=== PATIENT | male | born 1940 | race Caucasian/White ===

== ENCOUNTER 2016-09-21 07:25 | Day surgery (SDC) | payer MEDICARE, BC ==
[2016-09-20 10:16] VITALS: BMI 36.1
[~2016-09-21 07:25] MED LIST: LACTATED RINGERS 1,000 ML IV SCH; LIDOCAINE 1% 20 ML VIAL (10MG/ML) FOR IV START INTRADERMA PRN
[2016-09-21 07:43] VITALS: RESP 16; TEMP 97.3
[2016-09-21 07:57] LABS: Glucose,Whole Blood 152 mg/dL (75-99)
--- NOTE | 2016-09-21 08:10 | P.GSHP ---
History of Present Illness H&P Date: 09/21/16 CHIEF COMPLAINT: GERD HISTORY OF PRESENT ILLNESS: The patient is a 75-year-old male who presents reports gastroesophageal reflux disease. Upper endoscopy was offered for further evaluation and management. PAST MEDICAL HISTORY: Please see list. PAST SURGICAL HISTORY: Please see list. MEDICATIONS: Please see list. ALLERGIES: Please see list. SOCIAL HISTORY: No illicit drug use FAMILY HISTORY: No reports of Crohn disease or ulcerative colitis. REVIEW OF ORGAN SYSTEMS: CONSTITUTIONAL: No reports of fevers or chills. GI: Denies any blood in stools or constipation. PHYSICAL EXAM: VITAL SIGNS: Stable GENERAL: Well-developed and pleasant in no acute distress. HEENT: No scleral icterus. Extraocular movements grossly intact. Moist buccal mucosa. NECK: Supple without lymphadenopathy. CHEST: Unlabored respirations. Equal bilateral excursions. CARDIOVASCULAR: Regular rate and rhythm. Distal 2+ pulses. ABDOMEN: Soft, nondistended. MUSCULOSKELETAL: No clubbing, cyanosis, or edema. ASSESSMENT: 1. Gastroesophageal reflux disease PLAN: 1. Recommend proceeding with an upper endoscopy Past Medical History Past Medical History: Coronary Artery Disease (CAD), Chest Pain / Angina, CVA/ TIA, Diabetes Mellitus, GERD/Reflux, Hyperlipidemia, Hypertension, Myocardial Infarction (MD), Prostate Disorder, Sleep Apnea/CPAP/BIPAP Additional Past Medical History / Comment(s): NEUROPATHY RADHA FEET, , CELLULITIS LT ANKLE, NEUROPATHY, POOR CIRULATION OF LOWER LEGS. 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, LT FOOT SKIN GRAFT, RADHA CATARACTS, Past Anesthesia/Blood Transfusion Reactions: No Reported Reaction Date of Last Stent Placement:: UNSURE-2009 Type of Cardiac Device: AICD Device Placement Date:: 2011 Past Psychological History: Anxiety, Depression Smoking Status: Former smoker Past Alcohol Use History: None Reported Additional Past Alcohol Use History / Comment(s): STARTED SMOKING AT AGE 16 QUIT 1975 SMOKED 1 PPD Past Drug Use History: None Reported - Past Family History Mother Family Medical History: CVA/TIA Medications and Allergies Home Medications Medication Instructions Recorded Confirmed Type Aspirin 81 mg PO DAILY 10/17/13 09/21/16 History Atorvastatin [Lipitor] 40 mg PO DAILY 10/17/13 09/20/16 History Cinnamon(Unknown) 1,000 mg PO DAILY 10/17/13 09/21/16 History Furosemide [Lasix] 40 mg PO DAILY 10/17/13 09/21/16 History Glimepiride [Amaryl] 2 mg PO DAILY 10/17/13 09/21/16 History Isosorbide Mononitrate [Imdur] 60 mg PO DAILY 10/17/13 09/21/16 History Lisinopril [Zestril] 10 mg PO DAILY 10/17/13 09/21/16 History Spironolactone [Aldactone] 25 mg PO DAILY 10/17/13 09/21/16 History metFORMIN HCL [Glucophage] 1,000 mg PO BID 10/17/13 09/21/16 History Metoprolol Tartrate [Lopressor] 50 mg PO BID 07/31/15 09/21/16 History Donepezil [Aricept] 10 mg PO HS 08/04/15 09/21/16 History Escitalopram [Lexapro] 10 mg PO DAILY 08/04/15 09/21/16 History sitaGLIPtin [Januvia] 50 mg PO DAILY 08/04/15 09/21/16 History Meclizine [Antivert] 25 mg PO QID PRN 09/20/16 09/21/16 History Memantine HCl [Namenda] 10 mg PO DAILY 09/20/16 09/20/16 History Allergies Allergy/AdvReac Type Severity Reaction Status Date / Time No Known Allergies Allergy Verified 09/20/16 10:09 Surgical - Exam Vital Signs Temp Pulse Resp BP Pulse Ox 97.3 F L 58 L 16 107/61 93 L 09/21/16 07:42 09/21/16 07:42 09/21/16 07:42 09/21/16 07:42 09/21/16 07:42 Results - Labs Abnormal Lab Results - Last 24 Hours (Table) 09/21/16 Range/Units 07:53 POC Glucose (mg/dL) 152 H (75-99) mg/dL
[2016-09-21] MEDS ORDERED: PROPOFOL 10 MG/ML 20 ML VIAL IV ONE (08:12)
--- NOTE | 2016-09-21 08:34 | P.PCN ---
Date of Procedure: 09/21/16 Preoperative Diagnosis: Postoperative Diagnosis: Procedure(s) Performed: Implants: Indications for Procedure: Operative Findings: Description of Procedure: PREOPERATIVE DIAGNOSIS: Dysphagia. Regurgitation. Gastroesophageal reflux disease. POSTOPERATIVE DIAGNOSIS: Dysphagia. Regurgitation. Gastroesophageal reflux disease. Esophageal stricture. Duodenitis. Gastritis. OPERATION: Esophagogastroduodenoscopy with biopsies along antrum. SURGEON: Aysha White MD ANESTHESIA: MAC. INDICATIONS: The patient is a 75-year-old male who presents with a history of reflux disease including dysphagia. Benefits and risks of the procedure were described. Informed consent was obtained. DESCRIPTION: The patient was brought into the endoscopy suite and laid in the left lateral decubitus position. An Olympus gastroscope was passed along the posterior oropharynx down to the distal esophagus where the squamocolumnar junction was encountered at 40 cm from the incisors. The stomach was entered and no bile reflux was found. Additional findings are listed below. Biopsies with cold forceps were obtained of the antrum. The first through third portion of the duodenum was examined and biopsied. Retroflexion of the scope confirmed Hill grade II lower esophageal valve. The squamocolumnar junction demostrated no acute LA grade A erosive esophagitis. Moderate tissue constructions along the distal esophagus was observed including stricture along the GE junction. [employer] 20 mm balloon was used to dilate the distal esophagus for 2 minutes. The stomach was desufflated. The patient tolerated the procedure well. FINDINGS: Squamocolumnar junction 40 cm from the incisors. Diaphragmatic hiatus 40 cm. Hill grade II lower esophageal valve. No LA grade A erosive esophagitis. Mild duodenitis. Minimal superficial gastritis. Tertiary contractions distal esophagus with mild stricture. RECOMMENDATIONS: Recommend manometry history of dysphasia. Upper endoscopy as needed. Plan - Discharge Summary New Discharge Prescriptions: No Action metFORMIN HCL [Glucophage] 1,000 mg PO BID Spironolactone [Aldactone] 25 mg PO DAILY Lisinopril [Zestril] 10 mg PO DAILY Isosorbide Mononitrate [Imdur] 60 mg PO DAILY Glimepiride [Amaryl] 2 mg PO DAILY Furosemide [Lasix] 40 mg PO DAILY Cinnamon(Unknown) 1,000 mg PO DAILY Atorvastatin [Lipitor] 40 mg PO DAILY Aspirin 81 mg PO DAILY Metoprolol Tartrate [Lopressor] 50 mg PO BID sitaGLIPtin [Januvia] 50 mg PO DAILY Escitalopram [Lexapro] 10 mg PO DAILY Donepezil [Aricept] 10 mg PO HS Memantine HCl [Namenda] 10 mg PO DAILY Meclizine [Antivert] 25 mg PO QID PRN PRN Reason: Vertigo Discharge Medication List Aspirin 81 mg PO DAILY 10/17/13 [History] Atorvastatin [Lipitor] 40 mg PO DAILY 10/17/13 [History] Cinnamon(Unknown) 1,000 mg PO DAILY 10/17/13 [History] Furosemide [Lasix] 40 mg PO DAILY 10/17/13 [History] Glimepiride [Amaryl] 2 mg PO DAILY 10/17/13 [History] Isosorbide Mononitrate [Imdur] 60 mg PO DAILY 10/17/13 [History] Lisinopril [Zestril] 10 mg PO DAILY 10/17/13 [History] Spironolactone [Aldactone] 25 mg PO DAILY 10/17/13 [History] metFORMIN HCL [Glucophage] 1,000 mg PO BID 10/17/13 [History] Metoprolol Tartrate [Lopressor] 50 mg PO BID 07/31/15 [History] Donepezil [Aricept] 10 mg PO HS 08/04/15 [History] Escitalopram [Lexapro] 10 mg PO DAILY 08/04/15 [History] sitaGLIPtin [Januvia] 50 mg PO DAILY 08/04/15 [History] Meclizine [Antivert] 25 mg PO QID PRN 09/20/16 [History] Memantine HCl [Namenda] 10 mg PO DAILY 09/20/16 [History] Follow up Appointment(s)/Referral(s): Aysha White MD [STAFF PHYSICIAN] - 10/04/16 () Patient Instructions/Handouts: Esophageal Dilation (DC) Activity/Diet/Wound Care/Special Instructions: Liquid diet today. Regular diet tomorrow. Discharge Disposition: HOME SELF-CARE
[2016-09-21 08:44] LABS: Glucose,Whole Blood 146 mg/dL (75-99)
[2016-09-21 08:45] VITALS: PULSE 50
[2016-09-21 09:18] VITALS: BP 139/69
== END 2016-09-21 09:30 | disposition home or self-care (01) ==
LOC: ORWHC2ENDO 07:25
PROVIDERS: ATTEND Surgery Plastic and Reconstructive Surgery
DX: K21.0 Gastro-esophageal reflux disease with esophagitis (principal); K22.2 Esophageal obstruction; K29.70 Gastritis, unspecified, without bleeding; K29.80 Duodenitis without bleeding; R13.10 Dysphagia, unspecified; I25.119 Atherosclerotic heart disease of native coronary artery with unspecified angina pectoris; E11.9 Type 2 diabetes mellitus without complications; I25.2 Old myocardial infarction; I10 Essential (primary) hypertension; F03.90 Unspecified dementia, unspecified severity, without behavioral disturbance, psychotic disturbance, mood disturbance, and anxiety; G62.9 Polyneuropathy, unspecified; F32.9 Major depressive disorder, single episode, unspecified; F41.9 Anxiety disorder, unspecified; Z86.14 Personal history of Methicillin resistant Staphylococcus aureus infection; Z87.891 Personal history of nicotine dependence; Z95.5 Presence of coronary angioplasty implant and graft; Z86.73 Personal history of transient ischemic attack (TIA), and cerebral infarction without residual deficits; Z79.899 Other long term (current) drug therapy; Z79.84 Long term (current) use of oral hypoglycemic drugs; Z79.82 Long term (current) use of aspirin; Z95.810 Presence of automatic (implantable) cardiac defibrillator
CPT/HCPCS: 88305; 88342; 43239; 43249; J2704; C1726

== ENCOUNTER → 2016-11-16 | Outpatient (CLI) | payer MEDICARE, BC ==
--- NOTE | 2016-11-16 11:36 | FL ---
MODIFIED SWALLOW / DEGLUTITION STUDY DATE OF EXAM: 11/16/2016 CLINICAL HISTORY: 76-year-old male with dysphagia and sensation of food sticking in the throat and es ophagus. Total fluoroscopy time: 1 minute 5 seconds. Total images: None. TECHNIQUE: Deglutition study is performed utilizing thin liquid barium, honey and nectar thick liqui d barium, barium thick applesauce, and barium coated cracker. COMPARISON: None. FINDINGS: The patient is edentulous. The oral and pharyngeal phases show satisfactory initiation and propagatio n with all modalities tested. Normal mastication is seen with solid modalities tested. There is no evidence of penetration or aspiration with any modality tested. No significant pharyngeal residue wa s appreciated. IMPRESSION: Normal deglutition study. Please refer to speech therapist notes for further details if necessary.
== END | disposition home or self-care (01) ==
LOC: RADFLMAIN 10:23
PROVIDERS: ATTEND Surgery Plastic and Reconstructive Surgery
DX: R13.10 Dysphagia, unspecified (principal)
CPT/HCPCS: 74230

== ENCOUNTER → 2017-04-11 | Outpatient (CLI) | payer MEDICARE, BC ==
[2017-04-11 13:47] LABS: Blood Urea Nitrogen 25 mg/dL (9-20); Non-African American GFR(MDRD) >60 (>60 ml/min/1.73 sqM)
--- NOTE | 2017-04-11 14:37 | CT ---
EXAMINATION TYPE: CT brain wo/w con DATE OF EXAM: 04/11/2017 COMPARISON: 12/01/2013 HISTORY: Visual distortions CT DLP: 2253.0 mGycm, Automated exposure control for dose reduction was used. CONTRAST: Patient injected with 100 ml mL of Omnipaque 300. CT of the brain is performed utilizing 3 mm thick sections through the posterior fossa and 3 mm thick sections through the remaining calvarium. Study is performed within 24 hours of arrival to the hospital. No abnormal hyperdensity is present to suggest an acute intracranial hemorrhage. No mass lesion is evident. No acute infarcts are evident. Periventricular white matter hypodensity is present, likely on the ba sis of chronic white matter ischemic type changes. Findings are stable from 2013. Ventricles and sulci are appropriate for the patient age. There is a retention cyst or polyp within the medial left maxillary sinus. Left septal spurring is no lyudmila. Optic chiasm appears unremarkable. Internal carotid arteries bifurcate into A1 and M1 segments. IMPRESSIONS: 1. Normal pre and postcontrast MRI brain
== END | disposition home or self-care (01) ==
LOC: RADCTMAIN 13:04
PROVIDERS: ATTEND Ophthalmology
DX: H53.8 Other visual disturbances (principal)
CPT/HCPCS: 82565; 84520; 70470; 36415; Q9967

== ENCOUNTER 2017-11-13 10:56 | Inpatient (IN) | payer MEDICARE, BC ==
[2017-11-13] MEDS ORDERED: SODIUM CHLORIDE 0.9% 500 ML IV STA (11:49)
[2017-11-13] MEDS ORDERED: ONDANSETRON 4 MG/2 ML VIAL IVP STA (11:49)
--- NOTE | 2017-11-13 11:53 | ED ---
Nausea/Vomiting/Diarrhea HPI - General Chief complaint: Nausea/Vomiting/Diarrhea Stated complaint: vomiting Time Seen by Provider: 11/13/17 11:25 Source: patient Mode of arrival: wheelchair Limitations: no limitations - History of Present Illness Initial comments: 77-year-old male patient presents to the emergency department today for evaluation of inability to keep down food or fluids. Patient's family states that whenever he eats or drinks anything and immediately comes back up. Patient states that he has been regurgitating foamy substance for the last 3-4 days. States that symptoms have been going on for about 1 month. States that food does not appear to be digested at all when it comes back up. Patient denies any discomfort in his throat, chest, or abdomen. reports that he has been intermittently complaining of some left-sided abdominal pain. Patient does have chronic diarrhea. He denies any fevers or chills with this. Denies any history of stroke. Did have an EGD with Dr. White approximately one year ago for similar but much more mild symptoms and she found no abnormalities. Patient denies any recent rash, fever, chills, shortness breath , chest pain, back pain, numbness, tingling, dizziness, weakness, hematuria, dysuria, urinary urgency, urinary frequency, headache, visual changes, or any other complaints. - Related Data Home Medications Medication Instructions Recorded Confirmed Atorvastatin [Lipitor] 40 mg PO DAILY 10/17/13 11/13/17 Cinnamon(Unknown) 1,000 mg PO DAILY 10/17/13 11/13/17 Furosemide [Lasix] 40 mg PO DAILY 10/17/13 11/13/17 Glimepiride [Amaryl] 2 mg PO DAILY 10/17/13 11/13/17 Isosorbide Mononitrate [Imdur] 60 mg PO DAILY 10/17/13 11/13/17 Lisinopril [Zestril] 10 mg PO DAILY 10/17/13 11/13/17 Spironolactone [Aldactone] 25 mg PO DAILY 10/17/13 11/13/17 metFORMIN HCL [Glucophage] 1,000 mg PO BID 10/17/13 11/13/17 Donepezil [Aricept] 10 mg PO HS 08/04/15 11/13/17 sitaGLIPtin [Januvia] 50 mg PO DAILY 08/04/15 11/13/17 Memantine HCl [Namenda] 10 mg PO DAILY 09/20/16 11/13/17 Aspirin EC [Ecotrin Low Dose] 81 mg PO DAILY 11/13/17 11/13/17 Citalopram Hydrobromide [CeleXA] 20 mg PO DAILY 11/13/17 11/13/17 Metoprolol Succinate (ER) [Toprol 50 mg PO DAILY 11/13/17 11/13/17 Xl] Montelukast [Singulair] 10 mg PO HS 11/13/17 11/13/17 Allergies Allergy/AdvReac Type Severity Reaction Status Date / Time No Known Allergies Allergy Verified 11/13/17 11:38 Review of Systems ROS Statement: Those systems with pertinent positive or pertinent negative responses have been documented in the HPI. ROS Other: All systems not noted in ROS Statement are negative. Past Medical History Past Medical History: Coronary Artery Disease (CAD), Chest Pain / Angina, CVA/ TIA, Diabetes Mellitus, GERD/Reflux, Hyperlipidemia, Hypertension, Myocardial Infarction (CT), Prostate Disorder, Sleep Apnea/CPAP/BIPAP Additional Past Medical History / Comment(s): NEUROPATHY RADHA FEET, , CELLULITIS LT ANKLE, NEUROPATHY, POOR CIRULATION OF LOWER LEGS. 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, LT FOOT SKIN GRAFT, RADHA CATARACTS, Past Anesthesia/Blood Transfusion Reactions: No Reported Reaction Date of Last Stent Placement:: RE-2009 Type of Cardiac Device: AICD Device Placement Date:: 2011 Past Psychological History: Anxiety, Depression Smoking Status: Former smoker Past Alcohol Use History: None Reported Past Drug Use History: None Reported - Past Family History Mother Family Medical History: CVA/TIA General Exam Limitations: no limitations General appearance: alert, in no apparent distress, other (Some well-developed, well-nourished adult male patient in no acute distress. Vital signs upon presentation are temperature 98.1F, pulse 81, respirations 18, blood pressure 145/65, pulse ox 96% on room air.) Eye exam: Present: normal appearance, PERRL, EOMI. Absent: scleral icterus, conjunctival injection, periorbital swelling ENT exam: Present: normal exam, normal oropharynx, mucous membranes moist Respiratory exam: Present: normal lung sounds bilaterally. Absent: respiratory distress, wheezes, rales, rhonchi, stridor Cardiovascular Exam: Present: regular rate, normal rhythm, normal heart sounds. Absent: systolic murmur, diastolic murmur, rubs, gallop, clicks GI/Abdominal exam: Present: soft, tenderness (Right upper quadrant tenderness), normal bowel sounds. Absent: distended, guarding, rebound, rigid Neurological exam: Present: alert, oriented X3, CN II-XII intact Psychiatric exam: Present: normal affect, normal mood Skin exam: Present: warm, dry, intact, normal color. Absent: rash Course Vital Signs 11/13/17 11:02 Temperature 98.1 F Pulse Rate 81 Respiratory 18 Rate Blood Pressure 145/65 O2 Sat by Pulse 96 Oximetry Medical Decision Making - Medical Decision Making 77-year-old male patient presented to the emergency department today for evaluation of regurgitating his food soon after he eats or drinks anything. Physical examination was unremarkable. Patient was given Zofran and IV fluids here in the department. Labs and KUB x-ray were unremarkable. Patient did attempt to drink water again here in the department and immediately brought the water back up. Patient will be admitted to the hospital for evaluation by gastroenterology. I did discuss results and plan with the patient and his family, they are agreeable. - Lab Data Result diagrams: 11/13/17 12:09 11/13/17 12:09 Lab Results 11/13/17 11/13/17 Range/Units 12:09 12:09 WBC 8.5 (3.8-10.6) k/uL RBC 3.44 L (4.30-5.90) m/uL Hgb 10.9 L (13.0-17.5) gm/dL Hct 31.1 L (39.0-53.0) % MCV 90.5 (80.0-100.0) fL MCH 31.7 (25.0-35.0) pg MCHC 35.0 (31.0-37.0) g/dL RDW 15.6 H (11.5-15.5) % Plt Count 158 (150-450) k/uL Neutrophils % 79 % Lymphocytes % 11 % Monocytes % 5 % Eosinophils % 2 % Basophils % 0 % Neutrophils # 6.7 (1.3-7.7) k/uL Lymphocytes # 1.0 (1.0-4.8) k/uL Monocytes # 0.4 (0-1.0) k/uL Eosinophils # 0.2 (0-0.7) k/uL Basophils # 0.0 (0-0.2) k/uL Hyperchromasia Slight Poikilocytosis Slight Sodium 137 (137-145) mmol/L Potassium 4.7 (3.5-5.1) mmol/L Chloride 105 (98-107) mmol/L Carbon Dioxide 20 L (22-30) mmol/L Anion Gap 12 mmol/L BUN 29 H (9-20) mg/dL Creatinine 1.40 H (0.66-1.25) mg/dL Est GFR (CKD-EPI)AfAm 56 (>60 ml/min/1.73 sqM) Est GFR (CKD-EPI)NonAf 48 (>60 ml/min/1.73 sqM) Glucose 188 H (74-99) mg/dL Calcium 9.5 (8.4-10.2) mg/dL Total Bilirubin 0.8 (0.2-1.3) mg/dL AST 29 (17-59) U/L ALT 40 (21-72) U/L Alkaline Phosphatase 93 (38-126) U/L Total Protein 7.0 (6.3-8.2) g/dL Albumin 4.1 (3.5-5.0) g/dL Amylase 64 (30-110) U/L Lipase 179 (23-300) U/L - Radiology Data Radiology results: report reviewed, image reviewed KUB x-ray of the abdomen was obtained, scattered gas seen in nondistended small bowel loops. Gas is seen in nondistended colon. Right-sided pelvic blister present. Metallic hardware from the left hip arthroplasties partially imaged. There is cardiomegaly with multilead pacemaker/AICD. No pneumoperitoneum is noted. Lung bases are clear. Impression by Dr. German shows overall nonobstructive bowel gas pattern. Disposition Clinical Impression: Esophageal obstruction Disposition: ADMITTED IP TO THIS [facility] Condition: Serious Referrals: Rachid Jalloh MD [Primary Care Provider] - 1-2 days Decision to Admit Reason: Admit from EC Decision Date: 11/13/17 Decision Time: 14:27
[2017-11-13 12:28] LABS: Basophils % (A) 0 %; Eosinophils # (A) 0.2 k/uL (0-0.7); Eosinophils % (A) 2 %; HCT 31.1 % (39.0-53.0); HGB 10.9 gm/dL (13.0-17.5); Hyperchromasia Slight; Lymphocytes % (A) 11 %; MCH 31.7 pg (25.0-35.0); MCV 90.5 fL (80.0-100.0); Mean Platelet Volume 7.9; Monocytes # (A) 0.4 k/uL (0-1.0); Monocytes % (A) 5 %; Neutrophils # (A) 6.7 k/uL (1.3-7.7); Neutrophils % (A) 79 %; Platelet Count 158 k/uL (150-450); Poikilocytosis Slight; RBC 3.44 m/uL (4.30-5.90); RDW 15.6 % (11.5-15.5); WBC 8.5 k/uL (3.8-10.6)
[2017-11-13 12:38] LABS: Albumin 4.1 g/dL (3.5-5.0); Calcium 9.5 mg/dL (8.4-10.2); Potassium 4.7 mmol/L (3.5-5.1); Total Bilirubin 0.8 mg/dL (0.2-1.3)
--- NOTE | 2017-11-13 13:57 | XR ---
EXAMINATION TYPE: XR KUB DATE OF EXAM: 11/13/2017 1:51 PM CLINICAL HISTORY: Diarrhea with nausea and vomiting TECHNIQUE: Supine and upright images of the abdomen are obtained. COMPARISON: CT chest abdomen and pelvis April 02, 2013. FINDINGS: Scattered gas is seen in non-distended small bowel loops. Gas is seen in non-distended col on. Right-sided pelvic phleboliths are present. Metallic hardware from left hip arthroplasty is parti ally imaged. There is cardiomegaly with multi lead pacemaker/AICD. No pneumoperitoneum is noted. Lung bases are clear. IMPRESSION: Overall nonobstructive bowel gas pattern.
[2017-11-13] MEDS ORDERED: NALOXONE 0.4 MG/ML 1 ML VIAL IV PRN (14:22)
[2017-11-13] MEDS ORDERED: ONDANSETRON 4 MG/2 ML VIAL IVP PRN (14:22)
[2017-11-13] MEDS ORDERED: SODIUM CHLORIDE 0.9% 1,000 ML IV SCH (14:30)
[2017-11-13 15:49] VITALS: BMI 32.3
[2017-11-13 16:35] LABS: Glucose,Whole Blood 146 mg/dL (75-99)
[2017-11-13] MEDS ORDERED: SPIRONOLACTONE 25 MG TAB PO SCH (16:45)
[2017-11-13] MEDS ORDERED: LISINOPRIL 10 MG TAB PO SCH (16:45)
[2017-11-13] MEDS: ISOSORBIDE MONONITRATE ER 30 MG TAB.ER.24H PO SCH (17:20)
[2017-11-13] MEDS: METOPROLOL SUCCINATE (ER) 50 MG TAB.ER.24H PO SCH (17:20)
[2017-11-13] MEDS: MEMANTINE 10 MG TAB PO SCH (17:20)
[2017-11-13] MEDS: LINAGLIPTIN 5 MG TABLET PO SCH (17:21)
[2017-11-13] MEDS: CITALOPRAM HYDROBROMIDE 20 MG TAB PO SCH (17:21)
[2017-11-13] MEDS: INSULIN ASPART 100 UNIT/ML 1 ML 10 ML VIAL SQ SCH (17:41)
--- NOTE | 2017-11-13 19:43 | HP ---
HISTORY AND PHYSICAL PRESENTING COMPLAINT: Difficulty swallowing. HISTORY OF PRESENTING COMPLAINT: This is a 77-year-old patient of Dr. Jalloh with a rather extensive medical history. Chronic stable medical conditions include coronary artery disease, diabetes, GERD, hypertension, hyperlipidemia, sleep apnea, peripheral neuropathy. The patient in November of last year did undergo EGD by Dr. White and an esophageal stricture was found that was dilated. The patient does not have too much recollection of the same except for what is in the notes. The patient now for over 4 to 5 weeks has been having trouble more and more with swallowing and things are coming up both the solids and the liquids. The patient denies any obvious weight loss. He is not the best of historians. No other family is present right now. There is no pain with swallowing and patient is not sure exactly where the food gets stuck. Hence patient presented. REVIEW OF SYSTEMS: CONSTITUTIONAL: Tired. HEENT: Decreased hearing. RESPIRATORY none. CARDIOVASCULAR: None. GASTROINTESTINAL as above. GENITOURINARY: None. MUSCULOSKELETAL: Arthritic pain in joints. DERMATOLOGICAL and HEMATOLOGIC, LYMPHATICS: None. PSYCHIATRY none. NEUROLOGICAL: Numbness and tingling in the feet. PAST MEDICAL HISTORY: Coronary artery disease with stent, angina, stroke, diabetes mellitus type 2, GERD, hypertension, hyperlipidemia, prostate disorder, sleep apnea, peripheral neuropathy, poor circulation lower extremities, VRE and MRSA infection, left ankle. PAST SURGICAL HISTORY: Cardiac cath with stent, total left hip, right foot great and 2nd toe amputation, left foot skin graft, bilateral cataracts, AICD. PSYCH HISTORY: History of anxiety and depression. SOCIAL HISTORY: Patient smoked for about 18 years, stopped in 1974. Was a cervantes. Lives with his . FAMILY HISTORY: Stroke. HOME MEDICATIONS: 1. Januvia 50 mg a day. 2. Glucophage 1000 mg p.o. b.i.d. 3. Aldactone 25 mg a day. 4. Singulair 10 mg q.h.s. 5. Toprol-XL 50 mg a day. 6. Namenda 10 mg a day. 7. Zestril 10 mg a day. 8. Imdur 60 mg a day. 9. Amaryl 2 mg a day. 10.Lasix 40 mg a day. 11.Aricept 10 mg p.o. at bedtime. 12.Celexa 20 mg a day. 13.Cinnamon 1000 mg p.o. daily. 14.Lipitor 40 mg a day. 15.Aspirin 81 mg a day. ALLERGIES: None. PHYSICAL EXAMINATION: VITAL SIGNS: Temperature 98.1, pulse 81, respiratory 18, blood pressure 145/65, pulse ox 96% on room air. GENERAL APPEARANCE: Well built, BMI 32.3, lying in bed, tired appearing. EYES: Conjunctivae pale. HEENT: External appearance of nose and ears normal. Oral cavity normal. Decreased hearing. NECK: JVD not raised. Mass not palpable. RESPIRATORY: Effort normal. LUNGS: Slightly decreased breath sounds. CARDIOVASCULAR: 1st and second sounds normal. No edema. ABDOMEN: Soft, nontender. Liver and spleen not palpable. LYMPHATICS: No lymph nodes palpable in the neck or axilla. PSYCHIATRY is able to answer simple questions. The patient is forgetful about more details. MUSCULOSKELETAL: Evidence of osteoarthritis especially in the hands. INVESTIGATIONS: White count 8.5, hemoglobin 10.9, potassium 4.7, BUN 29, creatinine 1.40. The patient's BUN and creatinine on April 11, 2017 was 25/1.03. ASSESSMENT: 1. Progressive dysphagia, not painful, in a patient who has had prior EGD with esophageal dilatation, not able to keep any food down now. Admitted for the same symptoms. Now possibly resulting in acute renal failure from poor oral intake. This is present to both solids and liquids. 2. Coronary artery disease with prior history of stent. 3. Diabetes mellitus type 2 on oral hypoglycemics. 4. Hyperlipidemia. 5. Essential hypertension. 6. Prostate disorder. 7. Obstructive sleep apnea does not use a CPAP. 8. Peripheral neuropathy probably from diabetes. 9. Renal failure cannot say if this is acute on chronic component at this point. PLAN: The patient will be put on clear liquids. Consultation made to Dr. White, who did EGD about a year ago. Possible view to repeat EGD with dilatation. At this point, we will hold off patient's Aldactone, NAZ inhibitor. We will hydrate the patient gently. We will check the patient's UA and an ultrasound. Other home medications are resumed. Care was discussed with the patient. Accu-Cheks will be followed. Care was discussed with the patient in detail. Copy to Dr. Jalloh. MMADRIANNAL / IJN: [id number] /
[2017-11-13 20:09] LABS: Glucose,Whole Blood 190 mg/dL (75-99)
[2017-11-13] MEDS: SODIUM CHLORIDE 0.9% 1,000 ML IV SCH (20:33)
[2017-11-13] MEDS: DONEPEZIL 10 MG TAB PO SCH (20:47)
[2017-11-13] MEDS: MONTELUKAST 10 MG TAB PO SCH (20:47)
--- NOTE | 2017-11-13 22:25 | US ---
EXAMINATION TYPE: US kidneys/renal and bladder DATE OF EXAM: 11/13/2017 COMPARISON: NONE CLINICAL HISTORY: renal failure. EXAM MEASUREMENTS: Right Kidney: 10.1x 5.6 x 5.2 cm Left Kidney: 11.1 x 5.5 x 5.1 cm Right Kidney: No hydronephrosis or masses or calcifications. Left Kidney: No hydronephrosis or masses or calcifications. Bladder: Anechoic Bilateral Jets seen: No IMPRESSION: NEGATIVE FOR OBSTRUCTIVE UROPATHY.
[2017-11-14 01:15] LABS: Amorphous Sediment,Urine Rare /hpf; Appearance,Urine Clear (Clear); Bacteria,Urine Rare /hpf; Bilirubin,Urine Negative (Negative); Blood,Urine Negative (Negative); Color,Urine Yellow; Glucose,Urine (UA) Negative (Negative); Hyaline Casts,Urine 3 /lpf (0-2); Ketones,Urine Negative (Negative); Leukocyte Esterase,Urine Trace (Negative); Mucus,Urine Rare /hpf; Nitrite,Urine Negative (Negative); Protein,Urine Trace (Negative); RBC,Urine <1 /hpf (0-5); Specific Gravity,Urine 1.018 (1.001-1.035); Urobilinogen,Urine <2.0 mg/dL (<2.0); WBC,Urine 2 /hpf (0-5)
[2017-11-14 06:59] LABS: Glucose,Whole Blood 164 mg/dL (75-99)
[2017-11-14 07:52] LABS: Calcium 8.9 mg/dL (8.4-10.2); Potassium 4.6 mmol/L (3.5-5.1)
[2017-11-14 08:01] LABS: Basophils % (A) 0 %; Eosinophils # (A) 0.2 k/uL (0-0.7); Eosinophils % (A) 3 %; HCT 27.5 % (39.0-53.0); HGB 9.7 gm/dL (13.0-17.5); Lymphocytes % (A) 14 %; MCH 33.1 pg (25.0-35.0); MCHC 35.4 g/dL (31.0-37.0); MCV 93.5 fL (80.0-100.0); Mean Platelet Volume 7.3; Monocytes # (A) 0.4 k/uL (0-1.0); Monocytes % (A) 5 %; Neutrophils # (A) 5.2 k/uL (1.3-7.7); Neutrophils % (A) 76 %; Platelet Count 149 k/uL (150-450); Poikilocytosis Slight; RBC 2.94 m/uL (4.30-5.90); RDW 15.7 % (11.5-15.5); WBC 6.9 k/uL (3.8-10.6)
[2017-11-14] MEDS: ISOSORBIDE MONONITRATE ER 30 MG TAB.ER.24H PO SCH (08:02)
[2017-11-14] MEDS: METOPROLOL SUCCINATE (ER) 50 MG TAB.ER.24H PO SCH (08:02)
[2017-11-14] MEDS: MEMANTINE 10 MG TAB PO SCH (08:02)
[2017-11-14] MEDS: LINAGLIPTIN 5 MG TABLET PO SCH (08:02)
[2017-11-14] MEDS: CITALOPRAM HYDROBROMIDE 20 MG TAB PO SCH (08:02)
[2017-11-14] MEDS: ATORVASTATIN 40 MG TAB PO SCH (08:02)
[2017-11-14] MEDS: INSULIN ASPART 100 UNIT/ML 1 ML 10 ML VIAL SQ SCH ×3 (08:05→17:35)
[2017-11-14] MEDS: SODIUM CHLORIDE 0.9% 1,000 ML IV SCH ×3 (08:13→22:28)
[2017-11-14 11:32] LABS: Glucose,Whole Blood 179 mg/dL (75-99)
--- NOTE | 2017-11-14 14:39 | P.GSCN ---
History of Present Illness Consult date: 11/14/17 Reason for Consult: Pain nausea vomiting History of present illness: 77-year-old male known to Dr. White service recent emergency room with a chief complaint of intractable nausea vomiting and inability to keep fluids down. Family members at the bedside reported that whenever the patient tried eat or drink anything and vomited came back up. Vomiting foamy substance for the past several days. According to the patient symptoms have been ongoing for at least a month. Patient states it feels like food is not being digested all discomforts back up reportedly been experiencing left-sided abdominal discomfort. Reportedly experienced chronic diarrhea. Patient did have an EGD done September 2016 the report reviewed indicated that patient had a balloon dilatation of the esophagus with biopsies. The EGD done in September 2016 showed esophageal stricture which was dilated at that time patient denies any weight loss states there is no pain when swallowing patient did undergo an ultrasound kidney kidney renal and bladder report indicated was negative for obstructive uropathy KUB report reviewed nonobstructive bowel gas pattern Currently patient is resting in bed states has a nausea sensation but has not vomited Review of Systems Essentially unremarkable except as mentioned in the present illness Past Medical History Past Medical History: Coronary Artery Disease (CAD), Chest Pain / Angina, CVA/ TIA, Diabetes Mellitus, GERD/Reflux, Hyperlipidemia, Hypertension, Myocardial Infarction ([place]), Prostate Disorder, Sleep Apnea/CPAP/BIPAP Additional Past Medical History / Comment(s): NEUROPATHY RADHA FEET, , CELLULITIS LT ANKLE, NEUROPATHY, POOR CIRULATION OF LOWER LEGS. 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; 08/04/15-MRSA MDRO Source:: VRE and MRSA-Left Ankle Past Surgical History: Heart Catheterization With Stent, Joint Replacement Additional Past Surgical History / Comment(s): TOTAL LT HIP, 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, LT FOOT SKIN GRAFT, RADHA CATARACTS, Past Anesthesia/Blood Transfusion Reactions: No Reported Reaction Date of Last Stent Placement:: UNSURE-2009 Type of Cardiac Device: AICD Device Placement Date:: 2011 Past Psychological History: Anxiety, Depression Smoking Status: Former smoker Past Alcohol Use History: None Reported Additional Past Alcohol Use History / Comment(s): STARTED SMOKING AT AGE 16 QUIT 1975 SMOKED 1 PPD Past Drug Use History: None Reported - Past Family History Mother Family Medical History: CVA/TIA Medications and Allergies Home Medications Medication Instructions Recorded Confirmed Type Atorvastatin [Lipitor] 40 mg PO DAILY 10/17/13 11/13/17 History Cinnamon(Unknown) 1,000 mg PO DAILY 10/17/13 11/13/17 History Furosemide [Lasix] 40 mg PO DAILY 10/17/13 11/13/17 History Glimepiride [Amaryl] 2 mg PO DAILY 10/17/13 11/13/17 History Isosorbide Mononitrate [Imdur] 60 mg PO DAILY 10/17/13 11/13/17 History Lisinopril [Zestril] 10 mg PO DAILY 10/17/13 11/13/17 History Spironolactone [Aldactone] 25 mg PO DAILY 10/17/13 11/13/17 History metFORMIN HCL [Glucophage] 1,000 mg PO BID 10/17/13 11/13/17 History Donepezil [Aricept] 10 mg PO HS 08/04/15 11/13/17 History sitaGLIPtin [Januvia] 50 mg PO DAILY 08/04/15 11/13/17 History Memantine HCl [Namenda] 10 mg PO DAILY 09/20/16 11/13/17 History Aspirin EC [Ecotrin Low Dose] 81 mg PO DAILY 11/13/17 11/13/17 History Citalopram Hydrobromide [CeleXA] 20 mg PO DAILY 11/13/17 11/13/17 History Metoprolol Succinate (ER) [Toprol 50 mg PO DAILY 11/13/17 11/13/17 History Xl] Montelukast [Singulair] 10 mg PO HS 11/13/17 11/13/17 History Allergies Allergy/AdvReac Type Severity Reaction Status Date / Time No Known Allergies Allergy Verified 11/13/17 11:38 Surgical - Exam Vital Signs Temp Pulse Resp BP Pulse Ox 98.1 F 81 18 145/65 96 11/13/17 11:02 11/13/17 11:02 11/13/17 11:02 11/13/17 11:02 11/13/17 11:02 GENERAL APPEARANCE: 77-year-old patient is alert, oriented, in no acute distress. Sitting up in bed at bedside VITAL SIGNS: Reviewed HEENT: Head is normocephalic and atraumatic. Pupils are equal and reactive. The nares are patent. Oropharynx is clear without lesions. NECK: Supple without lymphadenopathy. Traches midline. HEART: S1, S2. Regular rate and rhythm. No murmur noted LUNGS: No crackles or wheezes are heard. Adequate air movement bilaterally ABDOMEN: Soft, nontender, nondistended with good bowel sounds. No peritoneal signs. No palpable organomegaly or masses. Reports a nausea sensation no emesis EXTREMITIES: Normal skin color and turgor. No cyanosis, rash, ulceration, clubbing or edema. Radial pedal pulses are 2/4 bilaterally. NEUROLOGICAL: No focal deficits. Strength and sensation are grossly intact. Results - Labs 11/14/17 06:57 11/14/17 06:57 Abnormal Lab Results - Last 24 Hours (Table) 11/13/17 11/13/17 11/14/17 Range/Units 16:28 20:06 00:53 RBC (4.30-5.90) m/uL Hgb (13.0-17.5) gm/dL Hct (39.0-53.0) % RDW (11.5-15.5) % Plt Count (150-450) k/uL Chloride (98-107) mmol/L BUN (9-20) mg/dL Creatinine (0.66-1.25) mg/dL Glucose (74-99) mg/dL POC Glucose (mg/dL) 146 H 190 H (75-99) mg/dL Urine Protein Trace H (Negative) Ur Leukocyte Esterase Trace H (Negative) Amorphous Sediment Rare H (None) /hpf Urine Bacteria Rare H (None) /hpf Hyaline Casts 3 H (0-2) /lpf Urine Mucus Rare H (None) /hpf 11/14/17 11/14/17 11/14/17 Range/Units 06:57 06:57 06:57 RBC 2.94 L (4.30-5.90) m/uL Hgb 9.7 L (13.0-17.5) gm/dL Hct 27.5 L (39.0-53.0) % RDW 15.7 H (11.5-15.5) % Plt Count 149 L (150-450) k/uL Chloride 108 H (98-107) mmol/L BUN 25 H (9-20) mg/dL Creatinine 1.36 H (0.66-1.25) mg/dL Glucose 158 H (74-99) mg/dL POC Glucose (mg/dL) 164 H (75-99) mg/dL Urine Protein (Negative) Ur Leukocyte Esterase (Negative) Amorphous Sediment (None) /hpf Urine Bacteria (None) /hpf Hyaline Casts (0-2) /lpf Urine Mucus (None) /hpf 11/14/17 Range/Units 11:29 RBC (4.30-5.90) m/uL Hgb (13.0-17.5) gm/dL Hct (39.0-53.0) % RDW (11.5-15.5) % Plt Count (150-450) k/uL Chloride (98-107) mmol/L BUN (9-20) mg/dL Creatinine (0.66-1.25) mg/dL Glucose (74-99) mg/dL POC Glucose (mg/dL) 179 H (75-99) mg/dL Urine Protein (Negative) Ur Leukocyte Esterase (Negative) Amorphous Sediment (None) /hpf Urine Bacteria (None) /hpf Hyaline Casts (0-2) /lpf Urine Mucus (None) /hpf Diabetes panel 11/14/17 Range/Units 06:57 Sodium 138 (137-145) mmol/L Potassium 4.6 (3.5-5.1) mmol/L Chloride 108 H (98-107) mmol/L Carbon Dioxide 22 (22-30) mmol/L BUN 25 H (9-20) mg/dL Creatinine 1.36 H (0.66-1.25) mg/dL Glucose 158 H (74-99) mg/dL Calcium 8.9 (8.4-10.2) mg/dL Calcium panel 11/14/17 Range/Units 06:57 Calcium 8.9 (8.4-10.2) mg/dL Pituitary panel 11/14/17 Range/Units 06:57 Sodium 138 (137-145) mmol/L Potassium 4.6 (3.5-5.1) mmol/L Chloride 108 H (98-107) mmol/L Carbon Dioxide 22 (22-30) mmol/L BUN 25 H (9-20) mg/dL Creatinine 1.36 H (0.66-1.25) mg/dL Glucose 158 H (74-99) mg/dL Calcium 8.9 (8.4-10.2) mg/dL Adrenal panel 11/14/17 Range/Units 06:57 Sodium 138 (137-145) mmol/L Potassium 4.6 (3.5-5.1) mmol/L Chloride 108 H (98-107) mmol/L Carbon Dioxide 22 (22-30) mmol/L BUN 25 H (9-20) mg/dL Creatinine 1.36 H (0.66-1.25) mg/dL Glucose 158 H (74-99) mg/dL Calcium 8.9 (8.4-10.2) mg/dL Assessment and Plan Assessment: Impression Progressive dysphagia nonpainful prior EGD September 2016 esophageal dilatation for esophageal stricture Esophageal reflux disease Bilateral neuropathy feet Plan IV fluid as ordered Schedule EGD tomorrow November 15 Will follow with you with further surgical recommendations pending DVT and GI prophylaxis Surgical consultation note dictated for Dr. White The above impression and plan of care have been discussed and directed by signing physician. Dinorah Eason nurse practitioner acting as scribe for signing physician.
[2017-11-14 17:19] LABS: Glucose,Whole Blood 167 mg/dL (75-99)
[2017-11-14 20:11] LABS: Glucose,Whole Blood 197 mg/dL (75-99)
[2017-11-14] MEDS: DONEPEZIL 10 MG TAB PO SCH (20:57)
[2017-11-14] MEDS: MONTELUKAST 10 MG TAB PO SCH (20:57)
--- NOTE | 2017-11-14 23:35 | PN ---
PROGRESS NOTE DATE OF SERVICE: 11/14/2017 PRESENTING COMPLAINT: Difficulty swallowing. INTERVAL HISTORY: This is a patient who presented with difficulty swallowing and also renal failure, unknown at this point it is acute or chronic. Seen by Dr. White's team. They are contemplating EGD tomorrow. is present at the bedside. No other new symptoms. REVIEW OF SYSTEMS: Done for constitutional, cardiovascular, GI, pulmonary; relevant findings as above. CURRENT MEDICATIONS: Reviewed that include normal saline 75 mL an hour. EXAMINATION: Temperature 97.4, pulse 53, respirations 18, blood pressure 133/83, pulse ox 96% on room air. GENERAL APPEARANCE: Lying in bed, awake. EYES: Pupil equal. Conjunctivae pale. HEENT: External nose and ears normal. Oral cavity normal. Decreased hearing. NECK: JVD not raised. Mass not palpable. RESPIRATORY: Effort normal. LUNGS: Decreased breath sounds. CARDIOVASCULAR: First and second sounds normal. No edema. ABDOMEN: Soft, nontender. Liver and spleen not palpable. PSYCHIATRY: Able to answer simple questions. INVESTIGATIONS: White count 6.9, hemoglobin 9.7. BUN 25, creatinine 1.36. Accu-Cheks are noted. ASSESSMENT: 1. Progressive dysphagia, possible esophageal stricture. Awaiting esophagogastroduodenoscopy. 2. Coronary artery disease, prior history of stent. 3. Diabetes mellitus type 2 on oral hypoglycemic. 4. Hyperlipidemia. 5. Essential hypertension. 6. Prostate disorder. 7. Obstructive sleep apnea. Does not use CPAP. 8. Peripheral neuropathy secondary to diabetes. 9. Renal failure, acute versus chronic. PLAN: Will increase patient's IV fluids to 125 mL an hour, repeat electrolytes in the morning. The patient is awaiting EGD tomorrow. Care was discussed with the patient and at the bedside. MMODL / IJN: [id number] /
[2017-11-15] MEDS: SODIUM CHLORIDE 0.9% 1,000 ML IV SCH ×3 (05:36→23:41)
[2017-11-15 06:58] LABS: Glucose,Whole Blood 181 mg/dL (75-99)
[2017-11-15 07:55] LABS: Calcium 8.6 mg/dL (8.4-10.2)
[2017-11-15] MEDS: ATORVASTATIN 40 MG TAB PO SCH (10:43)
[2017-11-15] MEDS: INSULIN ASPART 100 UNIT/ML 1 ML 10 ML VIAL SQ SCH ×3 (10:43→18:39)
[2017-11-15] MEDS: METOPROLOL SUCCINATE (ER) 50 MG TAB.ER.24H PO SCH (10:49)
[2017-11-15] MEDS: ISOSORBIDE MONONITRATE ER 30 MG TAB.ER.24H PO SCH (10:49)
--- NOTE | 2017-11-15 11:46 | P.HPADDEND ---
H&P Addendum H&P Addendum Date: 11/15/17 Patient presents with history of nausea and vomiting including history of esophageal stricture. We'll proceed with upper endoscopy and balloon dilation.
[2017-11-15 11:48] LABS: Glucose,Whole Blood 151 mg/dL (75-99)
[2017-11-15] MEDS ORDERED: IV FLUID CONTINUATION 1,000 ML IV ONE (12:51)
[2017-11-15] MEDS ORDERED: LIDOCAINE 1% INJ 10MG/ML (20 ML MDV) ONE (12:54)
[2017-11-15] MEDS ORDERED: PROPOFOL 10 MG/ML 20 ML VIAL IV ONE (12:54)
--- NOTE | 2017-11-15 13:48 | P.PCN ---
Date of Procedure: 11/15/17 Description of Procedure: PREOPERATIVE DIAGNOSIS: Dysphagia. Regurgitation. POSTOPERATIVE DIAGNOSIS: Dysphagia. Regurgitation. Gastroesophageal reflux disease. Esophageal stricture. Duodenitis with acute superficial duodenal ulcer second portion Gastritis superficial gastric ulcer antrum without bleeding OPERATION: Esophagogastroduodenoscopy with biopsies along antrum and duodenum Esophagogastroduodenoscopy with balloon dilatation of the esophagus, 20 mm balloon. SURGEON: Aysha White MD ANESTHESIA: MAC. INDICATIONS: The patient is a 77-year-old male who presents with a history of dysphagia. Benefits and risks of the procedure were described. Informed consent was obtained. DESCRIPTION: The patient was brought into the endoscopy suite and laid in the left lateral decubitus position. An Olympus gastroscope was passed along the posterior oropharynx down to the distal esophagus where the squamocolumnar junction was encountered at 40 cm from the incisors. The stomach was entered and no bile reflux was found. Additional findings are listed below. Biopsies with cold forceps were obtained of the antrum. The first through third portion of the duodenum was examined and biopsied. Retroflexion of the scope confirmed Hill grade II lower esophageal valve. The squamocolumnar junction demostrated no acute LA grade A erosive esophagitis. Foodstuff was found along the mid to distal esophagus. Tertiary contractions were identified along the mid to distal esophagus. [employer] 20 mm balloon was used to dilate the distal esophagus for 2 minutes. The stomach was desufflated. The patient tolerated the procedure well. FINDINGS: Squamocolumnar junction 40 cm from the incisors. Diaphragmatic hiatus 40 cm. Hill grade II lower esophageal valve. No LA grade A erosive esophagitis. Superficial duodenal ulcer second portion without bleeding with duodenitis Superficial gastric ulcer antrum without bleeding with gastritis Tertiary contractions distal esophagus with mild stricture. RECOMMENDATIONS: Recommend swallow evaluation Patient has history of underlying dementia/Parkinson's which may present with esophageal dysmotility Plan - Discharge Summary Discharge Rx Participant: Yes New Discharge Prescriptions: No Action metFORMIN HCL [Glucophage] 1,000 mg PO BID Spironolactone [Aldactone] 25 mg PO DAILY Lisinopril [Zestril] 10 mg PO DAILY Isosorbide Mononitrate [Imdur] 60 mg PO DAILY Glimepiride [Amaryl] 2 mg PO DAILY Furosemide [Lasix] 40 mg PO DAILY Cinnamon(Unknown) 1,000 mg PO DAILY Atorvastatin [Lipitor] 40 mg PO DAILY sitaGLIPtin [Januvia] 50 mg PO DAILY Donepezil [Aricept] 10 mg PO HS Memantine HCl [Namenda] 10 mg PO DAILY Montelukast [Singulair] 10 mg PO HS Metoprolol Succinate (ER) [Toprol Xl] 50 mg PO DAILY Citalopram Hydrobromide [CeleXA] 20 mg PO DAILY Aspirin EC [Ecotrin Low Dose] 81 mg PO DAILY Discharge Medication List Atorvastatin [Lipitor] 40 mg PO DAILY 10/17/13 [History] Cinnamon(Unknown) 1,000 mg PO DAILY 10/17/13 [History] Furosemide [Lasix] 40 mg PO DAILY 10/17/13 [History] Glimepiride [Amaryl] 2 mg PO DAILY 10/17/13 [History] Isosorbide Mononitrate [Imdur] 60 mg PO DAILY 10/17/13 [History] Lisinopril [Zestril] 10 mg PO DAILY 10/17/13 [History] Spironolactone [Aldactone] 25 mg PO DAILY 10/17/13 [History] metFORMIN HCL [Glucophage] 1,000 mg PO BID 10/17/13 [History] Donepezil [Aricept] 10 mg PO HS 08/04/15 [History] sitaGLIPtin [Januvia] 50 mg PO DAILY 08/04/15 [History] Memantine HCl [Namenda] 10 mg PO DAILY 09/20/16 [History] Aspirin EC [Ecotrin Low Dose] 81 mg PO DAILY 11/13/17 [History] Citalopram Hydrobromide [CeleXA] 20 mg PO DAILY 11/13/17 [History] Metoprolol Succinate (ER) [Toprol Xl] 50 mg PO DAILY 11/13/17 [History] Montelukast [Singulair] 10 mg PO HS 11/13/17 [History] Follow up Appointment(s)/Referral(s): Rachid Jalloh MD [Primary Care Provider] - 1-2 days
[2017-11-15] MEDS: LINAGLIPTIN 5 MG TABLET PO SCH (15:21)
[2017-11-15] MEDS: CITALOPRAM HYDROBROMIDE 20 MG TAB PO SCH (15:21)
[2017-11-15] MEDS: MEMANTINE 10 MG TAB PO SCH (15:21)
[2017-11-15 17:20] LABS: Glucose,Whole Blood 135 mg/dL (75-99)
--- NOTE | 2017-11-15 18:36 | PN ---
PROGRESS NOTE DATE OF SERVICE: 11/15/2017 PRESENTING COMPLAINT: Difficulty swallowing. INTERVAL HISTORY: Patient presented with difficulty swallowing, acute renal failure; not clear if this is acute on chronic. Seen by me this morning. This afternoon patient was supposed to go down for an endoscopy. Patient did undergo endoscopy, the results of which came back showing that patient did not have any obvious stricture. REVIEW OF SYSTEMS: Done for constitutional, cardiovascular, GI, pulmonary; relevant findings as above. CURRENT MEDICATIONS: Reviewed. They include IV fluids. PHYSICAL EXAMINATION: Temperature 97.6, pulse 61, respiration 16, blood pressure 115/69, pulse ox 96% on room air. GENERAL APPEARANCE: Lying in bed, awake. EYES: Pupils equal. Conjunctivae pale. HEENT: External appearance of nose and ears normal. Oral cavity normal. Decreased hearing. NECK: JVD not raised. Mass not palpable. RESPIRATORY: Effort normal. LUNGS: Decreased breath sounds. CARDIOVASCULAR: First and second sounds normal. No edema. ABDOMEN: Soft, non-tender. Liver and spleen not palpable. PSYCHIATRY: Awake. Answering simple questions. INVESTIGATIONS: Creatinine 1.16. Potassium 4. ASSESSMENT: 1. Progressive dysphagia with stricture not found on the esophagogastroduodenoscopy. 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 Will need further studies. 2. Coronary artery disease with prior history of stent. 3. Diabetes mellitus, type 2, on oral hypoglycemic. 4. Hyperlipidemia. 5. Essential hypertension. 6. Prostate disorder. 7. Obstructive sleep apnea. Does not use CPAP. 8. Peripheral neuropathy secondary to diabetes. 9. Chronic kidney disease, probably stage II, probably nephrosclerosis. 10.Acute renal failure component, improved with hydration. PLAN: Continue to hydrate the patient. Check electrolytes in the morning. Will order fluoroscopy, barium swallow. MMODL / IJN: [id number] /
--- NOTE | 2017-11-15 20:09 | P.PN ---
Subjective Progress Note Date: 11/15/17 He reports that since his esophageal dilation is able to swallow well. Had a long discussion with his who reports that he often eats quickly with solid foods and has troubles with swallowing at home. Objective - Vital Signs Vital signs: Vital Signs Temp 97.6 F 11/15/17 08:01 Pulse 50 L 11/15/17 13:45 Resp 16 11/15/17 08:01 BP 117/53 11/15/17 13:45 Pulse Ox 94 L 11/15/17 13:45 Intake & Output 11/15/17 11/15/17 11/16/17 06:59 18:59 06:59 Intake Total 1511 1013 Balance 1511 1013 Intake: IV 200 Intake, IV Titration 1151 813 Amount Sodium Chloride 0.9% 1, 1001 813 000 ml @ 125 mls/hr IV . Q8H MORALES Rx#:[id number] Sodium Chloride 0.9% 1, 150 000 ml @ 75 mls/hr IV . [id number] MORALES Rx#:[id number] Oral 360 Other: Voiding Method Toilet Urinal Diaper # Voids 1 # Bowel Movements 0 # Emeses 0 - Exam GENERAL: Well developed and in no acute distress. Pleasant. HEENT: No sclera icterus. Extraocular movements grossly intact. Moist buccal mucosa. Head is atraumatic, normocephalic. Hears conversational speech. No nasal drainage. NECK: Supple without lymphadenopathy. CHEST: Non-labored respirations and equal bilateral excursions. CARDIOVASCULAR: Regular rate and rhythm. Palpable 2+ radial pulses. ABDOMEN: Soft, nontender. Nondistended. MUSCULOSKELETAL: No clubbing, cyanosis or edema. NEUROLOGIC: No focal or lateralizing signs. PSYCH: Appropriate affect. Alert and oriented to person, place and time. SKIN: Good skin turgor. Well perfused. - Labs CBC & Chem 7: 11/14/17 06:57 11/15/17 06:57 Labs: Abnormal Lab Results - Last 24 Hours (Table) 11/14/17 11/15/17 11/15/17 Range/Units 20:09 06:54 06:57 Chloride 108 H (98-107) mmol/L Carbon Dioxide 21 L (22-30) mmol/L Glucose 164 H (74-99) mg/dL POC Glucose (mg/dL) 197 H 181 H (75-99) mg/dL 11/15/17 11/15/17 Range/Units 11:46 17:19 Chloride (98-107) mmol/L Carbon Dioxide (22-30) mmol/L Glucose (74-99) mg/dL POC Glucose (mg/dL) 151 H 135 H (75-99) mg/dL Assessment and Plan (1) Esophageal stricture Current Visit: Yes Status: Acute Code(s): K22.2 - ESOPHAGEAL OBSTRUCTION SNOMED Code(s): 94626389 (2) Dysphagia Current Visit: Yes Status: Acute Code(s): R13.10 - DYSPHAGIA, UNSPECIFIED SNOMED Code(s): 48544288 Plan: 1. Pureed diet advised to minimize risk for future troubles with swallowing. 2. Upper endoscopy is needed in the future with balloon dilation 3. Esophagram prior to discharge. 4. Patient cleared from a surgical standpoint for discharge when tolerating pured diet
[2017-11-15 20:22] LABS: Glucose,Whole Blood 147 mg/dL (75-99)
[2017-11-15] MEDS: DONEPEZIL 10 MG TAB PO SCH (23:06)
[2017-11-15] MEDS: MONTELUKAST 10 MG TAB PO SCH (23:06)
[2017-11-16] MEDS: SODIUM CHLORIDE 0.9% 1,000 ML IV SCH ×2 (04:28→15:07)
[2017-11-16 06:55] LABS: Glucose,Whole Blood 133 mg/dL (75-99)
[2017-11-16 07:09] LABS: Calcium 8.3 mg/dL (8.4-10.2); Potassium 3.9 mmol/L (3.5-5.1)
--- NOTE | 2017-11-16 10:28 | FL ---
EXAMINATION: Single contrast Cervical and Thoracic Esophagram DATE OF EXAM: 11/16/2017 CLINICAL INDICATION: 77-year-old male dysphagia with regurgitation, patient with EGD yesterday and re ported biopsies. Assess for obstruction. COMPARISON: None Total Fluoroscopy Time: 1 minute 6 seconds. Total images: 28 TECHNIQUE: Patient ingested 50 mL of Omniview 370. FINDINGS: The patient had trouble standing and could not maintain a lateral position. The single swallow in the lateral position showed superficial penetration. There is extensive tertiary peristaltic contractions and mildly dilated esophagus. There is cut off o f the contrast column at the distal esophageal level with recurrent episodes of intraesophageal reflu x. The 5 minute post procedure upright exam showed persistent contrast in the esophagus and some minimal layering contrast in the stomach. One hour post procedure exam shows persistent contrast in the esophagus, narrowing at the distal esop hagus, and similar mild contrast dependent within the stomach. IMPRESSION: 1. Relative severe obstruction at the level of the distal esophagus. 2. Extensive tertiary peristaltic contractions are either reactive to the obstruction or could repres ent presbyesophagus or spasm. 3. One hour post procedure radiograph shows persistent contrast in the esophagus. A small amount has passed into the stomach.
[2017-11-16] MEDS: INSULIN ASPART 100 UNIT/ML 1 ML 10 ML VIAL SQ SCH ×3 (10:50→21:18)
[2017-11-16] MEDS: ISOSORBIDE MONONITRATE ER 30 MG TAB.ER.24H PO SCH (11:11)
[2017-11-16] MEDS: ATORVASTATIN 40 MG TAB PO SCH (11:11)
[2017-11-16] MEDS: LINAGLIPTIN 5 MG TABLET PO SCH (11:11)
[2017-11-16] MEDS: CITALOPRAM HYDROBROMIDE 20 MG TAB PO SCH (11:11)
[2017-11-16] MEDS: MEMANTINE 10 MG TAB PO SCH (11:11)
[2017-11-16] MEDS: METOPROLOL SUCCINATE (ER) 50 MG TAB.ER.24H PO SCH (11:11)
[2017-11-16 11:26] LABS: Glucose,Whole Blood 148 mg/dL (75-99)
[2017-11-16 17:55] LABS: Glucose,Whole Blood 143 mg/dL (75-99)
--- NOTE | 2017-11-16 20:40 | PN ---
PROGRESS NOTE DATE OF SERVICE: 11/16/2017 PRESENTING COMPLAINT: Difficulty swallowing. INTERVAL HISTORY: This is a patient with difficulty swallowing. He underwent an EGD yesterday. Dilatation of the distal esophagus was carried out. Tertiary contractions were found. I did order a barium swallow and it did show maybe a combination of presbyesophagus; it again showed constriction of the distal end of esophagus with recurrent regurgitation. REVIEW OF SYSTEMS: Done for constitutional, cardiovascular, GI, pulmonary; relevant findings as above. It may be noted that the patient is still having severe regurgitation. CURRENT MEDICATIONS: Reviewed. PHYSICAL EXAMINATION: Temperature 98.2, pulse 62, respiration 16, blood pressure 129/69, pulse ox 96% on room air. GENERAL APPEARANCE: Lying in bed, tired-appearing. EYES: Pupils equal. Conjunctivae pale. HEENT: External appearance of nose and ears normal. Oral cavity normal. Decreased hearing. NECK: JVD not raised. Mass not palpable. RESPIRATORY: Effort normal. LUNGS: Decreased breath sounds. CARDIOVASCULAR: First and second sounds normal. No edema. ABDOMEN: Soft, non-tender. Liver and spleen not palpable. PSYCHIATRY: Awake. Answering questions. INVESTIGATIONS: Potassium 3.9, BUN 12, creatinine 0.6. Accu-Cheks noted. Barium study results noted. ASSESSMENT: 1. Progressive dysphagia with some stricture found on the EGD. Patient did have dilatation yesterday, but this morning again on the barium swallow showing significant stenosis of distal esophagus and may be an element of presbyesophagus. Patient is not able to keep anything down. Will get a GI opinion. Patient may need further dilatation, and if presbyesophagus is a significant component, in that case patient will need a feeding tube. 2. Coronary artery disease with prior history of stent. 3. Diabetes mellitus, type 2, on oral hypoglycemic. 4. Hyperlipidemia. 5. Essential hypertension. 6. Duodenal ulcer with duodenitis. 7. Prostate disorder. 8. Obstructive sleep apnea; does not use CPAP. 9. Peripheral neuropathy secondary to diabetes. 10.Chronic kidney disease, probably stage II, from nephrosclerosis. 11.Acute renal failure component, improved with hydration. PLAN: Care was discussed at length with the patient and . Awaiting GI input. May need a PEG tube. Will add Protonix 40 mg twice a day. MMODL / IJN: [id number] /
[2017-11-16 21:18] LABS: Glucose,Whole Blood 156 mg/dL (75-99)
[2017-11-16] MEDS: LACTATED RINGERS 1,000 ML IV SCH (21:18)
[2017-11-16] MEDS: DONEPEZIL 10 MG TAB PO SCH (21:21)
[2017-11-16] MEDS: PANTOPRAZOLE 40 MG TABLET PO SCH (21:21)
[2017-11-16] MEDS: MONTELUKAST 10 MG TAB PO SCH (21:21)
[2017-11-17] MEDS: SODIUM CHLORIDE 0.9% 1,000 ML IV SCH ×3 (02:04→18:12)
[2017-11-17 07:04] LABS: Glucose,Whole Blood 147 mg/dL (75-99)
[2017-11-17 07:18] LABS: Calcium 8.5 mg/dL (8.4-10.2); Potassium 3.9 mmol/L (3.5-5.1)
[2017-11-17] MEDS: INSULIN ASPART 100 UNIT/ML 1 ML 10 ML VIAL SQ SCH ×3 (07:26→18:44)
[2017-11-17 07:28] VITALS: RESP 16
--- NOTE | 2017-11-17 08:51 | P.PN ---
Progress Note - Text Progress Note Date: 11/16/17 I was notified by the patient's nurse regarding results of his esophagram. Discussion with GI team performed. Patient had passed manometry within one year. Patient may have a hypertensive LES of possible neurological cause. Potential benefits include Botox treatment versus rigid dilators. Will attempt rigid dilation tomorrow.
[2017-11-17] MEDS: METOPROLOL SUCCINATE (ER) 50 MG TAB.ER.24H PO SCH (09:42)
[2017-11-17] MEDS: PANTOPRAZOLE 40 MG TABLET PO SCH ×2 (09:43→18:11)
[2017-11-17] MEDS: ATORVASTATIN 40 MG TAB PO SCH (09:43)
[2017-11-17] MEDS: LINAGLIPTIN 5 MG TABLET PO SCH (09:43)
[2017-11-17] MEDS: MEMANTINE 10 MG TAB PO SCH (09:43)
[2017-11-17] MEDS: CITALOPRAM HYDROBROMIDE 20 MG TAB PO SCH (09:43)
[2017-11-17] MEDS: ISOSORBIDE MONONITRATE ER 30 MG TAB.ER.24H PO SCH (09:43)
--- NOTE | 2017-11-17 10:37 | P.CONS ---
History of Present Illness - Reason for Consult Consult date: 11/17/17 Dysphagia Requesting physician: Jr Fernández - History of Present Illness 77-year-old gentleman history of GERD esophageal stricture admitted with intractable nausea vomiting admitted 4 days ago. Patient states he has had some intermittent dysphagia in the upper esophageal reason "quite sometime" but exacerbated over the last week. Sometimes he coughs chokes with solids and liquids. Reports no history of peptic ulcer disease however EGD report September 2016 indicated patient had tertiary contractions distal esophagus with mild stricture status post 20 mm balloon dilation of distal esophagus. Biopsies negative for H. pylori. He underwent EGD evaluation 11/15/2017 with findings of duodenitis with acute superficial duodenal ulcers second portion and superficial gastric ulcer of the antrum without bleeding and distal esophageal stricture status post balloon dilation 20 mm. Biopsies pending. Post EGD he was still experiencing dysphagia in the upper esophageal region. Barium swallow yesterday reported severe obstruction the level of the distal esophagus with extensive tertiary peristaltic contractions possible presbyesophagus possible spasm. He is currently scheduled for reevaluation/EGD today with general surgery. Denies hematemesis hematochezia melena. No weight loss. No fever or chills. Review of Systems Constitutional: Denies fever, chills, sweats, weight gain, or loss. HEENT: Negative for migraines, blurred vision or loss, earaches, drainage, tinnitus, oral mucosal lesions, dysphagia, or odynophagia. Cardiac: Negative for chest pain, arrhythmias, or palpitation. Respiratory: Negative for shortness of breath, hemoptysis, cough, or sputum production. Gastrointestinal: See HPI for pertinent findings. Genitourinary: Negative for hematuria, urgency, frequency, polyuria, dysuria, or penile discharge. Musculoskeletal: Negative for muscle aches, swelling, arthritis, and arthralgias. Neurologic: Negative for stroke or TIA. Endocrine: Negative for thyroid problems. Skin: Negative for rash or itching. Psychiatric: Negative history for depression and anxietye Past Medical History Past Medical History: Coronary Artery Disease (CAD), Chest Pain / Angina, CVA/ TIA, Diabetes Mellitus, GERD/Reflux, Hyperlipidemia, Hypertension, Myocardial Infarction ([place]), Prostate Disorder, Sleep Apnea/CPAP/BIPAP Additional Past Medical History / Comment(s): NEUROPATHY RADHA FEET, , CELLULITIS LT ANKLE, NEUROPATHY, POOR CIRULATION OF LOWER LEGS. 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; 08/04/15-MRSA MDRO Source:: VRE and MRSA-Left Ankle Past Surgical History: Heart Catheterization With Stent, Joint Replacement Additional Past Surgical History / Comment(s): TOTAL LT HIP, 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, LT FOOT SKIN GRAFT, RADHA CATARACTS, Past Anesthesia/Blood Transfusion Reactions: No Reported Reaction Date of Last Stent Placement:: RE-2009 Type of Cardiac Device: AICD Device Placement Date:: 2011 Past Psychological History: Anxiety, Depression Smoking Status: Former smoker Past Alcohol Use History: None Reported Additional Past Alcohol Use History / Comment(s): STARTED SMOKING AT AGE 16 QUIT 1975 SMOKED 1 PPD Past Drug Use History: None Reported - Past Family History Mother Family Medical History: CVA/TIA Medications and Allergies Home Medications Medication Instructions Recorded Confirmed Type Atorvastatin [Lipitor] 40 mg PO DAILY 10/17/13 11/13/17 History Cinnamon(Unknown) 1,000 mg PO DAILY 10/17/13 11/13/17 History Furosemide [Lasix] 40 mg PO DAILY 10/17/13 11/13/17 History Glimepiride [Amaryl] 2 mg PO DAILY 10/17/13 11/13/17 History Isosorbide Mononitrate [Imdur] 60 mg PO DAILY 10/17/13 11/13/17 History Lisinopril [Zestril] 10 mg PO DAILY 10/17/13 11/13/17 History Spironolactone [Aldactone] 25 mg PO DAILY 10/17/13 11/13/17 History metFORMIN HCL [Glucophage] 1,000 mg PO BID 10/17/13 11/13/17 History Donepezil [Aricept] 10 mg PO HS 08/04/15 11/13/17 History sitaGLIPtin [Januvia] 50 mg PO DAILY 08/04/15 11/13/17 History Memantine HCl [Namenda] 10 mg PO DAILY 09/20/16 11/13/17 History Aspirin EC [Ecotrin Low Dose] 81 mg PO DAILY 11/13/17 11/13/17 History Citalopram Hydrobromide [CeleXA] 20 mg PO DAILY 11/13/17 11/13/17 History Metoprolol Succinate (ER) [Toprol 50 mg PO DAILY 11/13/17 11/13/17 History Xl] Montelukast [Singulair] 10 mg PO HS 11/13/17 11/13/17 History Allergies Allergy/AdvReac Type Severity Reaction Status Date / Time No Known Allergies Allergy Verified 11/13/17 11:38 Physical Exam Vitals: Vital Signs Temp Pulse Resp BP Pulse Ox 11/17/17 07:28 98.1 F 54 L 16 128/66 93 L 11/17/17 02:08 98.2 F 52 L 18 133/68 97 11/16/17 19:31 98.4 F 57 L 16 131/67 95 11/16/17 14:38 98.2 F 62 16 129/69 96 Intake and Output 11/16/17 11/17/17 11/17/17 22:59 06:59 14:59 Intake Total 437.5 1250 Balance 437.5 1250 Intake: Intake, IV Titration 437.5 1250 Amount Sodium Chloride 0.9% 1, 437.5 1250 000 ml @ 125 mls/hr IV . Q8H [facility] Rx#:[id number] Other: Voiding Method Toilet Urinal Diaper # Voids 2 3 # Bowel Movements 1 General appearance: The patient is alert, oriented, in no acute distress. HET: Head is normocephalic and atraumatic. Pupils are equal and reactive. Oropharynx is clear without lesions. Neck: Supple without lymphadenopathy. Trachea midline. Heart: S1 S2. Regular rate and rhythm. Lungs: No crackles or wheezes are heard. Abdomen: Soft, nontender, nondistended with bowel sounds. No peritoneal signs. No palpable organomegaly or masses. Extremities: Normal skin color and turgor. No cyanosis, rash, ulceration, clubbing, or edema. Radial and pedal pulses are 2/4 bilaterally. Neurological: No focal deficits. Strength and sensation are grossly intact. Results CBC & Chem 7: 11/14/17 06:57 11/17/17 06:46 Labs: Abnormal Lab Results - Last 24 Hours (Table) 11/16/17 11/16/17 11/16/17 Range/Units 11:24 17:51 21:16 Chloride (98-107) mmol/L Carbon Dioxide (22-30) mmol/L Glucose (74-99) mg/dL POC Glucose (mg/dL) 148 H 143 H 156 H (75-99) mg/dL 11/17/17 11/17/17 Range/Units 06:46 06:59 Chloride 113 H (98-107) mmol/L Carbon Dioxide 19 L (22-30) mmol/L Glucose 133 H (74-99) mg/dL POC Glucose (mg/dL) 147 H (75-99) mg/dL Assessment and Plan (1) Dysphagia Narrative/Plan: Possible underlying motility disorder Current Visit: Yes Status: Acute Code(s): R13.10 - DYSPHAGIA, UNSPECIFIED SNOMED Code(s): 39439227 (2) Esophageal stricture Current Visit: Yes Status: Acute Code(s): K22.2 - ESOPHAGEAL OBSTRUCTION SNOMED Code(s): 61018537 Plan: 1. Will await results of EGD today with general surgery. Patient may benefit from outpatient manometry study. We'll continue to follow with you. Continue with GI prophylaxis. Thank you for this kind referral and the opportunity to participate in the care of your patient. This consultation was discussed with Dr. Rose. The impression and plan of care have been directed as dictated.
[2017-11-17 11:43] LABS: Glucose,Whole Blood 138 mg/dL (75-99)
[2017-11-17] MEDS ORDERED: IV FLUID CONTINUATION 700 ML IV ONE (13:30)
[2017-11-17] MEDS ORDERED: PROPOFOL 10 MG/ML 20 ML VIAL IV ONE (13:34)
[2017-11-17] MEDS ORDERED: LIDOCAINE 1% INJ 10MG/ML (20 ML MDV) ONE (13:34)
--- NOTE | 2017-11-17 13:58 | P.PCN ---
Date of Procedure: 11/17/17 Description of Procedure: PREOPERATIVE DIAGNOSIS: Esophageal stricture unresponsive to balloon dilation Dysphagia Presbyesophagus POSTOPERATIVE DIAGNOSIS: Esophageal stricture unresponsive to balloon dilation Dysphagia Presbyesophagus Superficial gastritis with bleeding. Duodenitis without bleeding. OPERATION: Esophagogastroduodenoscopy rigid Pakistani dilator 60 Fr SURGEON: Aysha White MD ANESTHESIA: MAC. INDICATIONS: The patient is a 77-year-old male who presents with history of dysphagia despite balloon dilation. She reports epigastric abdominal pain. Upper endoscopy was offered for further diagnostic evaluation and treatment. DESCRIPTION: The patient was brought into the endoscopy suite and laid in the left lateral decubitus position. An Olympus gastroscope was carefully passed along the posterior oropharynx. Ulcerations were found along the posterior oral pharynx. Severe tension was found along the lower esophageal sphincter. No erosions were identified. The stomach was entered with improving gastritis of the stomach. A guidewire was placed through the scope into the stomach. The scope was removed. A 60-Tajik rigid dilator was placed to 60 cm from the incisors. The dilator was left in place between 2-3 minutes. The dilator and guidewire were removed. The scope was reentered along the proximal esophagus whereby the stricture had improved including the hyper tension of the lower esophageal sphincter. The diaphragmatic hiatus was found at 40 cm. The squamocolumnar junction was found at 40 cm from the incisors. No full-thickness injury was found along the mucosa. The stomach was desufflated. The patient tolerated the procedure well. FINDINGS: Acute superficial gastritis with bleeding along the antrum. Active gastritis. Hypertensive lower esophageal sphincter. RECOMMENDATIONS: 1. Outpatient manometry advised. 2. Dysphagia diet recommended 3. Alternatively, medical treatment with nitrates may be of benefit to relax lower esophageal sphincter tone
[2017-11-17 16:53] LABS: Glucose,Whole Blood 122 mg/dL (75-99)
[2017-11-17] MEDS: LACTATED RINGERS 1,000 ML IV SCH (18:13)
--- NOTE | 2017-11-17 18:59 | PN ---
PROGRESS NOTE DATE OF SERVICE: 11/17/2017 PRESENTING COMPLAINT: Difficulty swallowing. INTERVAL HISTORY: This patient has difficulty swallowing, had an EGD initially with dilatation of the esophagus, continued to have symptoms. A barium study showed the patient to have presbyesophagus and again distal constriction. The patient did undergo further dilatation this afternoon after I saw the patient earlier this morning. REVIEW OF SYSTEMS: Done for constitutional, cardiovascular, GI, pulmonary; relevant findings as above. CURRENT MEDICATIONS: Reviewed and include PPIs. EXAMINATION: Temperature 98.1, pulse 54, respirations 16, blood pressure 128/66, pulse ox 93% on room air. GENERAL APPEARANCE: Lying in bed, awake. EYES: Pupils equal. Conjunctivae normal. HEENT: External nose and ears normal. Oral cavity normal. NECK: JVD not raised. Mass not palpable. RESPIRATORY: Effort normal. LUNGS: Decreased breath sounds. CARDIOVASCULAR: First and second sounds normal. No edema. ABDOMEN: Soft, nontender. Liver and spleen not palpable. PSYCHIATRY: Awake, answering questions. INVESTIGATIONS: Potassium 3.9, BUN 10, creatinine 1.04. ASSESSMENT: 1. Progressive dysphagia, status post esophagogastroduodenoscopy. Repeat esophagogastroduodenoscopy scheduled for this afternoon. The patient was found to have possible presbyesophagus and constriction of distal lower esophagus is fixed. 2. Coronary artery disease, prior history of stent. 3. Diabetes mellitus type 2 on oral hypoglycemic. 4. Hyperlipidemia. 5. Essential hypertension. 6. Abdominal ulcer with duodenitis. 7. Prostate disorder. 8. Obstructive sleep apnea, does not use CPAP. 9. Peripheral neuropathy secondary to diabetes. 10.Acute renal failure; prerenal, improved with hydration. 11.Chronic kidney disease, probably stage 2, from nephrosclerosis. PLAN: Care was discussed with the patient. Continue on PPI. The patient this afternoon due for repeat endoscopy with dilatation. Will see how patient does with swallowing element and strict oral intake diet to see how much calorie input he has. If symptoms do not improve, he may need to get a PEG tube in that case. Will see how the patient does today. MMODL / IJN: [id number] /
[2017-11-17] MEDS: MONTELUKAST 10 MG TAB PO SCH (20:52)
[2017-11-17] MEDS: DONEPEZIL 10 MG TAB PO SCH (21:01)
[2017-11-18] MEDS: SODIUM CHLORIDE 0.9% 1,000 ML IV SCH ×3 (03:42→17:40)
[2017-11-18 07:12] LABS: Calcium 8.3 mg/dL (8.4-10.2); Potassium 3.9 mmol/L (3.5-5.1)
[2017-11-18 07:15] LABS: Glucose,Whole Blood 124 mg/dL (75-99)
[2017-11-18] MEDS: INSULIN ASPART 100 UNIT/ML 1 ML 10 ML VIAL SQ SCH ×3 (09:28→17:40)
[2017-11-18] MEDS: ATORVASTATIN 40 MG TAB PO SCH (09:28)
[2017-11-18] MEDS: MEMANTINE 10 MG TAB PO SCH (09:28)
[2017-11-18] MEDS: METOPROLOL SUCCINATE (ER) 50 MG TAB.ER.24H PO SCH (09:28)
[2017-11-18] MEDS: CITALOPRAM HYDROBROMIDE 20 MG TAB PO SCH (09:29)
[2017-11-18] MEDS: ISOSORBIDE MONONITRATE ER 30 MG TAB.ER.24H PO SCH (09:29)
[2017-11-18] MEDS: PANTOPRAZOLE 40 MG TABLET PO SCH ×2 (09:30→17:40)
--- NOTE | 2017-11-18 10:29 | P.PN ---
Subjective Progress Note Date: 11/18/17 Principal diagnosis: Patient still having some episodes of nausea and vomiting with his diet. Denies pain. Ambulating. Objective - Vital Signs Vital signs: Vital Signs Temp 97.0 F L 11/18/17 07:40 Pulse 60 11/18/17 07:40 Resp 16 11/18/17 07:40 BP 151/69 11/18/17 07:40 Pulse Ox 94 L 11/18/17 07:40 Intake & Output 11/17/17 11/18/17 11/18/17 18:59 06:59 18:59 Intake Total 100 1000 Balance 100 1000 Intake: IV 100 Intake, IV Titration 1000 Amount Sodium Chloride 0.9% 1, 1000 000 ml @ 125 mls/hr IV . Q8H [facility] Rx#:[id number] Other: Voiding Method Toilet Urinal Diaper # Voids 2 1 - Exam Abdomen: Soft, nontender, nondistended - Labs CBC & Chem 7: 11/14/17 06:57 11/18/17 06:22 Labs: Abnormal Lab Results - Last 24 Hours (Table) 11/17/17 11/17/17 11/18/17 Range/Units 11:38 16:45 06:22 Chloride 115 H (98-107) mmol/L Carbon Dioxide 18 L (22-30) mmol/L Glucose 112 H (74-99) mg/dL POC Glucose (mg/dL) 138 H 122 H (75-99) mg/dL Calcium 8.3 L (8.4-10.2) mg/dL 11/18/17 Range/Units 07:11 Chloride (98-107) mmol/L Carbon Dioxide (22-30) mmol/L Glucose (74-99) mg/dL POC Glucose (mg/dL) 124 H (75-99) mg/dL Calcium (8.4-10.2) mg/dL Assessment and Plan (1) Dysphagia Narrative/Plan: continue liquid diet. Continue antiacid therapy. Monitor his symptoms overnight. Current Visit: Yes Status: Acute Code(s): R13.10 - DYSPHAGIA, UNSPECIFIED SNOMED Code(s): 19274292
[2017-11-18] MEDS: LINAGLIPTIN 5 MG TABLET PO SCH (10:34)
[2017-11-18 11:40] LABS: Glucose,Whole Blood 211 mg/dL (75-99)
--- NOTE | 2017-11-18 12:27 | PN ---
PROGRESS NOTE DATE OF SERVICE: November 18, 2017 Patient is a 77-year-old pleasant white male admitted to the hospital with progressive dysphagia to liquids and solids for the last 3 months duration. The patient underwent an upper endoscopy by Dr. White 3 days ago and was noted to have a distal esophageal stricture that was dilated with a 20 mm TTS balloon. Subsequently, he continued to have persistent dysphagia and hence a barium esophagram was done that showed complete obstruction of the distal esophagus. He had another upper endoscopy done by Dr. White yesterday with dilation over the guidewire and as per the operative report, he had a very tight lower esophageal sphincter, possibly motility disorder. The patient however this morning feels better. He is able to swallow soft diet reasonably well. He continues to have problems with solids. He reports no chest pain. No heartburn. PHYSICAL EXAMINATION: Appears comfortable in no apparent distress. VITAL SIGNS: Stable. Blood pressure is 129/49, pulse rate 58, temperature 96.9. HEENT examination unremarkable. Conjunctivae pink. Sclerae anicteric. Oral cavity no lesions. Neck no JVD or lymph node enlargement. Chest was clear to auscultation. HEART: Regular rate and rhythm. ABDOMEN: Soft. Bowel sounds are positive. Extremities no pedal edema. Skin no rashes. NEUROLOGIC: Alert and oriented x3. No focal deficits. LABS: The labs from today are within normal limits. IMPRESSION: Progressive dysphagia to solids/intermittent liquids for the last 3 months duration. He had two upper endoscopies in the last 3 days both of which showed questionable distal esophageal stricture, but evidence of a tight lower esophageal sphincter. Most likely, his endoscopic findings are most consistent with esophageal motility disorder at this time. The patient did undergo empiric dilation yesterday with over the wire guided dilators by Dr. White with some improvement in his symptoms today. RECOMMENDATIONS: 1. Advance diet as tolerated. 2. He will need to have esophageal manometry either on Monday if he is in the hospital on outpatient basis to investigate this further and based on that, further recommendations will be made. Thank you for this consultation. MMODL / IJN: [id number] /
[2017-11-18 17:23] LABS: Glucose,Whole Blood 133 mg/dL (75-99)
[2017-11-18] MEDS: LACTATED RINGERS 1,000 ML IV SCH (19:00)
[2017-11-18] MEDS: DONEPEZIL 10 MG TAB PO SCH (19:27)
[2017-11-18] MEDS: MONTELUKAST 10 MG TAB PO SCH (19:27)
--- NOTE | 2017-11-18 22:18 | PN ---
PROGRESS NOTE DATE OF SERVICE: 11/18/2017 PRESENT COMPLAINT: Dysphagia. INTERVAL HISTORY: This patient presented with severe dysphagia, had 2 rounds of lower esophageal dilatation, one with a rigid scope, still bringing up some fluids, but far less than before, able to keep most of it down. is present at the bedside. Had a bowel movement. REVIEW OF SYSTEMS: Done for constitutional, cardiovascular, GI, pulmonary; relevant findings as above. CURRENT MEDICATIONS: Reviewed. EXAMINATION: Temperature 97, pulse 52, respirations 16, blood pressure 150/69, pulse ox 94% on room air. GENERAL: Sitting up, comfortable. EYES: Pupils equal. Conjunctivae normal. HEENT: External nose and ears normal. Oral cavity normal. NECK: JVD not raised. Mass not palpable. RESPIRATORY: Effort normal. LUNGS: Decreased breath sounds. CARDIOVASCULAR: First and second sounds normal. No edema. ABDOMEN: Soft, nontender. Liver and spleen not palpable. PSYCHIATRY: Awake, answering questions appropriately. INVESTIGATIONS: Bicarb 18, BUN 9, creatinine 1.0. ASSESSMENT: 1. Progressive dysphagia, status post dilatation x2. Significant component of presbyesophagus. 2. Lower esophageal obstruction, status post dilatation x2. 3. Coronary artery disease with prior history of stent. 4. Diabetes mellitus type 2 on oral hypoglycemic. 5. Hyperlipidemia. 6. Essential hypertension. 7. Duodenal the duodenal ulcer with duodenitis. 8. Prostate disorder. 9. Obstructive sleep apnea. Does not use CPAP. 10.Peripheral neuropathy secondary to diabetes. 11.Acute renal failure; prerenal, improved with hydration. 12.Chronic kidney stage 2 from nephrosclerosis. PLAN: I talked to the patient and , felt patient could probably go home. Later, Dr. Walters wanted to keep the patient and watch him overnight. MMODL / IJN: [id number] /
[2017-11-19] MEDS: SODIUM CHLORIDE 0.9% 1,000 ML IV SCH ×2 (02:26→13:12)
[2017-11-19 07:01] LABS: Glucose,Whole Blood 158 mg/dL (75-99)
[2017-11-19 08:15] VITALS: BP 159/62; PULSE 50; TEMP 97
[2017-11-19] MEDS: PANTOPRAZOLE 40 MG TABLET PO SCH (08:49)
[2017-11-19] MEDS: METOPROLOL SUCCINATE (ER) 50 MG TAB.ER.24H PO SCH (08:50)
[2017-11-19] MEDS: CITALOPRAM HYDROBROMIDE 20 MG TAB PO SCH (08:50)
[2017-11-19] MEDS: INSULIN ASPART 100 UNIT/ML 1 ML 10 ML VIAL SQ SCH ×2 (08:50→13:05)
[2017-11-19] MEDS: MEMANTINE 10 MG TAB PO SCH (08:51)
[2017-11-19] MEDS: ATORVASTATIN 40 MG TAB PO SCH (08:51)
[2017-11-19] MEDS: ISOSORBIDE MONONITRATE ER 30 MG TAB.ER.24H PO SCH (08:51)
--- NOTE | 2017-11-19 10:05 | P.PN ---
Subjective Progress Note Date: 11/19/17 Principal diagnosis: Patient still having some episodes of nausea and vomiting with his diet. Denies pain. Ambulating. Patient doing better today. Only one small episode of emesis this morning. He is anxious to go home. He believes his swallowing is improved. Objective - Vital Signs Vital signs: Vital Signs Temp 97.0 F L 11/19/17 07:00 Pulse 50 L 11/19/17 07:00 Resp 16 11/19/17 07:00 BP 159/62 11/19/17 07:00 Pulse Ox 95 11/19/17 07:00 Intake & Output 11/18/17 11/19/17 11/19/17 18:59 06:59 18:59 Intake Total 1688 1700 1079 Output Total 100 25 Balance 1588 1700 1054 Intake: Intake, IV Titration 1600 Amount IV Fluid Continuation 700 600 ml @ 0 mls/hr IV .[facility] Rx#:[id number] Sodium Chloride 0.9% 1, 1000 000 ml @ 125 mls/hr IV . Q8H [facility] Rx#:[id number] Oral 1688 1079 Other 100 Output: Emesis 100 25 Other: Voiding Method Toilet Urinal Diaper # Voids 2 3 - Exam Abdomen: Soft, nontender, nondistended - Labs CBC & Chem 7: 11/14/17 06:57 11/18/17 06:22 Labs: Abnormal Lab Results - Last 24 Hours (Table) 11/18/17 11/18/17 11/19/17 Range/Units 11:35 16:51 06:58 POC Glucose (mg/dL) 211 H 133 H 158 H (75-99) mg/dL Assessment and Plan (1) Dysphagia Narrative/Plan: Continue slowly advancing diet from liquids. Follow-up with Dr. Neto pierce. Current Visit: Yes Status: Acute Code(s): R13.10 - DYSPHAGIA, UNSPECIFIED SNOMED Code(s): 14857916
[2017-11-19 11:35] LABS: Glucose,Whole Blood 145 mg/dL (75-99)
[2017-11-19] MEDS: LINAGLIPTIN 5 MG TABLET PO SCH (13:05)
--- NOTE | 2017-11-20 09:23 | DS ---
DISCHARGE SUMMARY DATE OF ADMISSION: 11/13/17. DATE OF DISCHARGE: 11/19/17 FINAL DIAGNOSES: 1. Progressive severe dysphagia, probably from presbyesophagus and increased lower esophageal sphincter tone, present on admission. 2. Coronary artery disease with prior history of stent. 3. Diabetes mellitus type 2 on oral hypoglycemic. 4. Hyperlipidemia. 5. Essential hypertension. 6. Duodenal ulcer with duodenitis, present on admission. 7. Prostate disorder. 8. Obstructive sleep apnea does not use CPAP. 9. Peripheral neuropathy secondary to diabetes. 10.Acute renal failure prerenal from poor oral intake and dehydration. 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 HOSPITAL COURSE: This patient is not able to keep anything down, kept throwing up and losing weight. The patient did undergo EGD by Dr. White. Patient did get a dilatation lower esophageal sphincter. The patient's symptoms still persisted and Dr. White did use a rigid scope for the dilatation and did a barium study that showed tertiary contractions more compatible with presbyesophagus. The patient was doing somewhat better. Better care was discussed with the patient. We will see how the patient will do. The patient will need an outpatient manometry. Patient duodenal ulcer biopsy did come back showing duodenitis. CONSULTATIONS: 1. Dr. White/Dr. Walters from General Surgery. 2. Dr. Bronson Rose from GI. PHYSICAL EXAMINATION: Temperature 97, pulse 50, respiration 18, blood pressure 159/62. CARDIOVASCULAR: First and second sounds normal. PSYCH: Patient able answer simple questions. LUNGS: Decreased breath sounds. INVESTIGATIONS: The patient's creatinine was 1.5 on admission and did drop down to 1.[address] Walters and the patient's discussion and discharge planning more than 35 minutes. DISCHARGE MEDICATIONS: 1. Lipitor 40 mg a day. 2. Imdur 60 mg a day. 3. Zestril 10 mg a day. 4. Aricept 10 mg q.h.s. 5. Januvia 50 mg a day. 6. Namenda 10 mg a day. 7. Aspirin 81 mg a day. 8. Celexa 20 mg a day. 9. Toprol-XL 50 mg a day. 10.Singulair 10 mg q.h.s. 11.Protonix 40 mg b.i.d. 12.Glucophage 500 mg p.o. b.i.d. 13.Discontinued Lasix, Aldactone, Amaryl. Follow with Dr. Jalloh in 2 days. Follow up with Dr. White on 11/21/17. Follow with Dr. Bronson Rose in one week. DIET: Pureed and advance as tolerated. MMODL / IJN: [id number] /
== END 2017-11-19 15:15 | disposition home or self-care (01) | DRG 391 ==
LOC: EC 10:56 → 3SUR 14:23 → INTOOBSV 14:23 → OBSVTOIN 11-17 10:29
PROVIDERS: ADMIT Hospitalist; ATTEND Hospitalist
PROC: 0DB78ZX Excision of Stomach, Pylorus, Via Natural or Artificial Opening Endoscopic, Diagnostic (ICD-10-PCS; 2017-11-15)
PROC: 0D738ZZ Dilation of Lower Esophagus, Via Natural or Artificial Opening Endoscopic (ICD-10-PCS; principal; 2017-11-15 13:15)
PROC: 0DB98ZX Excision of Duodenum, Via Natural or Artificial Opening Endoscopic, Diagnostic (ICD-10-PCS; 2017-11-15 13:15)
PROC: 0D738ZZ Dilation of Lower Esophagus, Via Natural or Artificial Opening Endoscopic (ICD-10-PCS; 2017-11-17)
DX: K22.8 Other specified diseases of esophagus (principal); K29.01 Acute gastritis with bleeding; K26.3 Acute duodenal ulcer without hemorrhage or perforation; K25.3 Acute gastric ulcer without hemorrhage or perforation; N17.9 Acute kidney failure, unspecified; K22.4 Dyskinesia of esophagus; E11.22 Type 2 diabetes mellitus with diabetic chronic kidney disease; E11.42 Type 2 diabetes mellitus with diabetic polyneuropathy; E78.5 Hyperlipidemia, unspecified; E86.0 Dehydration; G47.33 Obstructive sleep apnea (adult) (pediatric); I12.9 Hypertensive chronic kidney disease with stage 1 through stage 4 chronic kidney disease, or unspecified chronic kidney disease; I25.10 Atherosclerotic heart disease of native coronary artery without angina pectoris; I25.2 Old myocardial infarction; K21.9 Gastro-esophageal reflux disease without esophagitis; K22.2 Esophageal obstruction; K29.80 Duodenitis without bleeding; K52.9 Noninfective gastroenteritis and colitis, unspecified; N18.2 Chronic kidney disease, stage 2 (mild); N42.9 Disorder of prostate, unspecified; F32.9 Major depressive disorder, single episode, unspecified; F41.9 Anxiety disorder, unspecified; M15.9 Polyosteoarthritis, unspecified; G20 Parkinson's disease; F02.80 Dementia in other diseases classified elsewhere, unspecified severity, without behavioral disturbance, psychotic disturbance, mood disturbance, and anxiety; Z79.82 Long term (current) use of aspirin; Z79.84 Long term (current) use of oral hypoglycemic drugs; Z79.899 Other long term (current) drug therapy; Z95.5 Presence of coronary angioplasty implant and graft; Z87.891 Personal history of nicotine dependence; Z86.73 Personal history of transient ischemic attack (TIA), and cerebral infarction without residual deficits; Z86.14 Personal history of Methicillin resistant Staphylococcus aureus infection; Z96.642 Presence of left artificial hip joint; Z89.411 Acquired absence of right great toe; Z89.421 Acquired absence of other right toe(s); Z95.810 Presence of automatic (implantable) cardiac defibrillator; Z98.42 Cataract extraction status, left eye; Z98.41 Cataract extraction status, right eye; Z96.1 Presence of intraocular lens; Z82.3 Family history of stroke
CPT/HCPCS: 36415; 43239; 43249; 74018; 74220; 76770; 80048; 80053; 81001; 82150; 83690; 85025; 88305; 96361; 96374; 99285

== ENCOUNTER 2017-12-06 07:02 | Day surgery (SDC) | payer MEDICARE, BC ==
[2017-12-04 09:38] VITALS: BMI 37.3
[2017-12-06 07:34] VITALS: RESP 16; TEMP 97.4
--- NOTE | 2017-12-06 07:39 | P.GSHP ---
History of Present Illness H&P Date: 12/06/17 CHIEF COMPLAINT: GERD HISTORY OF PRESENT ILLNESS: The patient is a 77-year-old male who presents reports gastroesophageal reflux disease. Upper endoscopy was offered for further evaluation and management. PAST MEDICAL HISTORY: Please see list. PAST SURGICAL HISTORY: Please see list. MEDICATIONS: Please see list. ALLERGIES: Please see list. SOCIAL HISTORY: No illicit drug use FAMILY HISTORY: No reports of Crohn disease or ulcerative colitis. REVIEW OF ORGAN SYSTEMS: CONSTITUTIONAL: No reports of fevers or chills. GI: Denies any blood in stools or constipation. PHYSICAL EXAM: VITAL SIGNS: Stable GENERAL: Well-developed and pleasant in no acute distress. HEENT: No scleral icterus. Extraocular movements grossly intact. Moist buccal mucosa. NECK: Supple without lymphadenopathy. CHEST: Unlabored respirations. Equal bilateral excursions. CARDIOVASCULAR: Regular rate and rhythm. Distal 2+ pulses. ABDOMEN: Soft, nondistended. MUSCULOSKELETAL: No clubbing, cyanosis, or edema. ASSESSMENT: 1. Gastroesophageal reflux disease PLAN: 1. Recommend proceeding with an upper endoscopy Past Medical History Past Medical History: Coronary Artery Disease (CAD), Chest Pain / Angina, CVA/ TIA, Diabetes Mellitus, GERD/Reflux, Hyperlipidemia, Hypertension, Memory Impairment, Myocardial Infarction ([place]), Prostate Disorder, Sleep Apnea/CPAP/ BIPAP Additional Past Medical History / Comment(s): NEUROPATHY RADHA FEET, , CELLULITIS LT ANKLE AND WEEPING FROM RT SEAMAN AREA, EDEMA TO BLE, POOR CIRULATION OF LOWER LEGS "INFECTION OF ESOPHAGUS" DIFFICULTY SWALLOWING AT TIMES , RECENT OBV FOR N/ V Last Myocardial Infarction Date:: 2012 History of Any Multi-Drug Resistant Organisms: MRSA, VRE Date of last positivie culture/infection: 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; 08/04/15-MRSA MDRO Source:: VRE and MRSA-Left Ankle Past Surgical History: AICD, Heart Catheterization With Stent, Joint Replacement Additional Past Surgical History / Comment(s): TOTAL LT HIP, 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, LT FOOT SKIN GRAFT, RADHA CATARACTS, EGD, Past Anesthesia/Blood Transfusion Reactions: No Reported Reaction Date of Last Stent Placement:: RE-2009 Type of Cardiac Device: AICD Device Placement Date:: 2011 Smoking Status: Former smoker - Past Family History Mother Family Medical History: CVA/TIA Medications and Allergies Home Medications Medication Instructions Recorded Confirmed Type Atorvastatin [Lipitor] 40 mg PO DAILY 10/17/13 12/04/17 History Cinnamon(Unknown) 1,000 mg PO DAILY 10/17/13 12/04/17 History Isosorbide Mononitrate [Imdur] 60 mg PO DAILY 10/17/13 12/04/17 History Lisinopril [Zestril] 10 mg PO DAILY 10/17/13 12/04/17 History Donepezil [Aricept] 10 mg PO HS 08/04/15 12/04/17 History sitaGLIPtin [Januvia] 50 mg PO DAILY 08/04/15 12/04/17 History Memantine HCl [Namenda] 10 mg PO DAILY 09/20/16 12/04/17 History Aspirin EC [Ecotrin Low Dose] 81 mg PO DAILY 11/13/17 12/04/17 History Citalopram Hydrobromide [CeleXA] 20 mg PO DAILY 11/13/17 12/04/17 History Metoprolol Succinate (ER) [Toprol 50 mg PO DAILY 11/13/17 12/04/17 History XL] Montelukast [Singulair] 10 mg PO HS 11/13/17 12/04/17 History Pantoprazole [Protonix] 40 mg PO AC-BID #60 tablet.dr 11/18/17 12/04/17 Rx metFORMIN HCL [Glucophage] 500 mg PO BID #0 11/18/17 12/04/17 Rx Furosemide [Lasix] 20 mg PO DAILY 12/04/17 12/04/17 History Allergies Allergy/AdvReac Type Severity Reaction Status Date / Time No Known Allergies Allergy Verified 12/06/17 07:34 Surgical - Exam Vital Signs Temp Pulse Resp BP Pulse Ox 97.4 F L 50 L 16 155/64 96 12/06/17 07:33 12/06/17 07:33 12/06/17 07:33 12/06/17 07:33 12/06/17 07:33
[2017-12-06 07:54] LABS: Glucose,Whole Blood 172 mg/dL (75-99)
[2017-12-06] MEDS ORDERED: PROPOFOL 10 MG/ML 20 ML VIAL IV ONE (07:55)
[2017-12-06] MEDS ORDERED: LIDOCAINE 1% INJ 10MG/ML (20 ML MDV) ONE (07:55)
--- NOTE | 2017-12-06 08:16 | P.PCN ---
Date of Procedure: 12/06/17 Description of Procedure: PREOPERATIVE DIAGNOSIS: Dysphagia Presbyesophagus Duodenitis without bleeding. POSTOPERATIVE DIAGNOSIS: Dysphagia Presbyesophagus Duodenitis without bleeding. OPERATION: Esophagogastroduodenoscopy rigid Nigerien dilator 60 Fr SURGEON: Aysha White MD ANESTHESIA: MAC. INDICATIONS: The patient is a 77-year-old male who presents with history of dysphagia despite balloon dilation. Upper endoscopy was offered for further diagnostic evaluation and treatment. Informed consent was obtained DESCRIPTION: The patient was brought into the endoscopy suite and laid in the left lateral decubitus position. An Olympus gastroscope was carefully passed along the posterior oropharynx. The stomach was entered with improving gastritis of the stomach. A guidewire was placed through the scope into the stomach. The scope was removed. A 60-Thai rigid dilator was placed to 50 cm from the incisors. The dilator was left in place for 1 minutes. The dilator and guidewire were removed. The scope was reentered along the stomach whereby the stricture had improved including the hypertension of the lower esophageal sphincter. The diaphragmatic hiatus was found at 40 cm. The squamocolumnar junction was found at 40 cm from the incisors. No full-thickness injury was found along the mucosa. The stomach was desufflated. The patient tolerated the procedure well. FINDINGS: Superficial duodenitis Hypertensive lower esophageal sphincter Tertiary esophageal contractions RECOMMENDATIONS: 1. Upper endoscopy as needed Plan - Discharge Summary New Discharge Prescriptions: No Action Lisinopril [Zestril] 10 mg PO DAILY Isosorbide Mononitrate [Imdur] 60 mg PO DAILY Cinnamon(Unknown) 1,000 mg PO DAILY Atorvastatin [Lipitor] 40 mg PO DAILY sitaGLIPtin [Januvia] 50 mg PO DAILY Donepezil [Aricept] 10 mg PO HS Memantine HCl [Namenda] 10 mg PO DAILY Montelukast [Singulair] 10 mg PO HS Metoprolol Succinate (ER) [Toprol XL] 50 mg PO DAILY Citalopram Hydrobromide [CeleXA] 20 mg PO DAILY Aspirin EC [Ecotrin Low Dose] 81 mg PO DAILY Pantoprazole [Protonix] 40 mg PO AC-BID #60 tablet. metFORMIN HCL [Glucophage] 500 mg PO BID #0 Furosemide [Lasix] 20 mg PO DAILY Discharge Medication List Atorvastatin [Lipitor] 40 mg PO DAILY 07/03/14 [History] Cinnamon(Unknown) 1,000 mg PO DAILY 10/17/13 [History] Isosorbide Mononitrate [Imdur] 60 mg PO DAILY 10/17/13 [History] Lisinopril [Zestril] 10 mg PO DAILY 10/17/13 [History] Donepezil [Aricept] 10 mg PO HS 08/04/15 [History] sitaGLIPtin [Januvia] 50 mg PO DAILY 08/04/15 [History] Memantine HCl [Namenda] 10 mg PO DAILY 09/20/16 [History] Aspirin EC [Ecotrin Low Dose] 81 mg PO DAILY 11/13/17 [History] Citalopram Hydrobromide [CeleXA] 20 mg PO DAILY 11/13/17 [History] Metoprolol Succinate (ER) [Toprol XL] 50 mg PO DAILY 11/13/17 [History] Montelukast [Singulair] 10 mg PO HS 11/13/17 [History] Pantoprazole [Protonix] 40 mg PO AC-BID #60 tablet. 11/18/17 [Rx] metFORMIN HCL [Glucophage] 500 mg PO BID #0 11/18/17 [Rx] Furosemide [Lasix] 20 mg PO DAILY 12/04/17 [History]
[2017-12-06 08:30] VITALS: PULSE 50
[2017-12-06 08:44] VITALS: BP 158/71
== END 2017-12-06 08:55 | disposition home or self-care (01) ==
LOC: ORWHC2ENDO 07:02
PROVIDERS: ATTEND Surgery Plastic and Reconstructive Surgery
DX: K21.9 Gastro-esophageal reflux disease without esophagitis (principal); I25.10 Atherosclerotic heart disease of native coronary artery without angina pectoris; E11.9 Type 2 diabetes mellitus without complications; I25.2 Old myocardial infarction; I10 Essential (primary) hypertension; E78.5 Hyperlipidemia, unspecified; K29.80 Duodenitis without bleeding; Z87.891 Personal history of nicotine dependence; Z79.82 Long term (current) use of aspirin; Z95.5 Presence of coronary angioplasty implant and graft; Z86.14 Personal history of Methicillin resistant Staphylococcus aureus infection; Z95.810 Presence of automatic (implantable) cardiac defibrillator; Z86.73 Personal history of transient ischemic attack (TIA), and cerebral infarction without residual deficits
CPT/HCPCS: 43245; J2001; J2704; 43249

== ENCOUNTER 2018-02-12 12:22 | Emergency (ER) | payer MEDICARE, BC ==
[2018-02-12 12:46] VITALS: RESP 18
[2018-02-12 14:30] VITALS: BP 126/63; PULSE 50; TEMP 97.8
--- NOTE | 2018-02-12 14:34 | ED ---
General Adult HPI - General Chief complaint: Extremity Problem,Nontraumatic Stated complaint: Left Ankle infection Time Seen by Provider: 02/12/18 14:19 Source: patient, RN notes reviewed, old records reviewed Mode of arrival: wheelchair Limitations: no limitations - History of Present Illness Initial comments: 77 -year-old male presenting for wound evaluation on the left foot. Patient was seen by in-house physician, noted to have some erythema to the left lateral ankle. Patient has long-standing history of chronic wounds on both feet. He is a diabetic and has peripheral vascular disease. Patient denies any warmth or erythema that he noted. He has some chronic venous stasis and skin breakdown but nothing that is out of ordinary for him. He was instructed to present to the emergency department for evaluation. Patient has no complaints. No pain in this location. No pain in either calf or feet. No fever or chills. He's been eating and drinking normally. - Related Data Home Medications Medication Instructions Recorded Confirmed Atorvastatin [Lipitor] 40 mg PO DAILY 10/17/13 12/04/17 Cinnamon(Unknown) 1,000 mg PO DAILY 10/17/13 12/04/17 Isosorbide Mononitrate [Imdur] 60 mg PO DAILY 10/17/13 12/04/17 Lisinopril [Zestril] 10 mg PO DAILY 10/17/13 12/04/17 Donepezil [Aricept] 10 mg PO HS 08/04/15 12/04/17 sitaGLIPtin [Januvia] 50 mg PO DAILY 08/04/15 12/04/17 Memantine HCl [Namenda] 10 mg PO DAILY 09/20/16 12/04/17 Aspirin EC [Ecotrin Low Dose] 81 mg PO DAILY 11/13/17 12/04/17 Citalopram Hydrobromide [CeleXA] 20 mg PO DAILY 11/13/17 12/04/17 Metoprolol Succinate (ER) [Toprol 50 mg PO DAILY 11/13/17 12/04/17 XL] Montelukast [Singulair] 10 mg PO HS 11/13/17 12/04/17 Furosemide [Lasix] 20 mg PO DAILY 12/04/17 12/04/17 Previous Rx's Medication Instructions Recorded Pantoprazole [Protonix] 40 mg PO AC-BID #60 tablet. 11/18/17 metFORMIN HCL [Glucophage] 500 mg PO BID #0 11/18/17 Cephalexin [Keflex] 500 mg PO Q8HR #21 cap 02/12/18 Mupirocin 2% Oint [Bactroban 2% 1 applic TOPICAL TID #60 gm 02/12/18 Oint] Allergies Allergy/AdvReac Type Severity Reaction Status Date / Time No Known Allergies Allergy Verified 02/12/18 12:46 Review of Systems ROS Statement: Those systems with pertinent positive or pertinent negative responses have been documented in the HPI. ROS Other: All systems not noted in ROS Statement are negative. Past Medical History Past Medical History: Coronary Artery Disease (CAD), Chest Pain / Angina, CVA/ TIA, Diabetes Mellitus, GERD/Reflux, Hyperlipidemia, Hypertension, Memory Impairment, Myocardial Infarction ([place]), Prostate Disorder, Sleep Apnea/CPAP/ BIPAP Additional Past Medical History / Comment(s): NEUROPATHY RADHA FEET, , CELLULITIS LT ANKLE AND WEEPING FROM RT SEAMAN AREA, EDEMA TO BLE, POOR CIRULATION OF LOWER LEGS "INFECTION OF ESOPHAGUS" DIFFICULTY SWALLOWING AT TIMES , RECENT OBV FOR N/ V Last Myocardial Infarction Date:: 2012 History of Any Multi-Drug Resistant Organisms: MRSA, VRE Date of last positivie culture/infection: 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; 08/04/15-MRSA MDRO Source:: VRE and MRSA-Left Ankle Past Surgical History: AICD, Heart Catheterization With Stent, Joint Replacement Additional Past Surgical History / Comment(s): TOTAL LT HIP, 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, LT FOOT SKIN GRAFT, RADHA CATARACTS, EGD, Past Anesthesia/Blood Transfusion Reactions: No Reported Reaction Date of Last Stent Placement:: UNSURE-2009 Type of Cardiac Device: AICD Device Placement Date:: 2011 Past Psychological History: Anxiety, Depression Smoking Status: Former smoker - Past Family History Mother Family Medical History: CVA/TIA General Exam Limitations: no limitations General appearance: alert, in no apparent distress Head exam: Present: atraumatic, normocephalic Eye exam: Present: normal appearance, PERRL ENT exam: Present: normal exam Neck exam: Present: normal inspection. Absent: tenderness, meningismus Respiratory exam: Present: normal lung sounds bilaterally. Absent: respiratory distress, wheezes Cardiovascular Exam: Present: regular rate, normal rhythm GI/Abdominal exam: Present: soft. Absent: distended, tenderness, guarding Extremities exam: Present: pedal edema, other (Left lateral ankle has some yellow crusting and minimal erythema. No induration. No crepitus. No tenderness to palpation. Range of motion at the ankle is normal. Patient has Doppler signal in the foot bilaterally.) Neurological exam: Present: alert, oriented X3 Psychiatric exam: Present: normal affect, normal mood Course Vital Signs 02/12/18 12:42 Temperature 97.9 F Pulse Rate 55 L Respiratory 18 Rate Blood Pressure 122/52 O2 Sat by Pulse 97 Oximetry Medical Decision Making - Medical Decision Making 77-year-old male presenting with minor skin breakdown and yellow crusting on the left lateral ankle. There is no signs of significant infection possibly some mild cellulitis and impetigo. Patient will be started on Keflex and mupirocin ointment. He is afebrile and otherwise well-appearing. Disposition Clinical Impression: Impetigo, Cellulitis Disposition: HOME SELF-CARE Condition: Good Instructions: Impetigo (ED), Cellulitis (ED) Prescriptions: Cephalexin [Keflex] 500 mg PO Q8HR #21 cap Mupirocin 2% Oint [Bactroban 2% Oint] 1 applic TOPICAL TID #60 gm Is patient prescribed a controlled substance at d/c from ED?: No Referrals: Cas Madden MD [Primary Care Provider] - 1-2 days Time of Disposition: 14:32
== END 2018-02-12 15:10 | disposition home or self-care (01) ==
LOC: EC 12:22
DX: L03.116 Cellulitis of left lower limb (principal); L01.00 Impetigo, unspecified; I25.119 Atherosclerotic heart disease of native coronary artery with unspecified angina pectoris; E11.40 Type 2 diabetes mellitus with diabetic neuropathy, unspecified; E78.5 Hyperlipidemia, unspecified; I10 Essential (primary) hypertension; I25.2 Old myocardial infarction; G47.30 Sleep apnea, unspecified; Z99.89 Dependence on other enabling machines and devices; F32.9 Major depressive disorder, single episode, unspecified; F41.9 Anxiety disorder, unspecified; Z86.14 Personal history of Methicillin resistant Staphylococcus aureus infection; Z86.73 Personal history of transient ischemic attack (TIA), and cerebral infarction without residual deficits; Z87.891 Personal history of nicotine dependence; Z79.84 Long term (current) use of oral hypoglycemic drugs; Z79.82 Long term (current) use of aspirin; Z79.899 Other long term (current) drug therapy; Z96.642 Presence of left artificial hip joint; Z95.5 Presence of coronary angioplasty implant and graft; Z95.810 Presence of automatic (implantable) cardiac defibrillator
CPT/HCPCS: 99283

== ENCOUNTER 2018-03-03 01:20 | Observation (INO) | payer MEDICARE, BC ==
[2018-03-03] MEDS ORDERED: SODIUM CHLORIDE 0.9% 1,000 ML IV STA (01:45)
--- NOTE | 2018-03-03 01:46 | ED ---
Dizziness HPI - General Chief Complaint: Dizziness Stated Complaint: Dizziness Time Seen by Provider: 03/03/18 01:21 Source: EMS, RN notes reviewed, old records reviewed Mode of arrival: EMS Limitations: altered mental status - History of Present Illness Initial Comments: This is a 77-year-old male the ER for evasive syncopal event. Patient per patient's patient became very ashen watson and unresponsive prior to arrival. All days and waning of dizziness weakness lightheadedness and vertiginous type symptoms with room spinning and inability to ambulate. Patient denies any recent medication changes denies headache or chest pain MD Complaint: dizziness -: hour(s) Timing: sudden onset Description: sense of movement, "room spinning", lightheadedness History of Same: Yes History of Trauma: Yes Severity: mild Improves With: nothing Worsens With: nothing Associated Symptoms: syncope - Related Data Home Medications Medication Instructions Recorded Confirmed Atorvastatin [Lipitor] 40 mg PO DAILY 10/17/13 02/12/18 Isosorbide Mononitrate [Imdur] 60 mg PO DAILY 10/17/13 02/12/18 Lisinopril [Zestril] 10 mg PO DAILY 10/17/13 02/12/18 Donepezil [Aricept] 10 mg PO HS 08/04/15 02/12/18 sitaGLIPtin [Januvia] 50 mg PO DAILY 08/04/15 02/12/18 Memantine HCl [Namenda] 10 mg PO DAILY 09/20/16 02/12/18 Aspirin EC [Ecotrin Low Dose] 81 mg PO DAILY 11/13/17 02/12/18 Citalopram Hydrobromide [CeleXA] 20 mg PO DAILY 11/13/17 02/12/18 Metoprolol Succinate (ER) [Toprol 50 mg PO DAILY 11/13/17 02/12/18 XL] Furosemide [Lasix] 40 mg PO DAILY 12/04/17 02/12/18 Cinnamon Bark [Cinnamon] 1,000 mg PO DAILY 02/12/18 02/12/18 metFORMIN HCL 1,000 mg PO AC-BID 02/12/18 02/12/18 Previous Rx's Medication Instructions Recorded Cephalexin [Keflex] 500 mg PO Q8HR #21 cap 02/12/18 Allergies Allergy/AdvReac Type Severity Reaction Status Date / Time No Known Allergies Allergy Verified 03/03/18 01:40 Review of Systems ROS Statement: Those systems with pertinent positive or pertinent negative responses have been documented in the HPI. ROS Other: All systems not noted in ROS Statement are negative. Past Medical History Past Medical History: Coronary Artery Disease (CAD), Chest Pain / Angina, CVA/ TIA, Dementia, Diabetes Mellitus, GERD/Reflux, Hyperlipidemia, Hypertension, Memory Impairment, Myocardial Infarction ([place]), Prostate Disorder, Sleep Apnea/ CPAP/BIPAP Additional Past Medical History / Comment(s): NEUROPATHY RADHA FEET, , CELLULITIS LT ANKLE AND WEEPING FROM RT SEAMAN AREA, EDEMA TO BLE, POOR CIRULATION OF LOWER LEGS "INFECTION OF ESOPHAGUS" DIFFICULTY SWALLOWING AT TIMES , RECENT OBV FOR N/ V Last Myocardial Infarction Date:: 2012 History of Any Multi-Drug Resistant Organisms: MRSA, VRE Date of last positivie culture/infection: 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; 08/04/15-MRSA MDRO Source:: VRE and MRSA-Left Ankle Past Surgical History: AICD, Heart Catheterization With Stent, Joint Replacement Additional Past Surgical History / Comment(s): TOTAL LT HIP, 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, LT FOOT SKIN GRAFT, RADHA CATARACTS, EGD, Past Anesthesia/Blood Transfusion Reactions: No Reported Reaction Date of Last Stent Placement:: RE-2009 Type of Cardiac Device: AICD Device Placement Date:: 2011 Past Psychological History: Anxiety, Depression Smoking Status: Former smoker Past Alcohol Use History: None Reported Past Drug Use History: None Reported - Past Family History Mother Family Medical History: CVA/TIA General Exam Limitations: altered mental status General appearance: alert, in no apparent distress Head exam: Present: atraumatic, normocephalic, normal inspection Eye exam: Present: normal appearance, PERRL, EOMI. Absent: scleral icterus, conjunctival injection, periorbital swelling ENT exam: Present: normal exam, mucous membranes moist Neck exam: Present: normal inspection. Absent: tenderness, meningismus, lymphadenopathy Respiratory exam: Present: normal lung sounds bilaterally. Absent: respiratory distress, wheezes, rales, rhonchi, stridor Cardiovascular Exam: Present: normal rhythm, bradycardia, normal heart sounds. Absent: systolic murmur, diastolic murmur, rubs, gallop, clicks GI/Abdominal exam: Present: soft, normal bowel sounds. Absent: distended, tenderness, guarding, rebound, rigid Extremities exam: Present: normal inspection, full ROM, normal capillary refill. Absent: tenderness, pedal edema, joint swelling, calf tenderness Back exam: Present: normal inspection Neurological exam: Present: alert, oriented X3, CN II-XII intact Psychiatric exam: Present: normal affect, normal mood Skin exam: Present: warm, dry, intact, normal color. Absent: rash Course Vital Signs 03/03/18 03/03/18 03/03/18 01:28 01:41 01:50 Temperature 97.9 F Pulse Rate 58 L 56 L 51 L Respiratory 18 8 L 17 Rate Blood Pressure 137/65 120/56 O2 Sat by Pulse 98 92 L 98 Oximetry 03/03/18 03/03/18 02:30 02:40 Temperature Pulse Rate 51 L 49 L Respiratory 16 6 L Rate Blood Pressure 114/46 108/72 O2 Sat by Pulse 97 93 L Oximetry - Reevaluation(s) Reevaluation #1: 03/03/18 04:21 Medical record is reviewed Reevaluation #2: 03/03/18 04:21 Patient remains weak lightheaded dizzy and not feeling well EKG Findings - EKG Comments: EKG Findings:: EKG shows paces rhythm of 52 ID 160 QRS 152 QTc 515 Medical Decision Making - Medical Decision Making 77 male the ER for dizziness and vertigo, bradycardic here in the emergency room with blood pressure lower than normal. Patient does feel weak, will admit for cardiology evaluation. Pacemaker interrogation - Lab Data Result diagrams: 03/03/18 01:25 03/03/18 01:25 Lab Results 03/03/18 03/03/18 03/03/18 Range/Units 01:25 01:25 01:25 WBC 10.8 H (3.8-10.6) k/uL RBC 3.08 L (4.30-5.90) m/uL Hgb 9.8 L (13.0-17.5) gm/dL Hct 28.1 L (39.0-53.0) % MCV 91.4 (80.0-100.0) fL MCH 31.7 (25.0-35.0) pg MCHC 34.7 (31.0-37.0) g/dL RDW 15.8 H (11.5-15.5) % Plt Count 135 L (150-450) k/uL Neutrophils % 85 % Lymphocytes % 8 % Monocytes % 4 % Eosinophils % 2 % Basophils % 0 % Neutrophils # 9.2 H (1.3-7.7) k/uL Lymphocytes # 0.9 L (1.0-4.8) k/uL Monocytes # 0.4 (0-1.0) k/uL Eosinophils # 0.2 (0-0.7) k/uL Basophils # 0.0 (0-0.2) k/uL PT (9.0-12.0) sec INR (<1.2) APTT (22.0-30.0) sec Sodium 133 L (137-145) mmol/L Potassium 4.9 (3.5-5.1) mmol/L Chloride 102 (98-107) mmol/L Carbon Dioxide 23 (22-30) mmol/L Anion Gap 8 mmol/L BUN 34 H (9-20) mg/dL Creatinine 1.23 (0.66-1.25) mg/dL Est GFR (CKD-EPI)AfAm 65 (>60 ml/min/1.73 sqM) Est GFR (CKD-EPI)NonAf 57 (>60 ml/min/1.73 sqM) Glucose 213 H (74-99) mg/dL Calcium 9.2 (8.4-10.2) mg/dL Phosphorus 3.8 (2.5-4.5) mg/dL Magnesium 1.8 (1.6-2.3) mg/dL Total Bilirubin 0.5 (0.2-1.3) mg/dL AST 21 (17-59) U/L ALT 29 (21-72) U/L Alkaline Phosphatase 100 (38-126) U/L Total Creatine Kinase <20 L (55-170) U/L CK-MB (CK-2) 0.3 (0.0-2.4) ng/mL CK-MB (CK-2) Rel Index Troponin I <0.012 (0.000-0.034) ng/mL Total Protein 6.6 (6.3-8.2) g/dL Albumin 3.6 (3.5-5.0) g/dL TSH 1.440 (0.465-4.680) mIU/L 03/03/18 Range/Units 01:25 WBC (3.8-10.6) k/uL RBC (4.30-5.90) m/uL Hgb (13.0-17.5) gm/dL Hct (39.0-53.0) % MCV (80.0-100.0) fL MCH (25.0-35.0) pg MCHC (31.0-37.0) g/dL RDW (11.5-15.5) % Plt Count (150-450) k/uL Neutrophils % % Lymphocytes % % Monocytes % % Eosinophils % % Basophils % % Neutrophils # (1.3-7.7) k/uL Lymphocytes # (1.0-4.8) k/uL Monocytes # (0-1.0) k/uL Eosinophils # (0-0.7) k/uL Basophils # (0-0.2) k/uL PT 10.2 (9.0-12.0) sec INR 1.0 (<1.2) APTT 22.2 (22.0-30.0) sec Sodium (137-145) mmol/L Potassium (3.5-5.1) mmol/L Chloride (98-107) mmol/L Carbon Dioxide (22-30) mmol/L Anion Gap mmol/L BUN (9-20) mg/dL Creatinine (0.66-1.25) mg/dL Est GFR (CKD-EPI)AfAm (>60 ml/min/1.73 sqM) Est GFR (CKD-EPI)NonAf (>60 ml/min/1.73 sqM) Glucose (74-99) mg/dL Calcium (8.4-10.2) mg/dL Phosphorus (2.5-4.5) mg/dL Magnesium (1.6-2.3) mg/dL Total Bilirubin (0.2-1.3) mg/dL AST (17-59) U/L ALT (21-72) U/L Alkaline Phosphatase (38-126) U/L Total Creatine Kinase (55-170) U/L CK-MB (CK-2) (0.0-2.4) ng/mL CK-MB (CK-2) Rel Index Troponin I (0.000-0.034) ng/mL Total Protein (6.3-8.2) g/dL Albumin (3.5-5.0) g/dL TSH (0.465-4.680) mIU/L - Radiology Data Radiology results: report reviewed (Chest x-rays negative for acute disease), image reviewed Disposition Clinical Impression: Vertigo, Weakness, Syncope, Bradycardia Disposition: ADMITTED IP TO THIS [facility] Condition: Fair Is patient prescribed a controlled substance at d/c from ED?: No Referrals: Cas Madden MD [Primary Care Provider] - 1-2 days
[2018-03-03 02:24] LABS: Basophils % (A) 0 %; Eosinophils # (A) 0.2 k/uL (0-0.7); Eosinophils % (A) 2 %; HCT 28.1 % (39.0-53.0); HGB 9.8 gm/dL (13.0-17.5); Lymphocytes # (A) 0.9 k/uL (1.0-4.8); Lymphocytes % (A) 8 %; MCH 31.7 pg (25.0-35.0); MCHC 34.7 g/dL (31.0-37.0); MCV 91.4 fL (80.0-100.0); Mean Platelet Volume 8.2; Monocytes # (A) 0.4 k/uL (0-1.0); Monocytes % (A) 4 %; Neutrophils # (A) 9.2 k/uL (1.3-7.7); Neutrophils % (A) 85 %; Platelet Count 135 k/uL (150-450); RBC 3.08 m/uL (4.30-5.90); RDW 15.8 % (11.5-15.5); WBC 10.8 k/uL (3.8-10.6)
[2018-03-03 02:37] LABS: Albumin 3.6 g/dL (3.5-5.0); Calcium 9.2 mg/dL (8.4-10.2); Magnesium 1.8 mg/dL (1.6-2.3); Phosphorus 3.8 mg/dL (2.5-4.5); Potassium 4.9 mmol/L (3.5-5.1); Total Bilirubin 0.5 mg/dL (0.2-1.3); Total Protein 6.6 g/dL (6.3-8.2)
[2018-03-03 02:44] LABS: Partial Thromboplastin Time 22.2 sec (22.0-30.0); Prothrombin Time 10.2 sec (9.0-12.0)
[2018-03-03 02:47] LABS: Creatine Kinase <20 U/L (55-170)
[2018-03-03] MEDS ORDERED: ONDANSETRON 4 MG/2 ML VIAL IVP STA (02:49)
[2018-03-03 03:00] LABS: Creatine Kinase MB 0.3 ng/mL (0.0-2.4); Troponin I <0.012 ng/mL (0.000-0.034)
--- NOTE | 2018-03-03 03:21 | XR ---
EXAMINATION TYPE: XR chest 2V DATE OF EXAM: 03/03/2018 COMPARISON: 09/21/2014 HISTORY: Weakness TECHNIQUE: Frontal and lateral views of the chest are obtained. FINDINGS: There is no heart failure nor confluent pneumonic infiltrate. There is left axillary pacem luz elena with the lead tips in the right ventricle. There are chest leads. Costophrenic angles are clear. Bony thorax is intact. IMPRESSION: No active cardiopulmonary disease. No change.
[2018-03-03] MEDS ORDERED: NITROGLYCERIN SL TABS 0.4 MG TAB SUBLINGUAL PRN (04:11)
[2018-03-03] MEDS ORDERED: ASPIRIN 81 MG PO STA (04:11)
[2018-03-03 07:01] LABS: Glucose,Whole Blood 212 mg/dL (75-99)
[2018-03-03 08:49] LABS: Creatine Kinase <20 U/L (55-170)
[2018-03-03 09:00] LABS: Creatine Kinase MB 0.7 ng/mL (0.0-2.4); Troponin I <0.012 ng/mL (0.000-0.034)
[2018-03-03 12:04] LABS: Glucose,Whole Blood 139 mg/dL (75-99)
[2018-03-03 12:11] LABS: Creatine Kinase 20 U/L (55-170)
[2018-03-03 12:25] LABS: Creatine Kinase MB 0.8 ng/mL (0.0-2.4); Troponin I <0.012 ng/mL (0.000-0.034)
[2018-03-03 13:23] LABS: Appearance,Urine Clear (Clear); Bilirubin,Urine Negative (Negative); Blood,Urine Negative (Negative); Color,Urine Yellow; Glucose,Urine (UA) Negative (Negative); Hyaline Casts,Urine 6 /lpf (0-2); Ketones,Urine Negative (Negative); Leukocyte Esterase,Urine Small (Negative); Mucus,Urine Rare /hpf; Nitrite,Urine Negative (Negative); Protein,Urine Negative (Negative); RBC,Urine <1 /hpf (0-5); Specific Gravity,Urine 1.013 (1.001-1.035); Squamous Epithelial Cell,Urine <1 /hpf (0-4); Urobilinogen,Urine <2.0 mg/dL (<2.0); WBC,Urine 1 /hpf (0-5)
[2018-03-03] MEDS ORDERED: METOPROLOL SUCCINATE (ER) 50 MG TAB.ER.24H PO SCH (14:45)
--- NOTE | 2018-03-03 15:59 | P.CRDCN ---
History of Present Illness History of present illness: This is a pleasant 77-year-old male past medical history significant for chronic congestive heart failure, coronary artery disease, ischemic cardiomyopathy, moderate aortic regurgitation, diabetes mellitus, hypertension, peripheral vascular disease, status post AICD. Most recent cardiac catheterization performed in 2013 reveals LAD with 40% proximal and mid stenosis , RCA with 70-80% stenosis with patent distal stent. At the time of the catheterization attempted angioplasty of the proximal RCA was unsuccessful. Maximum medical therapy at that time was recommended. He follows with Dr. Rose in the office, however he has not been to the office since 2014. He is unable to clearly explain to me why he is at the hospital. Much information is obtained from the medical record. Emergency room documentation indicates that he came here with his secondary to altered mental status and episodes of unresponsiveness yesterday. He does not quite recall this episode. He denies symptoms of chest pain, shortness of breath, dizziness or palpitations. EKG reveals atrial sensed ventricular paced rhythm. Chest x-ray negative for an acute cardiopulmonary process. Laboratory data reviewed, WBC 10.8, hemoglobin 9.8, platelets 135, d-dimer 1.87 , sodium 133, potassium 4.9, creatinine 1.3, TSH 1.44, troponin negative 3. Current cardiac medications include aspirin 81 mg daily, atorvastatin 40 mg daily, Lasix 40 mg daily, Imdur 60 mg daily, lisinopril 10 mg daily, Toprol 50 mg daily. Most recent echocardiogram obtained in the office 2014 reveals evidence of an inferior wall SD with ejection fraction 45%, mild aortic stenosis with moderate aortic regurgitation. At the time of my exam: CONSTITUTIONAL: Denies fever. Denies chills. EYES: Denies blurred vision. Denies vision changes. Denies eye pain. EARS, NOSE, MOUTH & THROAT: Denies headache. Denies sore throat. Denies ear pain. CARDIOVASCULAR: Denies chest pain. Denies shortness of breath. Denies orthopnea. Denies PND. Denies palpitations. RESPIRATORY: Denies cough. GASTROINTESTINAL: Denies abdominal pain. Denies diarrhea. Denies constipation. Denies nausea. Denies vomiting. MUSCULOSKELETAL: Denies myalgias. INTEGUMENTARY: Denies pruitis. Denies rash. NEUROLOGIC: Denies numbness. Denies tingling. Denies weakness. PSYCHIATRIC: Denies anxiety. Denies depression. ENDOCRINE: Denies fatigue. Denies weight change. Denies polydipsia. Denies polyurina. GENITOURINARY: Denies burning, hematuria or urgency with micturation. HEMATOLOGIC: Denies history of anemia. Denies bleeding. Blood pressure 119/55 heart rate 48 afebrile maintaining oxygen saturation on room air GENERAL: This is a 77-year-old male in no apparent distress at the time of my examination. HEENT: Head is atraumatic, normocephalic. Pupils are equal, round. Sclerae anicteric. Conjunctivae are clear. Mucous membranes of the mouth are moist. Neck is supple. There is no jugular venous distention. No carotid bruit is heard. LUNGS: Clear to auscultation no wheezes, rales or rhonchi. No chest wall tenderness is noted on palpation or with deep breathing. HEART: Regular rate and rhythm with murmur at the base, no rubs or gallops. S1 and S2 heard. ABDOMEN: Soft, nontender. Bowel sounds are heard. No organomegaly noted. EXTREMITIES: Trace bilateral lower extremity nonpitting edema and no calf tenderness noted. VASCULAR: Radial and dorsalis pedis pulses palpated, no evidence of clubbing. NEUROLOGIC: Patient is awake, alert and oriented x3. ASSESSMENT Altered mental status Possible syncope Elevated d-dimer, PE needs to be ruled out. Coronary artery disease Ischemic cardiomyopathy AICD Dyslipidemia Hypertension History of dementia Alzheimer's on Namenda and Aricept PLAN Obtain 2-D echocardiogram and Doppler study to assess cardiac structure and function. Interrogate LookSharp (powering Intern[employer]) device for any arrhythmia. Perform CT angiogram chest rule out pulmonary embolism. Continue aspirin, atorvastatin, Lasix, Imdur, lisinopril and metoprolol. Ongoing telemetry monitoring for signs of an acute arrhythmia. Further recommendations to follow based upon clinical course. Thank you kindly for this consultation. Nurse Practitioner note has been reviewed, I agree with a documented findings and plan of care. Patient was seen and examined. Past Medical History Past Medical History: Coronary Artery Disease (CAD), Chest Pain / Angina, CVA/ TIA, Dementia, Diabetes Mellitus, GERD/Reflux, Hyperlipidemia, Hypertension, Memory Impairment, Myocardial Infarction (SD), Prostate Disorder, Sleep Apnea/ CPAP/BIPAP Additional Past Medical History / Comment(s): NEUROPATHY RADHA FEET, , CELLULITIS LT ANKLE AND WEEPING FROM RT SEAMAN AREA, EDEMA TO BLE, POOR CIRULATION OF LOWER LEGS "INFECTION OF ESOPHAGUS" DIFFICULTY SWALLOWING AT TIMES , RECENT OBV FOR N/ V, impetego 02/12/2018 Last Myocardial Infarction Date:: 2012 History of Any Multi-Drug Resistant Organisms: MRSA, VRE Date of last positivie culture/infection: 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; 08/04/15-MRSA MDRO Source:: VRE and MRSA-Left Ankle Past Surgical History: AICD, Heart Catheterization With Stent, Joint Replacement Additional Past Surgical History / Comment(s): TOTAL LT HIP, 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, LT FOOT SKIN GRAFT, RADHA CATARACTS, EGD, Past Anesthesia/Blood Transfusion Reactions: No Reported Reaction Date of Last Stent Placement:: RE-2009 Type of Cardiac Device: AICD Device Placement Date:: 2011 Past Psychological History: Anxiety, Depression Smoking Status: Former smoker Past Alcohol Use History: None Reported Past Drug Use History: None Reported - Past Family History Mother Family Medical History: CVA/TIA Medications and Allergies Home Medications Medication Instructions Recorded Confirmed Type Atorvastatin [Lipitor] 40 mg PO DAILY 10/17/13 03/03/18 History Isosorbide Mononitrate [Imdur] 60 mg PO DAILY 10/17/13 03/03/18 History Lisinopril [Zestril] 10 mg PO DAILY 10/17/13 03/03/18 History Donepezil [Aricept] 10 mg PO HS 08/04/15 03/03/18 History sitaGLIPtin [Januvia] 50 mg PO DAILY 08/04/15 03/03/18 History Memantine HCl [Namenda] 10 mg PO DAILY 09/20/16 03/03/18 History Aspirin EC [Ecotrin Low Dose] 81 mg PO DAILY 11/13/17 03/03/18 History Citalopram Hydrobromide [CeleXA] 20 mg PO DAILY 11/13/17 03/03/18 History Metoprolol Succinate (ER) [Toprol 50 mg PO DAILY 11/13/17 03/03/18 History XL] Furosemide [Lasix] 40 mg PO DAILY 12/04/17 03/03/18 History Cinnamon Bark [Cinnamon] 1,000 mg PO DAILY 02/12/18 03/03/18 History metFORMIN HCL 500 mg PO AC-BID 02/12/18 03/03/18 History Meclizine HCl 25 mg PO TID PRN 03/03/18 03/03/18 History Allergies Allergy/AdvReac Type Severity Reaction Status Date / Time No Known Allergies Allergy Verified 03/03/18 05:55 Physical Exam Vitals: Vital Signs Temp Pulse Pulse Resp BP BP Pulse Ox 03/03/18 12:00 97.7 F 48 L 18 119/55 97 03/03/18 08:00 97.6 F 54 L 18 133/66 99 03/03/18 06:31 16 03/03/18 06:24 97.8 F 46 L 16 125/62 96 03/03/18 05:00 49 L 16 122/79 99 03/03/18 04:00 50 L 16 119/57 96 03/03/18 03:00 108/72 03/03/18 02:40 49 L 6 L 108/72 93 L 03/03/18 02:30 51 L 16 114/46 97 03/03/18 01:50 51 L 17 120/56 98 03/03/18 01:41 56 L 8 L 92 L 03/03/18 01:28 97.9 F 58 L 18 137/65 98 Intake and Output 03/03/18 03/03/18 03/03/18 06:59 14:59 22:59 Other: Voiding Method Incontinent Toilet Diaper # Voids 1 Weight 105.8 kg Results 03/03/18 01:25 03/03/18 01:25 Cardiac Enzymes 03/03/18 03/03/18 03/03/18 Range/Units 01:25 01:25 07:18 AST 21 (17-59) U/L CK-MB (CK-2) 0.3 0.7 (0.0-2.4) ng/mL Troponin I <0.012 <0.012 (0.000-0.034) ng/mL 03/03/18 Range/Units 11:06 AST (17-59) U/L CK-MB (CK-2) 0.8 (0.0-2.4) ng/mL Troponin I <0.012 (0.000-0.034) ng/mL Coagulation 03/03/18 Range/Units 01:25 PT 10.2 (9.0-12.0) sec APTT 22.2 (22.0-30.0) sec CBC 03/03/18 Range/Units 01:25 WBC 10.8 H (3.8-10.6) k/uL RBC 3.08 L (4.30-5.90) m/uL Hgb 9.8 L (13.0-17.5) gm/dL Hct 28.1 L (39.0-53.0) % Plt Count 135 L (150-450) k/uL Comprehensive Metabolic Panel 03/03/18 Range/Units 01:25 Sodium 133 L (137-145) mmol/L Potassium 4.9 (3.5-5.1) mmol/L Chloride 102 (98-107) mmol/L Carbon Dioxide 23 (22-30) mmol/L BUN 34 H (9-20) mg/dL Creatinine 1.23 (0.66-1.25) mg/dL Glucose 213 H (74-99) mg/dL Calcium 9.2 (8.4-10.2) mg/dL AST 21 (17-59) U/L ALT 29 (21-72) U/L Alkaline Phosphatase 100 (38-126) U/L Total Protein 6.6 (6.3-8.2) g/dL Albumin 3.6 (3.5-5.0) g/dL Current Medications Generic Name Dose Route Start Last Admin Trade Name Freq PRN Reason Stop Dose Admin Aspirin 81 mg 03/04/18 09:00 Aspirin PO DAILY COUNTS INCLUDE 234 BEDS AT THE [facility] Atorvastatin Calcium 40 mg 03/03/18 14:45 Lipitor PO DAILY COUNTS INCLUDE 234 BEDS AT THE [facility] Citalopram Hydrobromide 20 mg 03/03/18 14:45 Celexa PO DAILY COUNTS INCLUDE 234 BEDS AT THE [facility] Donepezil HCl 10 mg 03/03/18 21:00 Aricept PO HS MORALES Furosemide 40 mg 03/03/18 14:45 Lasix PO DAILY COUNTS INCLUDE 234 BEDS AT THE [facility] Isosorbide Mononitrate 60 mg 03/03/18 14:45 Imdur PO DAILY MORALES Linagliptin 5 mg 03/03/18 14:45 Tradjenta PO DAILY COUNTS INCLUDE 234 BEDS AT THE [facility] Lisinopril 10 mg 03/03/18 14:45 Zestril PO DAILY MORALES Memantine 10 mg 03/03/18 14:45 Namenda PO DAILY COUNTS INCLUDE 234 BEDS AT THE [facility] Metformin HCl 500 mg 03/03/18 17:30 Glucophage PO AC-BID COUNTS INCLUDE 234 BEDS AT THE [facility] Metoprolol Succinate 50 mg 03/03/18 14:45 Toprol Xl PO DAILY MORALES Nitroglycerin 0.4 mg 03/03/18 04:11 Nitrostat SUBLINGUAL Q5M PRN Chest Pain Intake and Output 03/03/18 03/03/18 03/03/18 06:59 14:59 22:59 Other: Voiding Method Incontinent Toilet Diaper # Voids 1 Weight 105.8 kg 03/03/18 01:25 03/03/18 01:25
[2018-03-03 16:48] LABS: Glucose,Whole Blood 139 mg/dL (75-99)
[2018-03-03] MEDS: ATORVASTATIN 40 MG TAB PO SCH (17:23)
[2018-03-03] MEDS: CITALOPRAM HYDROBROMIDE 20 MG TAB PO SCH (17:24)
[2018-03-03] MEDS: ISOSORBIDE MONONITRATE ER 60 MG TAB.ER.24H PO SCH (17:24)
[2018-03-03] MEDS: LISINOPRIL 10 MG TAB PO SCH (17:24)
[2018-03-03] MEDS: metFORMIN 500 MG TAB PO SCH (17:24)
[2018-03-03] MEDS: LINAGLIPTIN 5 MG TABLET PO SCH (17:24)
[2018-03-03] MEDS: MEMANTINE 10 MG TAB PO SCH (17:24)
[2018-03-03] MEDS: FUROSEMIDE 40 MG TAB PO SCH (17:24)
--- NOTE | 2018-03-03 19:12 | CT ---
EXAMINATION TYPE: CT chest angio for PE DATE OF EXAM: 03/03/2018 COMPARISON: NONE HISTORY: Syncope, elevated d-dimer. Hx heart disease heart cath/stent. CT DLP: 746.6 mGycm. Automated Exposure Control for Dose Reduction was Utilized. CONTRAST: CTA scan of the thorax is performed with IV Contrast, patient injected with 80 mL of Isovue 370, pulm onary embolism protocol. MIP Images are created on CT scanner and reviewed. FINDINGS: LUNGS: There are geographic groundglass opacities scattered throughout the lungs and mild interstitia l prominence. Scattered blebs are noted at the lung bases posteriorly. The lungs are grossly clear, t here is no concerning parenchymal mass or nodule identified. There is no pleural effusion or pneumo thorax seen. The tracheobronchial tree is patent. MEDIASTINUM: There is satisfactory enhancement of the central and segmental pulmonary artery and its branches, there is no CT evidence for pulmonary embolism within these arteries. There is slight limit ation of the subsegmental arteries given bolus timing with similar opacification of the ascending tho racic aorta and main pulmonary artery. There are no greater than 1 cm hilar or mediastinal lymph nod es. There is four-chamber cardiomegaly and left-sided cardiac device. No pericardial effusion there i s aneurysmal dilatation of the aortic root measuring 4.3 cm. Ascending thoracic aorta is also mildly enlarged measuring 4.0 cm. OTHER: There is circumferential esophageal mass coastal thickening in the mid and distal esophagus. P unctate hyperdense focus on image 85 likely relates to ingested substance. Minimal layering debris wi thin the gallbladder fundus may relate to biliary sludge or small gallstones. Spleen is enlarged theodore uring 14.1 cm in longitudinal dimension. Motion artifact limits evaluation of the visualized portions of the upper abdomen. Bilateral retroareolar probable gynecomastia seen. Multilevel degenerative evelina nges of the spine are mild. IMPRESSION: 1. No evidence of central pulmonary embolus within the main pulmonary arteries or segmental pulmonary arteries. Subsegmental pulmonary arteries are limited given suboptimal opacification. 2. Findings suggesting mild fluid overload, likely on a cardiogenic basis with cardiomegaly. No injur y. Circumferential mid and distal esophageal thickening that given its long segment likely relates to esophagitis although if there is further concern endoscopy could be performed. Punctate high density focus within the posterior mediastinum likely relates to ingested substance. 3. Aneurysmal dilatation of the aortic root and ascending thoracic aorta. 4. Splenomegaly.
--- NOTE | 2018-03-03 19:40 | HP ---
HISTORY AND PHYSICAL DATE OF ADMISSION: 03/03/2018. DATE OF SERVICE: 03/03/2018. PRESENT COMPLAINT: Decreased responsiveness. HISTORY OF PRESENTING COMPLAINT: This is a 77-year-old patient. The patient follows with Dr. Jalloh. He has a rather extensive medical history. Chronic stable medical conditions include coronary artery disease, diabetes, GERD, hypertension, hyperlipidemia, sleep apnea, peripheral neuropathy. The patient also has an esophageal stricture. The patient is not a very good historian, can only answer occasional questions. The patient actually does not remember why he is here. History is obtained by the nurse and from the ER. The patient was sitting up and became less responsive and somewhat green ashen for some time, then came about. No seizure activity or tongue biting was reported. The patient does not remember any episodes like stated earlier. When patient presented to the ER, the patient's heart rate has been in the 40s and 50s. The patient is on Toprol-XL. Cardiology was consulted. [facility] was contacted for report. The patient denies any chest pain. No palpitations. REVIEW OF SYSTEMS: CONSTITUTIONAL: Tired. HEENT: Decreased hearing. RESPIRATORY: None. GASTROINTESTINAL: None. GENITOURINARY: None. MUSCULOSKELETAL: Pain in the joints. DERMATOLOGICAL: None. HEMATOLOGIC: None. LYMPHATICS: None. PSYCHIATRY: Forgetful. NEUROLOGICAL: Numbness and tingling in the feet. PAST MEDICAL HISTORY: Coronary artery with stent, angina, stroke, diabetes, GERD, hypertension, hyperlipidemia, prostate disorder, sleep apnea, peripheral neuropathy, poor circulation in the lower extremities, VRE, MRSA infection left ankle, esophageal stricture. PAST SURGICAL HISTORY: Cardiac cath with stent, left total hip, right foot great toe 2nd toe amputation, left foot skin graft, bilateral cataracts, AICD, esophageal stricture dilatation. PSYCH HISTORY: History of anxiety and depression. SOCIAL HISTORY: The patient smoked for about 18 years, stopped in 1974. Was a cervantes. . FAMILY HISTORY: Stroke. HOME MEDICATIONS: 1. Januvia 50 mg a day. 2. Metformin 500 mg p.o. b.i.d. 3. Toprol-XL 50 mg a day. 4. Namenda 10 mg p.o. daily. 5. Meclizine 25 mg p.o. t.i.d. p.r.n. 6. Zestril 10 mg p.o. daily. 7. Imdur 60 mg p.o. daily. 8. Lasix 40 mg p.o. daily. 9. Aricept 10 mg p.o. at bedtime. 10.Celexa 20 mg p.o. daily. 11.Cinnamon 1000 mg p.o. daily. 12.Lipitor 40 mg p.o. daily. 13.Aspirin 81 mg p.o. daily. ALLERGIES: None. PHYSICAL EXAMINATION: VITAL SIGNS: Vital signs on presentation, temperature 97.9, pulse 58, respirations 18, blood pressure 137/65, pulse ox 98% on room air. Heart rate did go down to the 40s. GENERAL APPEARANCE: Well built, BMI over 30. Lying in bed, awake. EYES: Pupils equal. Conjunctivae pale. HEENT: External appearance of nose and ears normal. Oral cavity normal. Decreased hearing. NECK: JVD unable to assess. Mass not palpable. Respiratory effort normal. LUNGS: Diminished breath sounds. CARDIOVASCULAR: 1st and 2nd sounds. No edema. ABDOMEN: Soft, nontender. Liver and spleen not palpable. LYMPHATIC: No nodes palpable in the neck or axillae. PSYCHIATRY: Patient is able to answer some questions, otherwise rather forgetful. MUSCULOSKELETAL: Evidence of osteoarthritis, especially in the hands. INVESTIGATIONS: White count 10.8, hemoglobin 9.8, platelets 135,000, potassium 4.9, BUN 34, creatinine 1.23. Troponin less than 0.012. TSH normal. The patient's hemoglobin back in October was 9.77. EKG tracing personally reviewed by me shows a paced rhythm. Chest x-ray film, personally reviewed by me, shows cardiomegaly, pacemaker with leads. No obvious venous prominence. ASSESSMENT: 1. Episode of decreased responsiveness and patient's heart rate is running in the 50s and 40s. This could be contributing to his presentation. The patient needs to have his pacemaker/AICD checked. Blood pressures tend to be running, some readings on the lower side. The patient may be could benefit from actually cutting back on the dose of beta carina and also spreading it to shorter acting dose that might benefit. 2. Presbyesophagus. 3. Coronary artery disease, prior history of stent. 4. Diabetes mellitus type 2 on oral hypoglycemic. 5. Hyperlipidemia. 6. Essential hypertension. 7. Duodenal ulcer with duodenitis. 8. Prostate disorder. 9. Obstructive sleep apnea does not use CPAP. 10.Peripheral neuropathy secondary to diabetes. 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 PLAN: The patient's beta carina dose will be cut back to Lopressor 12.5 twice a day. Cardiology was consulted. The patient already has an AICD in place. Currently no family is present. MMODL / IJN: [id number] /
[2018-03-03 19:56] LABS: Hemoglobin A1C 6.6 % (4.0-6.0)
[2018-03-03] MEDS: METOPROLOL TARTRATE 12.5 MG TAB PO SCH (20:05)
[2018-03-03] MEDS: DONEPEZIL 10 MG TAB PO SCH (20:05)
[2018-03-03 20:32] LABS: Glucose,Whole Blood 189 mg/dL (75-99)
[2018-03-04 06:52] LABS: Glucose,Whole Blood 162 mg/dL (75-99)
[2018-03-04] MEDS: ASPIRIN 81 MG PO SCH (08:16)
[2018-03-04] MEDS: CITALOPRAM HYDROBROMIDE 20 MG TAB PO SCH (08:16)
[2018-03-04] MEDS: LINAGLIPTIN 5 MG TABLET PO SCH (08:16)
[2018-03-04] MEDS: MEMANTINE 10 MG TAB PO SCH (08:16)
[2018-03-04] MEDS: ISOSORBIDE MONONITRATE ER 60 MG TAB.ER.24H PO SCH (08:16)
[2018-03-04] MEDS: LISINOPRIL 10 MG TAB PO SCH (08:16)
[2018-03-04] MEDS: ATORVASTATIN 40 MG TAB PO SCH (08:16)
[2018-03-04] MEDS: metFORMIN 500 MG TAB PO SCH ×2 (08:16→17:19)
[2018-03-04] MEDS: FUROSEMIDE 40 MG TAB PO SCH (08:16)
--- NOTE | 2018-03-04 08:38 | ECHOF ---
Referral Reason:syncope, known heart failure MEASUREMENTS -------- HEIGHT: 177.8 cm WEIGHT: 90.7 kg BP: IVSd: 1.4 cm (0.6 - 1.1) LVIDd: 4.0 cm (3.9 - 5.3) LVPWd: 1.5 cm (0.6 - 1.1) IVSs: 1.7 cm LVIDs: 2.5 cm LVPWs: 1.6 cm Ao Diam: 4.2 cm (2.0 - 3.7) AV Cusp: 1.7 cm (1.5 - 2.6) LA Diam: 3.7 cm (2.7 - 3.8) MV EXCURSION: 15.857 mm (> 18.000) MV EF SLOPE: 59 mm/s (70 - 150) EPSS: 1.9 cm MV E Gilbert: 0.79 m/s MV DecT: 332 ms MV A Gilbert: 0.96 m/s MV E/A Ratio: 0.82 AV maxP.70 mmHg AV meanP.42 mmHg AR PHT: 1841 ms RAP: 5.00 mmHg RVSP: 33.70 mmHg FINDINGS -------- AICD This was a technically difficult study with suboptimal views. The left ventricular size is normal. There is moderate concentric left ventricular hypertrophy. O verall left ventricular systolic function is low-normal with, an EF between 50 - 55 %. The right ventricle is normal in size and function. The left atrium is normal in size. The right atrium is normal in size. xx ml of Lumason was utilized for enhancement of images. Aortic valve is trileaflet and is mildly thickened. There is mild aortic regurgitation. There is mild aortic stenosis present. Peak/mean gradient across the Aortic Valve is 20.70mmHg / 13.42mmHg. The mitral valve leaflets are mildly thickened. There is trace mitral regurgitation. Mild tricuspid regurgitation present. The right ventricular systolic pressure, as measured by Doppl er, is 33.70mmHg. Pulmonic valve appears structurally normal. The aortic root is dilated measuring 4.2 cm. The pericardium is normal. CONCLUSIONS -------- 1. AICD 2. This was a technically difficult study with suboptimal views. 3. The left ventricular size is normal. 4. There is moderate concentric left ventricular hypertrophy. 5. Overall left ventricular systolic function is low-normal with, an EF between 50 - 55 %. 6. The right ventricle is normal in size and function. 7. The left atrium is normal in size. 8. The right atrium is normal in size. 9. xx ml of Lumason was utilized for enhancement of images. 10. Aortic valve is trileaflet and is mildly thickened. 11. There is mild aortic regurgitation. 12. There is mild aortic stenosis present. 13. Peak/mean gradient across the Aortic Valve is 20.70mmHg / 13.42mmHg. 14. The mitral valve leaflets are mildly thickened. 15. There is trace mitral regurgitation. 16. Mild tricuspid regurgitation present. 17. The right ventricular systolic pressure, as measured by Doppler, is 33.70mmHg. 18. Pulmonic valve appears structurally normal. 19. The aortic root is dilated measuring 4.2 cm. 20. The pericardium is normal. QUALITY SUPERVISOR: Юлия Modi RDCS
[2018-03-04] MEDS ORDERED: ASPIRIN 325 MG TAB PO SCH (09:00)
[2018-03-04] MEDS: METOPROLOL TARTRATE 12.5 MG TAB PO SCH ×2 (10:02→20:42)
[2018-03-04 10:31] LABS: Cholesterol 107 mg/dL (<200); HDL Cholesterol 25 mg/dL (40-60); LDL Cholesterol,Calculated 48 mg/dL (0-99); Triglycerides 171 mg/dL (<150)
[2018-03-04 11:39] LABS: Glucose,Whole Blood 133 mg/dL (75-99)
--- NOTE | 2018-03-04 13:55 | P.PN ---
Subjective Progress Note Date: 03/04/18 This is a 77-year-old gentleman who was admitted to the hospital with history of cardiomyopathy, AICD implantation, diabetes, hypertension and also aortic regurgitation who was admitted to the hospital with altered mental status and possible syncope. We're asked to evaluate the patient for evaluation of possible syncope. Patient's device was interrogated. No evidence of any shocks or pacemaker failure. Patient had short bursts of PMT. His echocardiogram showed a mildly impaired LV function. Patient seems to be stable today. No complaints of any chest pain, shortness of breath or dizziness. The etiology of his symptoms is not entirely clear. Cardiac-askew, patient seems to be stable Objective - Vital Signs Vital signs: Vital Signs Temp 97.5 F L 03/04/18 12:00 Pulse 60 03/04/18 12:00 Resp 18 03/04/18 12:00 BP 136/61 03/04/18 12:00 Pulse Ox 98 03/04/18 12:00 Intake & Output 03/03/18 03/04/18 03/04/18 18:59 06:59 18:59 Other: Voiding Method Toilet Toilet Toilet Diaper Diaper Diaper # Voids 1 2 1 # Bowel Movements 1 - Exam GENERAL EXAM: Patient is alert and oriented and doesn't appear to be in any acute distress HEENT: Normocephalic. Normal reaction of pupils, equal size, normal range of extraocular motion. No erythema or exudates in the throat. NECK: No masses, no nuchal rigidity. CHEST: No chest wall deformity. LUNGS: Equal air entry with no crackles or wheeze. HEART: S1 and S2 normal with no audible mumurs or gallops. Regular rhythm, femorals equal on both sides.. ABDOMEN: No hepatosplenomegaly, normal bowel sounds, no guarding or rigidity. SKIN: No rashes CENTRAL NERVOUS SYSTEM: No focal deficits. EXTREMITIES: No cyanosis, clubbing or edema. - Labs CBC & Chem 7: 03/03/18 01:25 03/03/18 01:25 Labs: Abnormal Lab Results - Last 24 Hours (Table) 03/03/18 03/03/18 03/03/18 Range/Units 07:18 07:18 16:43 POC Glucose (mg/dL) 139 H (75-99) mg/dL Hemoglobin A1c 6.6 H (4.0-6.0) % Triglycerides 171 H (<150) mg/dL HDL Cholesterol 25 L (40-60) mg/dL 03/03/18 03/04/18 03/04/18 Range/Units 20:09 06:48 11:38 POC Glucose (mg/dL) 189 H 162 H 133 H (75-99) mg/dL Hemoglobin A1c (4.0-6.0) % Triglycerides (<150) mg/dL HDL Cholesterol (40-60) mg/dL Microbiology - Last 24 Hours (Table) 03/03/18 11:40 Urine Culture - Preliminary Urine,Clean Catch Assessment and Plan (1) Altered mental status Current Visit: Yes Status: Acute Code(s): R41.82 - ALTERED MENTAL STATUS, UNSPECIFIED SNOMED Code(s): 229977131 (2) Syncope Current Visit: Yes Status: Acute Code(s): R55 - SYNCOPE AND COLLAPSE SNOMED Code(s): 256201854 (3) History of cardiomyopathy Current Visit: Yes Status: Acute Code(s): Z86.79 - PERSONAL HISTORY OF OTHER DISEASES OF THE CIRCULATORY SYSTEM SNOMED Code(s): 296862779832092 (4) Cardiac defibrillator in place Current Visit: Yes Status: Acute Code(s): Z95.810 - PRESENCE OF AUTOMATIC ( IMPLANTABLE) CARDIAC DEFIBRILLATOR SNOMED Code(s): 919485091 Plan: Patient seemed to be stable. No evidence of any recurrence of syncope and altered mental status. His device seems to function normally with evidence of shortness of PMT. Echocardiogram showed mildly impaired LV function. Continue current medical therapy. We'll see him as needed
[2018-03-04 16:43] LABS: Glucose,Whole Blood 150 mg/dL (75-99)
[2018-03-04] MEDS: DONEPEZIL 10 MG TAB PO SCH (20:42)
[2018-03-04 20:45] LABS: Glucose,Whole Blood 173 mg/dL (75-99)
[2018-03-05 06:35] LABS: Glucose,Whole Blood 156 mg/dL (75-99)
[2018-03-05 07:26] VITALS: PULSE 57; RESP 18; TEMP 98.1
[2018-03-05] MEDS: ATORVASTATIN 40 MG TAB PO SCH (07:33)
[2018-03-05] MEDS: METOPROLOL TARTRATE 12.5 MG TAB PO SCH (07:33)
[2018-03-05] MEDS: LISINOPRIL 10 MG TAB PO SCH (07:33)
[2018-03-05] MEDS: FUROSEMIDE 40 MG TAB PO SCH (07:33)
[2018-03-05] MEDS: CITALOPRAM HYDROBROMIDE 20 MG TAB PO SCH (07:33)
[2018-03-05] MEDS: metFORMIN 500 MG TAB PO SCH (07:33)
[2018-03-05] MEDS: ASPIRIN 81 MG PO SCH (07:33)
[2018-03-05] MEDS: LINAGLIPTIN 5 MG TABLET PO SCH (07:34)
[2018-03-05] MEDS: MEMANTINE 10 MG TAB PO SCH (07:34)
[2018-03-05] MEDS: ISOSORBIDE MONONITRATE ER 60 MG TAB.ER.24H PO SCH (07:34)
[2018-03-05 11:45] VITALS: BP 129/66
[2018-03-05 12:01] LABS: Glucose,Whole Blood 137 mg/dL (75-99)
--- NOTE | 2018-03-06 09:16 | DS ---
DISCHARGE SUMMARY DATE OF ADMISSION: 03/03/2018 DATE OF DISCHARGE: 03/05/2018. FINAL DIAGNOSES: 1. Near syncope from bradycardia from beta carina. 2. Presbyesophagus, chronic. 3. Coronary artery disease, prior history of stent. 4. Diabetes mellitus type 2 on oral hypoglycemic. 5. Hyperlipidemia. 6. Essential hypertension. 7. Duodenal ulcer with duodenitis, chronic. 8. Prostate disorder. 9. Obstructive sleep apnea, does not use CPAP. 10.Peripheral neuropathy secondary to diabetes. 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 HOSPITAL COURSE: This patient with near syncope, found to be bradycardic, heart rate went down to the 40s. Dose of Lopressor was cut back. Patient did have his AICD checked that came back to be okay. Cleared by Cardiology. Patient did have a 2-D echocardiogram showed EF of 50% to 55%. Chest CTA did show some cardiomegaly, circumferential esophageal thickening. The patient was cleared by Cardiology. DISCHARGE MEDICATIONS: 1. Lipitor 40 mg a day. 2. Imdur 60 mg a day. 3. Zestril 10 mg a day. 4. Aricept 10 mg q.h.s. 5. Januvia 50 mg p.o. daily. 6. Namenda 10 mg p.o. daily. 7. Aspirin 81 mg p.o. daily. 8. Celexa 20 mg p.o. daily. 9. Lasix 40 mg p.o. daily. 10.Cinnamon 1000 mg p.o. daily. 11.Metformin 500 mg b.i.d. 12.Lopressor 12.5 p.o. b.i.d. Follow up with Visiting Physician, Dr. Madden, in 3 days. Follow up with Dr. Ciro Rose in 2 weeks. The patient also had a GI consultation as an outpatient to be arranged in [address] David for the CT scan findings. MMODL / IJN: [id number] /
== END 2018-03-05 14:51 | disposition home or self-care (01) ==
LOC: EC 01:20 → 1SOBS 04:11
PROVIDERS: ADMIT Hospitalist; ATTEND Hospitalist
DX: R00.1 Bradycardia, unspecified (principal); T44.7X5A Adverse effect of beta-adrenoreceptor antagonists, initial encounter; I13.0 Hypertensive heart and chronic kidney disease with heart failure and stage 1 through stage 4 chronic kidney disease, or unspecified chronic kidney disease; I50.9 Heart failure, unspecified; N18.2 Chronic kidney disease, stage 2 (mild); E11.22 Type 2 diabetes mellitus with diabetic chronic kidney disease; I25.5 Ischemic cardiomyopathy; I25.10 Atherosclerotic heart disease of native coronary artery without angina pectoris; E11.51 Type 2 diabetes mellitus with diabetic peripheral angiopathy without gangrene; I35.2 Nonrheumatic aortic (valve) stenosis with insufficiency; R79.89 Other specified abnormal findings of blood chemistry; E78.5 Hyperlipidemia, unspecified; G30.9 Alzheimer's disease, unspecified; F02.80 Dementia in other diseases classified elsewhere, unspecified severity, without behavioral disturbance, psychotic disturbance, mood disturbance, and anxiety; K21.9 Gastro-esophageal reflux disease without esophagitis; G47.33 Obstructive sleep apnea (adult) (pediatric); E11.42 Type 2 diabetes mellitus with diabetic polyneuropathy; F41.9 Anxiety disorder, unspecified; F32.9 Major depressive disorder, single episode, unspecified; Z96.642 Presence of left artificial hip joint; K22.2 Esophageal obstruction; K22.8 Other specified diseases of esophagus; K29.80 Duodenitis without bleeding; K26.9 Duodenal ulcer, unspecified as acute or chronic, without hemorrhage or perforation; N42.9 Disorder of prostate, unspecified; Z79.84 Long term (current) use of oral hypoglycemic drugs; Z79.899 Other long term (current) drug therapy; Z99.89 Dependence on other enabling machines and devices; Z79.82 Long term (current) use of aspirin; Z95.810 Presence of automatic (implantable) cardiac defibrillator; Z86.14 Personal history of Methicillin resistant Staphylococcus aureus infection; Z95.5 Presence of coronary angioplasty implant and graft; I25.2 Old myocardial infarction; Z86.73 Personal history of transient ischemic attack (TIA), and cerebral infarction without residual deficits; Z16.21 Resistance to vancomycin; Z98.42 Cataract extraction status, left eye; Z98.41 Cataract extraction status, right eye; Z87.891 Personal history of nicotine dependence; Z82.3 Family history of stroke
CPT/HCPCS: 96361; 96374; 99285; 36415; 93005; 85379; 80061; 80053; 82550; 82553; 83605; 83735; 84100; 84443; 84484; 85025; 85610; 85730; 81001; 87086; 87077; 87186; 83036; 71046; 71275; G0378 ×3; C8929; J2405; Q9950; Q9967; 93306

== ENCOUNTER 2018-11-21 12:50 | Observation (INO) | payer OTHER, BC, MEDICARE ==
--- NOTE | 2018-11-21 13:36 | ED ---
Chest Pain HPI - General Chief Complaint: Chest Pain Stated Complaint: Chest pain Time Seen by Provider: 11/21/18 12:55 Source: patient, family, RN notes reviewed, old records reviewed Mode of arrival: ambulatory Limitations: no limitations - History of Present Illness Initial Comments: This is a 70-year-old male, this male presents today for evaluation of chest pain. Patient has continued and persistent current chest pain. Patient also feels a vein have some esophageal issues with history of esophageal stricture may be a need for dilation. Patient has mild nausea no vomiting decreased appetite with chest pain or shortness of breath, weakness. No recent change in medications no recent hospital admissions MD Complaint: chest pain -: hour(s) Onset: during rest, during exertion Pain Location: substernal, left chest Pain Radiation: none Severity: moderate Severity scale (1-10): 5 Quality: tightness, heaviness Consistency: constant Improves With: nothing Worsens With: nothing Context: recent surgery (Multiple history of esophageal dilations) Anginal Symptoms: nausea Treatments Prior to Arrival: none - Related Data Home Medications Medication Instructions Recorded Confirmed Atorvastatin [Lipitor] 40 mg PO DAILY 10/17/13 03/03/18 Isosorbide Mononitrate [Imdur] 60 mg PO DAILY 10/17/13 03/03/18 Lisinopril [Zestril] 10 mg PO DAILY 10/17/13 03/03/18 Donepezil [Aricept] 10 mg PO HS 08/04/15 03/03/18 sitaGLIPtin [Januvia] 50 mg PO DAILY 08/04/15 03/03/18 Memantine HCl [Namenda] 10 mg PO DAILY 09/20/16 03/03/18 Aspirin EC [Ecotrin Low Dose] 81 mg PO DAILY 11/13/17 03/03/18 Citalopram Hydrobromide [CeleXA] 20 mg PO DAILY 11/13/17 03/03/18 Furosemide [Lasix] 40 mg PO DAILY 12/04/17 03/03/18 Cinnamon Bark [Cinnamon] 1,000 mg PO DAILY 02/12/18 03/03/18 metFORMIN HCL 500 mg PO AC-BID 02/12/18 03/03/18 Previous Rx's Medication Instructions Recorded Metoprolol Tartrate [Lopressor] 12.5 mg PO BID #60 tab 03/05/18 Allergies Allergy/AdvReac Type Severity Reaction Status Date / Time No Known Allergies Allergy Verified 11/21/18 12:55 Review of Systems ROS Statement: Those systems with pertinent positive or pertinent negative responses have been documented in the HPI. ROS Other: All systems not noted in ROS Statement are negative. EKG Findings - EKG Comments: EKG Findings:: EKG shows patient admitted 75, CA 152, QRS 136, QTc 484 Past Medical History Past Medical History: Coronary Artery Disease (CAD), Chest Pain / Angina, CVA/TIA, Dementia, Diabetes Mellitus, GERD/Reflux, Hyperlipidemia, Hypertension, Memory Impairment, Myocardial Infarction ([place]), Prostate Disorder, Sleep Apnea/CPAP/BIPAP Additional Past Medical History / Comment(s): NEUROPATHY RADHA FEET, , CELLULITIS LT ANKLE AND WEEPING FROM RT SEAMAN AREA, EDEMA TO BLE, POOR CIRULATION OF LOWER LEGS "INFECTION OF ESOPHAGUS" DIFFICULTY SWALLOWING AT TIMES , RECENT OBV FOR N/V, impetego 02/12/2018 Last Myocardial Infarction Date:: 2012 History of Any Multi-Drug Resistant Organisms: MRSA, VRE Date of last positivie culture/infection: 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; 08/04/15-MRSA MDRO Source:: VRE and MRSA-Left Ankle Past Surgical History: AICD, Heart Catheterization With Stent, Joint Replacement Additional Past Surgical History / Comment(s): TOTAL LT HIP, 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, LT FOOT SKIN GRAFT, RADHA CATARACTS, EGD, Past Anesthesia/Blood Transfusion Reactions: No Reported Reaction Date of Last Stent Placement:: RE-2009 Type of Cardiac Device: AICD Device Placement Date:: 2011 Past Psychological History: Anxiety, Depression Smoking Status: Former smoker Past Alcohol Use History: None Reported Past Drug Use History: None Reported - Past Family History Mother Family Medical History: CVA/TIA General Exam Limitations: no limitations General appearance: alert, in no apparent distress Head exam: Present: atraumatic, normocephalic, normal inspection Eye exam: Present: normal appearance, PERRL, EOMI. Absent: scleral icterus, conjunctival injection, periorbital swelling ENT exam: Present: normal exam, mucous membranes moist Neck exam: Present: normal inspection. Absent: tenderness, meningismus, lymphadenopathy Respiratory exam: Present: normal lung sounds bilaterally. Absent: respiratory distress, wheezes, rales, rhonchi, stridor Cardiovascular Exam: Present: regular rate, normal rhythm, normal heart sounds. Absent: systolic murmur, diastolic murmur, rubs, gallop, clicks GI/Abdominal exam: Present: soft, normal bowel sounds. Absent: distended, tenderness, guarding, rebound, rigid Extremities exam: Present: normal inspection, full ROM, normal capillary refill. Absent: tenderness, pedal edema, joint swelling, calf tenderness Back exam: Present: normal inspection Neurological exam: Present: alert, oriented X3, CN II-XII intact Psychiatric exam: Present: normal affect, normal mood Skin exam: Present: warm, dry, intact, normal color. Absent: rash Course Vital Signs 11/21/18 11/21/18 12:53 14:11 Temperature 97.8 F Pulse Rate 91 65 Respiratory 18 18 Rate Blood Pressure 119/71 83/55 O2 Sat by Pulse 97 96 Oximetry - Reevaluation(s) Reevaluation #1: 11/21/18 14:58 Medical record is reviewed Reevaluation #2: 11/21/18 14:58 Patient's able to eat or drink Chest Pain MDM - MDM 70 male the ER for evaluation of chest pain, nonspecific chest pain. Patient be admitted for cardiac observation patient also has history of esophageal issues instructions. Currently able to tolerate oral intake but will also have evaluation by Dr. Duque who is his prior surgeon Disposition Clinical Impression: Chest pain, Dysphagia, Weakness, Bradycardia, Esophageal stricture Disposition: ADMITTED IP TO THIS HOSP Condition: Undetermined Is patient prescribed a controlled substance at d/c from ED?: No Referrals: Cas Madden MD [Primary Care Provider] - 1-2 days
--- NOTE | 2018-11-21 13:47 | XR ---
EXAMINATION TYPE: XR chest 2V DATE OF EXAM: 11/21/2018 COMPARISON: 03/03/2018 HISTORY: Chest pain TECHNIQUE: Frontal and lateral views of the chest are obtained. FINDINGS: Multilead left-sided cardiac device is seen. Cardia mediastinal fluid is enlarged and shif lyudmila to the right secondary to patient rotation. No focal consolidation, pleural effusion or pneumotho rax. IMPRESSION: No acute cardiopulmonary process.
[2018-11-21 13:58] LABS: Basophils % (A) 0 %; Eosinophils # (A) 0.4 k/uL (0-0.7); Eosinophils % (A) 4 %; HCT 31.6 % (39.0-53.0); Lymphocytes # (A) 1.1 k/uL (1.0-4.8); Lymphocytes % (A) 12 %; MCH 32.7 pg (25.0-35.0); MCHC 34.8 g/dL (31.0-37.0); MCV 93.9 fL (80.0-100.0); Mean Platelet Volume 8.5; Monocytes # (A) 0.3 k/uL (0-1.0); Monocytes % (A) 4 %; Neutrophils # (A) 6.6 k/uL (1.3-7.7); Neutrophils % (A) 78 %; Platelet Count 164 k/uL (150-450); RBC 3.37 m/uL (4.30-5.90); RDW 15.5 % (11.5-15.5); WBC 8.5 k/uL (3.8-10.6)
[2018-11-21 14:08] LABS: INR 0.9 (<1.2); Partial Thromboplastin Time 23.6 sec (22.0-30.0); Prothrombin Time 9.6 sec (9.0-12.0)
[2018-11-21 14:09] LABS: ALT 12 U/L (21-72); AST 17 U/L (17-59); African American GFR (CKD) 40 (>60 ml/min/1.73 sqM); Albumin 3.9 g/dL (3.5-5.0); Alkaline Phosphatase 114 U/L (38-126); Anion Gap 13 mmol/L; Blood Urea Nitrogen 39 mg/dL (9-20); Calcium 9.5 mg/dL (8.4-10.2); Carbon Dioxide 20 mmol/L (22-30); Chloride 106 mmol/L (98-107); Creatine Kinase <20 U/L (55-170); Glucose 180 mg/dL (74-99); Non-African American GFR(CKD) 35 (>60 ml/min/1.73 sqM); Potassium 4.6 mmol/L (3.5-5.1); Sodium 139 mmol/L (137-145); Total Bilirubin 0.4 mg/dL (0.2-1.3); Total Protein 7.2 g/dL (6.3-8.2)
[2018-11-21] MEDS ORDERED: NITROGLYCERIN SL TABS 0.4 MG TAB SUBLINGUAL PRN (14:28)
[2018-11-21] MEDS ORDERED: MORPHINE SULFATE 4 MG/ML SYRINGE IVP PRN (17:49)
[2018-11-21] MEDS ORDERED: MORPHINE SULFATE 4 MG/ML SYRINGE IVP STA (17:49)
[2018-11-21] MEDS: SODIUM CHLORIDE 0.9% 1,000 ML IV SCH (20:10)
[2018-11-21] MEDS ORDERED: metFORMIN 500 MG TAB PO SCH (21:30)
[2018-11-21] MEDS ORDERED: DONEPEZIL 10 MG TAB PO SCH (21:30)
[2018-11-21 21:47] LABS: Glucose,Whole Blood 152 mg/dL (75-99)
[2018-11-21] MEDS: traZODone HCL 50 MG TAB PO SCH (21:48)
[2018-11-21] MEDS: MEMANTINE 10 MG TAB PO SCH (21:48)
--- NOTE | 2018-11-21 23:21 | P.HPIM ---
History of Present Illness H&P Date: 11/21/18 Chief Complaint: Chest pain History of presenting complaint: This is a [address] Maynard. Chronic stable medical conditions include coronary artery disease, GERD, diabetes, hypertension, hyperlipidemia, sleep apnea, peripheral neuropathy, essential strictures. In fact patient has a scheduled esophageal dilatation by Dr. Duque tomorrow. Patient is brought to the ER by his . Patient himself is a poor historian and denies any chest pain currently. But he was born in the ER for chest pain defined as being continuous. Patient unable to qualify the pain. There is no shortness of breath. Denies any perspiration. Or palpitation. Review of systems: GEN.: None EYES: None HEENT: None NECK: None RESPIRATORY: None CARDIOVASCULAR: As above GASTROINTESTINAL: Some trouble swallowing GENITOURINARY: None MUSCULOSKELETAL: Pain in the joints LYMPHATICS: None HEMATOLOGICAL: None PSYCHIATRY: Forgetful NEUROLOGICAL: None Past medical history: Coronary artery disease with stent, angina, stroke, diabetes, GERD, hypertension, hyperlipidemia, prostate disorder, sleep apnea, peripheral neuropathy, poor circulation lower extremities, VRE and MRSA infection of left ankle, esophageal stricture Psych history: Anxiety depression Social history: Patient smoked for 18 years stopped in 1974. . Was a cervantes. Family history: Stroke Physical examination: VITAL SIGNS: 97.8, 91, 18, 119/71, 97% room air GENERAL: BMI 30.1, laying in bed awake. EYES: Pupils equal. Conjunctiva normal. HEENT: External appearance of nose and ears normal, oral cavity grossly normal. NECK: JVD not raised; masses not palpable. HEART: First and second heart sounds are normal; no edema. LUNGS: Respiratory rate normal; clear to auscultation. ABDOMEN: Soft, nontender, liver spleen not palpable, no masses palpable. PSYCH: Awake, able to answer simple questionsl. NEUROLOGICAL: Cranial nerves grossly intact; no facial asymmetry, power and sensation grossly intact. LYMPHATICS: No lymph nodes palpable in the axilla and neck MUSCULOSKELETAL: Evidence of arthritis especially in the hands Investigations: White count 8.5 hemoglobin 11 platelets 164 potassium 4.6 Bun 39 creatinine 1.83 Troponin I times 2 both negative EKG tracing personally reviewed by me shows paced rhythm Chest x-ray film personally reviewed by me shows cardiomegaly, lung diamond to be clear Assessment: -Chest pain reported in a patient with known coronary artery disease. Initial cardiac enzymes are negative. -Coronary artery disease a prior history of stent -Diabetes mellitus type 2 -Essential hypertension -Hyperlipidemia -Diabetic peripheral neuropathy -Peripheral arterial disease -Esophageal stricture, patient scheduled for a dilatation by Dr. Duque tomorrow -Chronic kidney disease stage III from nephrosclerosis. Patient is creatinine was 1.23 back in February 2018 Plan: Home medications resumed. Serial cardiac enzymes and place. Cardiology was consulted. Care was discussed with the patient. Past Medical History Past Medical History: Coronary Artery Disease (CAD), Chest Pain / Angina, CVA/TIA, Dementia, Diabetes Mellitus, GERD/Reflux, Hyperlipidemia, Hypertension, Memory Impairment, Myocardial Infarction ([place]), Prostate Disorder, Sleep Apnea/CPAP/BIPAP Additional Past Medical History / Comment(s): NEUROPATHY RADHA FEET, , CELLULITIS LT ANKLE AND WEEPING FROM RT SEAMAN AREA, EDEMA TO BLE, POOR CIRULATION OF LOWER LEGS "INFECTION OF ESOPHAGUS" DIFFICULTY SWALLOWING AT TIMES , RECENT OBV FOR N/V, impetego 02/12/2018 Last Myocardial Infarction Date:: 2012 History of Any Multi-Drug Resistant Organisms: MRSA, VRE Date of last positivie culture/infection: 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; 08/04/15-MRSA MDRO Source:: VRE and MRSA-Left Ankle Past Surgical History: AICD, Heart Catheterization With Stent, Joint Replacement Additional Past Surgical History / Comment(s): TOTAL LT HIP, 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, LT FOOT SKIN GRAFT, RADHA CATARACTS, EGD, Past Anesthesia/Blood Transfusion Reactions: No Reported Reaction Date of Last Stent Placement:: UNSURE-2009 Type of Cardiac Device: AICD Device Placement Date:: 2011 Past Psychological History: Anxiety, Depression Smoking Status: Former smoker Past Alcohol Use History: None Reported Past Drug Use History: None Reported - Past Family History Mother Family Medical History: CVA/TIA Medications and Allergies Home Medications Medication Instructions Recorded Confirmed Type Atorvastatin [Lipitor] 40 mg PO DAILY 10/17/13 11/21/18 History Lisinopril [Zestril] 10 mg PO DAILY 10/17/13 11/21/18 History Donepezil [Aricept] 10 mg PO HS 08/04/15 11/21/18 History sitaGLIPtin [Januvia] 50 mg PO DAILY 08/04/15 11/21/18 History Memantine HCl [Namenda] 10 mg PO BID 09/20/16 11/21/18 History Furosemide [Lasix] 40 mg PO DAILY 12/04/17 11/21/18 History Cinnamon Bark [Cinnamon] 1,000 mg PO DAILY 02/12/18 11/21/18 History Aspirin 81 mg PO DAILY 11/21/18 11/21/18 History Folic Acid 1 mg PO DAILY 11/21/18 11/21/18 History Isosorbide Mononitrate ER [Imdur] 30 mg PO DAILY 11/21/18 11/21/18 History Nitrofurantoin Monohyd/M-Cryst 100 mg PO BID 11/21/18 11/21/18 History [Macrobid] metFORMIN HCL ER [Glucophage Xr] 500 mg PO HS 11/21/18 11/21/18 History traZODone HCL 50 mg PO BID 11/21/18 11/21/18 History Allergies Allergy/AdvReac Type Severity Reaction Status Date / Time No Known Allergies Allergy Verified 11/21/18 15:17 Physical Exam Vitals: Vital Signs Temp Pulse Pulse Resp BP BP Pulse Ox 11/21/18 20:33 97.6 F 64 16 117/48 97 11/21/18 20:12 97.9 F 74 18 110/65 97 11/21/18 17:34 72 20 117/90 95 11/21/18 16:12 71 18 117/66 96 11/21/18 15:02 64 18 112/46 95 11/21/18 14:11 65 18 83/55 96 11/21/18 12:53 97.8 F 91 18 119/71 97 Intake and Output 11/21/18 11/21/18 11/22/18 14:59 22:59 06:59 Other: Voiding Method Diaper Weight 95.254 kg Results CBC & Chem 7: 11/21/18 13:21 11/21/18 13:21 Labs: Abnormal Lab Results - Last 24 Hours (Table) 11/21/18 11/21/18 11/21/18 Range/Units 13:21 13:21 21:46 RBC 3.37 L (4.30-5.90) m/uL Hgb 11.0 L (13.0-17.5) gm/dL Hct 31.6 L (39.0-53.0) % Carbon Dioxide 20 L (22-30) mmol/L BUN 39 H (9-20) mg/dL Creatinine 1.83 H (0.66-1.25) mg/dL Glucose 180 H (74-99) mg/dL POC Glucose (mg/dL) 152 H (75-99) mg/dL ALT 12 L (21-72) U/L Creatine Kinase <20 L (55-170) U/L
[2018-11-22] MEDS: SODIUM CHLORIDE 0.9% 1,000 ML IV SCH (03:16)
[2018-11-22 04:39] LABS: Cholesterol 107 mg/dL (<200); HDL Cholesterol 29 mg/dL (40-60); LDL Cholesterol,Calculated 51 mg/dL (0-99); Triglycerides 137 mg/dL (<150)
[2018-11-22 07:07] LABS: Glucose,Whole Blood 150 mg/dL (75-99)
[2018-11-22 08:20] VITALS: PULSE 52; RESP 17
[2018-11-22] MEDS ORDERED: FOLIC ACID 1 MG TAB PO SCH (09:00)
[2018-11-22] MEDS ORDERED: ATORVASTATIN 40 MG TAB PO SCH (09:00)
[2018-11-22] MEDS ORDERED: LINAGLIPTIN 5 MG TABLET PO SCH (09:00)
[2018-11-22] MEDS ORDERED: FUROSEMIDE 40 MG TAB PO SCH (09:00)
[2018-11-22] MEDS ORDERED: ASPIRIN 81 MG PO SCH (09:00)
[2018-11-22] MEDS ORDERED: ISOSORBIDE MONONITRATE ER 30 MG TAB.ER.24H PO SCH (09:00)
[2018-11-22] MEDS ORDERED: LISINOPRIL 10 MG TAB PO SCH (09:00)
[2018-11-22] MEDS ORDERED: ASPIRIN 325 MG TAB PO SCH (09:00)
[2018-11-22 10:34] VITALS: BMI 30.1
--- NOTE | 2018-11-22 11:37 | P.CRDCN ---
History of Present Illness History of present illness: This is Heike Trinidad PA-C dictating a consult on this patient The patient was interviewed and examined by me as well as by Dr. Cao Case discussed with Dr. Cao and he agrees with the plan of care IMPRESSION / ASSESSMENT: Atypical chest discomfort likely related to his esophageal stricture, troponins negative History of CAD Dyslipidemia Hypertension Sleep apnea PLAN: Continue home cardiac medications Patient is clear for discharge from a cardiac standpoint HPI Patient is a pleasant 78-year-old male with a past medical history of CAD, [place], CVA/TIA, dementia, diabetes, GERD, dyslipidemia, hypertension, sleep apnea who presented with complaints of chest discomfort. Patient has dementia and is a poor historian so his history was gathered from the chart. He apparently has esophageal strictures and was scheduled for esophageal dilation as an outpatient by Dr. Duque. He was brought in by his for evaluation of chest discomfort was possibly related to his esophageal stricture. Upon presentation his vital signs were stable. EKG showed biventricular paced rhythm. Chest x- ray was negative for acute process. His troponins were negative 3. Patient se en and examined resting comfortably in bed. Denies any complaints of chest pain or shortness of breath. ROS: Unable to obtain secondary to patient is a poor historian and has dementia EXAMINATION: Temperature 97.7F, pulse 52, respirations 17, blood pressure 129/75, oxygen saturation 98% on room air He should seen and examined resting comfortably in bed, in no acute distress Lungs clear to auscultation bilaterally, no wheezing rhonchi or crackles appreciated Heart is regular, soft systolic murmur appreciated No lower extremity edema noted, no elevated JVD No carotid bruits appreciated REVIEW OF LABS, ECG & MEDICAL DATA Chest x-ray showed no acute cardiopulmonary process EKG showed biventricular paced rhythm WBC 8.5, hemoglobin 11.0, potassium 4.6, BUNs 39, creatinine 1.83, magnesium 2.0 Troponins negative 3 Total cholesterol 107, triglycerides 137, LDL 51, HDL 29 Last echocardiogram in 2018 showed normal LV size, moderate concentric LVH, EF 50-55%, mild AR, mild aortic stenosis Past Medical History Past Medical History: Coronary Artery Disease (CAD), Chest Pain / Angina, CVA/TIA, Dementia, Diabetes Mellitus, GERD/Reflux, Hyperlipidemia, Hypertension, Memory Impairment, Myocardial Infarction ([place]), Prostate Disorder, Sleep Apnea/CPAP/BIPAP Additional Past Medical History / Comment(s): NEUROPATHY RADHA FEET, , CELLULITIS LT ANKLE, right foot decub,EDEMA TO BLE, POOR CIRULATION OF LOWER LEGS "INFECTION OF ESOPHAGUS" DIFFICULTY SWALLOWING AT TIMES , , impetego 02/12/2018 Last Myocardial Infarction Date:: 2012 History of Any Multi-Drug Resistant Organisms: MRSA, VRE Date of last positivie culture/infection: 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; 08/04/15-MRSA MDRO Source:: VRE and MRSA-Left Ankle Past Surgical History: AICD, Heart Catheterization With Stent, Joint Replacement Additional Past Surgical History / Comment(s): TOTAL LT HIP, 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, LT FOOT SKIN GRAFT, RADHA CATARACTS, EGD, Past Anesthesia/Blood Transfusion Reactions: No Reported Reaction Date of Last Stent Placement:: RE-2009 Type of Cardiac Device: AICD Device Placement Date:: 2011 Past Psychological History: Anxiety, Depression Smoking Status: Former smoker Past Alcohol Use History: None Reported Additional Past Alcohol Use History / Comment(s): STARTED SMOKING AT AGE 16 QUIT 1975 SMOKED 1 PPD Past Drug Use History: None Reported - Past Family History Mother Family Medical History: CVA/TIA Medications and Allergies Home Medications Medication Instructions Recorded Confirmed Type Atorvastatin [Lipitor] 40 mg PO DAILY 10/17/13 11/21/18 History Lisinopril [Zestril] 10 mg PO DAILY 10/17/13 11/21/18 History Donepezil [Aricept] 10 mg PO HS 08/04/15 11/21/18 History sitaGLIPtin [Januvia] 50 mg PO DAILY 08/04/15 11/21/18 History Memantine HCl [Namenda] 10 mg PO BID 09/20/16 11/21/18 History Furosemide [Lasix] 40 mg PO DAILY 12/04/17 11/21/18 History Cinnamon Bark [Cinnamon] 1,000 mg PO DAILY 02/12/18 11/21/18 History Aspirin 81 mg PO DAILY 11/21/18 11/21/18 History Folic Acid 1 mg PO DAILY 11/21/18 11/21/18 History Isosorbide Mononitrate ER [Imdur] 30 mg PO DAILY 11/21/18 11/21/18 History Nitrofurantoin Monohyd/M-Cryst 100 mg PO BID 11/21/18 11/21/18 History [Macrobid] metFORMIN HCL ER [Glucophage Xr] 500 mg PO HS 11/21/18 11/21/18 History traZODone HCL 50 mg PO BID 11/21/18 11/21/18 History Allergies Allergy/AdvReac Type Severity Reaction Status Date / Time No Known Allergies Allergy Verified 11/21/18 15:17 Physical Exam Vitals: Vital Signs Temp Pulse Pulse Resp BP BP Pulse Ox 11/22/18 08:00 97.7 F 52 L 17 129/75 98 11/22/18 04:00 97.6 F 54 L 16 127/48 96 11/22/18 00:00 97.5 F L 68 18 94/54 95 11/21/18 20:33 97.6 F 64 16 117/48 97 11/21/18 20:12 97.9 F 74 18 110/65 97 11/21/18 19:48 97.6 F 54 L 16 127/48 96 11/21/18 17:34 72 20 117/90 95 11/21/18 16:12 71 18 117/66 96 11/21/18 15:02 64 18 112/46 95 11/21/18 14:11 65 18 83/55 96 11/21/18 12:53 97.8 F 91 18 119/71 97 Intake and Output 11/21/18 11/22/18 11/22/18 22:59 06:59 14:59 Output Total 500 Balance -500 Output: Urine 500 Other: Voiding Method Diaper Diaper Diaper # Voids 2 1 Results 11/21/18 13:21 11/21/18 13:21 Cardiac Enzymes 11/21/18 11/21/18 11/21/18 Range/Units 13:21 13:21 19:53 AST 17 (17-59) U/L Troponin I <0.012 <0.012 (0.000-0.034) ng/mL 11/22/18 Range/Units 01:27 AST (17-59) U/L Troponin I <0.012 (0.000-0.034) ng/mL Coagulation 11/21/18 Range/Units 13:21 PT 9.6 (9.0-12.0) sec APTT 23.6 (22.0-30.0) sec Lipids 11/21/18 Range/Units 13:21 Triglycerides 137 (<150) mg/dL Cholesterol 107 (<200) mg/dL HDL Cholesterol 29 L (40-60) mg/dL CBC 11/21/18 Range/Units 13:21 WBC 8.5 (3.8-10.6) k/uL RBC 3.37 L (4.30-5.90) m/uL Hgb 11.0 L (13.0-17.5) gm/dL Hct 31.6 L (39.0-53.0) % Plt Count 164 (150-450) k/uL Comprehensive Metabolic Panel 11/21/18 Range/Units 13:21 Sodium 139 (137-145) mmol/L Potassium 4.6 (3.5-5.1) mmol/L Chloride 106 (98-107) mmol/L Carbon Dioxide 20 L (22-30) mmol/L BUN 39 H (9-20) mg/dL Creatinine 1.83 H (0.66-1.25) mg/dL Glucose 180 H (74-99) mg/dL Calcium 9.5 (8.4-10.2) mg/dL AST 17 (17-59) U/L ALT 12 L (21-72) U/L Alkaline Phosphatase 114 (38-126) U/L Total Protein 7.2 (6.3-8.2) g/dL Albumin 3.9 (3.5-5.0) g/dL Current Medications Generic Name Dose Route Start Last Admin Trade Name Freq PRN Reason Stop Dose Admin Aspirin 81 mg 11/22/18 09:00 Aspirin PO DAILY [facility] Atorvastatin Calcium 40 mg 11/22/18 09:00 Lipitor PO DAILY [facility] Donepezil HCl 10 mg 11/21/18 21:30 11/21/18 21:48 Aricept PO 10 mg HS MORALES Administration Folic Acid 1 mg 11/22/18 09:00 Folic Acid PO DAILY [facility] Furosemide 40 mg 11/22/18 09:00 Lasix PO DAILY [facility] Sodium Chloride 1,000 mls @ 100 mls/hr 11/21/18 14:30 11/22/18 03:16 Saline 0.9% IV Not Given .Q10H [facility] Isosorbide Mononitrate 30 mg 11/22/18 09:00 Imdur PO DAILY [facility] Linagliptin 5 mg 11/22/18 09:00 Tradjenta PO DAILY [facility] Lisinopril 10 mg 11/22/18 09:00 Zestril PO DAILY [facility] Memantine 10 mg 11/21/18 21:30 11/21/18 21:48 Namenda PO 10 mg BID MORALES Administration Metformin HCl 500 mg 11/21/18 21:30 11/21/18 21:48 Glucophage PO 500 mg HS MORALES Administration Morphine Sulfate 4 mg 11/21/18 17:49 Morphine Sulfate (Inj) IVP Q4HR PRN Pain Nitroglycerin 0.4 mg 11/21/18 14:28 Nitrostat SUBLINGUAL Q5M PRN Chest Pain Trazodone HCl 50 mg 11/21/18 21:30 11/21/18 21:48 Desyrel PO 50 mg BID MORALES Administration Intake and Output 11/21/18 11/22/18 11/22/18 22:59 06:59 14:59 Output Total 500 Balance -500 Output: Urine 500 Other: Voiding Method Diaper Diaper Diaper # Voids 2 1 11/21/18 13:21 11/21/18 13:21
[2018-11-22 12:05] LABS: Glucose,Whole Blood 126 mg/dL (75-99)
[2018-11-22 12:18] VITALS: BP 130/53; TEMP 97.8
[2018-11-22] MEDS: MEMANTINE 10 MG TAB PO SCH (12:36)
[2018-11-22] MEDS: traZODone HCL 50 MG TAB PO SCH (12:36)
--- NOTE | 2018-11-22 14:47 | P.GSCN ---
<Denice Bhakta A - Last Filed: 11/22/18 14:45> History of Present Illness Consult date: 11/22/18 Reason for Consult: known Requesting physician: Willard Ann History of present illness: CHIEF COMPLAINT: patient known to surgery service HISTORY OF PRESENT ILLNESS: 78-year-old male who presented to the emergency room with a chief complaint of chest pain. General surgery was consu lted as patient is known to surgical services due to esophageal stenosis with previous dilations. Patient was seen and examined this morning at the bedside. He reports some difficulty with water but denies difficulty with any other consistencies. He states his dysphagia has been very well controlled lately. EGD was discussed with the patient who states he does not feel he needs it at this time. PAST MEDICAL HISTORY: See list. PAST SURGICAL HISTORY: See list. MEDICATIONS: See list. ALLERGIES: See list. SOCIAL HISTORY: No illicit drug use. REVIEW OF SYSTEMS: CONSTITUTIONAL: Denies fever or chills. HEENT: Denies blurred vision, vision changes, or eye pain. Denies hemoptysis . history of dysphagia requiring esophageal dilation ENDOCRINE: Denies heat or cold intolerance. CARDIOVASCULAR: Denies chest pain or pressure. RESPIRATORY: No shortness of breath. GASTROINTESTINAL: see HPI for pertinent findings. NEURO: Denies history of seizures. History of dementia. PSYCH: No depression or suicidal ideation HEMATOLOGIC: Denies bleeding disorders. LYMPHATIC: The patient denies any lumps and bumps around the neck. GENITOURINARY: Denies any blood in urine or increased urinary frequency. MUSCULOSKELETAL: Denies myalgias. Denies joint swelling. Denies decreased range of motion beyond patients baseline. SKIN: Denies pruitis. Denies rash. PHYSICAL EXAM: VITAL SIGNS: Currently stable. GENERAL: Well-developed in no acute distress. HEENT: No sclera icterus. Extraocular movements grossly intact. Moist buccal mucosa. Head is atraumatic, normocephalic. Hears conversational speech. No nasal drainage. NECK: Supple without lymphadenopathy. CHEST: Non-labored respirations and equal bilateral excursions. CARDIOVASCULAR: Regular rate with regular rhythm. Palpable 2+ radial pulses. ABDOMEN: Soft. Nondistended. Nontender. MUSCULOSKELETAL: No clubbing, cyanosis or edema. NEUROLOGIC: No focal or lateralizing signs. Cranial nerves II through XII grossly intact. PSYCH: Appropriate affect. Alert and oriented to person, place and time. SKIN: Well perfused. Good skin turgor. LABORATORY DATA: WBC 8.5. Hemoglobin 11.0. Potassium 4.6. BUN 39. Crit and 1.3. Glucose 180. Bilirubin 0.4. AST 17. ALT 12. IMAGING: Chest x-ray completed in the emergency room was negative for an acute process. ASSESSMENT: 1. Chest pain, acute coronary syndrome ruled out per cardiology 2. History of dysphagia 3. History of esophageal stricture requiring EGD with dilation PLAN: 1. Patient denies worsening dysphagia and states he does not feel he needs a dilation at this time 2. Consult speech therapy for swallow eval 3. May be discharged home today from a surgical standpoint Nurse practitioner note has been reviewed by physician. Signing provider agrees with the documented findings, assessment, and plan of care. Past Medical History Past Medical History: Coronary Artery Disease (CAD), Chest Pain / Angina, CVA/TIA, Dementia, Diabetes Mellitus, GERD/Reflux, Hyperlipidemia, Hypertension, Memory Impairment, Myocardial Infarction ([place]), Prostate Disorder, Sleep Apnea/ CPAP/BIPAP Additional Past Medical History / Comment(s): NEUROPATHY RADHA FEET, , CELLULITIS LT ANKLE, right foot decub,EDEMA TO BLE, POOR CIRULATION OF LOWER LEGS "INFECTION OF ESOPHAGUS" DIFFICULTY SWALLOWING AT TIMES , , impetego 02/12/2018 Last Myocardial Infarction Date:: 2012 History of Any Multi-Drug Resistant Organisms: MRSA, VRE Year Discovered:: 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; 08/04/15-MRSA MDRO Source:: VRE and MRSA-Left Ankle Past Surgical History: AICD, Heart Catheterization With Stent, Joint Replacement Additional Past Surgical History / Comment(s): TOTAL LT HIP, 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, LT FOOT SKIN GRAFT, RADHA CATARACTS, EGD, Past Anesthesia/Blood Transfusion Reactions: No Reported Reaction Date of Last Stent Placement:: UNSURE-2009 Type of Cardiac Device: AICD Device Placement Date:: 2011 Past Psychological History: Anxiety, Depression Smoking Status: Former smoker Past Alcohol Use History: None Reported Additional Past Alcohol Use History / Comment(s): STARTED SMOKING AT AGE 16 QUIT 1975 SMOKED 1 PPD Past Drug Use History: None Reported - Past Family History Mother Family Medical History: CVA/TIA Medications and Allergies Home Medications Medication Instructions Recorded Confirmed Type Atorvastatin [Lipitor] 40 mg PO DAILY 10/17/13 11/21/18 History Lisinopril [Zestril] 10 mg PO DAILY 10/17/13 11/21/18 History Donepezil [Aricept] 10 mg PO HS 08/04/15 11/21/18 History sitaGLIPtin [Januvia] 50 mg PO DAILY 08/04/15 11/21/18 History Memantine HCl [Namenda] 10 mg PO BID 09/20/16 11/21/18 History Furosemide [Lasix] 40 mg PO DAILY 12/04/17 11/21/18 History Cinnamon Bark [Cinnamon] 1,000 mg PO DAILY 02/12/18 11/21/18 History Aspirin 81 mg PO DAILY 11/21/18 11/21/18 History Folic Acid 1 mg PO DAILY 11/21/18 11/21/18 History Isosorbide Mononitrate ER [Imdur] 30 mg PO DAILY 11/21/18 11/21/18 History Nitrofurantoin Monohyd/M-Cryst 100 mg PO BID 11/21/18 11/21/18 History [Macrobid] metFORMIN HCL ER [Glucophage Xr] 500 mg PO HS 11/21/18 11/21/18 History traZODone HCL 50 mg PO BID 11/21/18 11/21/18 History Allergies Allergy/AdvReac Type Severity Reaction Status Date / Time No Known Allergies Allergy Verified 11/21/18 15:17 Surgical - Exam Vital Signs Temp Pulse Resp BP Pulse Ox 97.8 F 91 18 119/71 97 11/21/18 12:53 11/21/18 12:53 11/21/18 12:53 11/21/18 12:53 11/21/18 12:53 Results - Labs 11/21/18 13:21 11/21/18 13:21 Abnormal Lab Results - Last 24 Hours (Table) 11/21/18 11/21/18 11/22/18 Range/Units 13:21 21:46 07:06 POC Glucose (mg/dL) 152 H 150 H (75-99) mg/dL HDL Cholesterol 29 L (40-60) mg/dL 11/22/18 Range/Units 12:03 POC Glucose (mg/dL) 126 H (75-99) mg/dL HDL Cholesterol (40-60) mg/dL Diabetes panel 11/21/18 Range/Units 13:21 Triglycerides 137 (<150) mg/dL HDL Cholesterol 29 L (40-60) mg/dL Assessment and Plan (1) Chest pain Status: Acute Code(s): R07.9 - CHEST PAIN, UNSPECIFIED SNOMED Code(s): 70220414 (2) Dysphagia Status: Acute Code(s): R13.10 - DYSPHAGIA, UNSPECIFIED SNOMED Code(s): 81892913 (3) Esophageal stricture Status: Acute Code(s): K22.2 - ESOPHAGEAL OBSTRUCTION SNOMED Code(s): 45732858 <Aysha White - Last Filed: 11/24/18 22:26> History of Present Illness History of present illness: Patient passed swallow study. Continue with pureed diet. Stable for discharge from surgical standpoint. Surgical - Exam Vital Signs Temp Pulse Resp BP Pulse Ox 97.8 F 91 18 119/71 97 11/21/18 12:53 11/21/18 12:53 11/21/18 12:53 11/21/18 12:53 11/21/18 12:53 Results - Labs 11/21/18 13:21 11/21/18 13:21
--- NOTE | 2018-11-23 22:28 | P.DS ---
Providers Date of admission: 11/21/18 14:28 Expected date of discharge: 11/22/18 Attending physician: Jr Fernández Consults: 11/21/18 14:28 Consult Physician Routine Consulting Provider: Aysha White Consult Reason/Comments: known Do you want consulting provider notified?: Yes Consult Physician Urgent Consulting Provider: Jes Berger Consult Reason/Comments: cp Do you want consulting provider notified?: Yes Primary care physician: [place] Hospital Course: Hospital course: This is a [address] Maynard. Chronic stable medical conditions include coronary artery disease, GERD, diabetes, hypertension, hyperlipidemia, sleep apnea, peripheral neuropathy, essential strictures. In fact patient has a scheduled esophageal dilatation by Dr. Duque tomorrow. Patient is brought to the ER by his . Patient himself is a poor historian and denies any chest pain currently. But he was born in the ER for chest pain defined as being continuous. Patient unable to qualify the pain. There is no shortness of breath. Denies any perspiration. Or palpitation. Patient had no further chest pain year. Seen by cardiology. Cleared. Patient also been having a pured diet at home. Some trouble swallowing. Also seen by Dr. Duque from surgery. Patient did have a swallow eval. At the bedside but the speech therapist. No evidence of aspiration. Told to continue the current diet. It may be noted that patient was scheduled for EGD by Dr. Duque. That has been postponed for now. This was discussed with the in detail. Questions were answered. Consultations: Dr. Federica Duque from general surgery Dr. Gilmar Bragg from cardiology Physical examination: VITAL SIGNS: 97.8, 52, 17, 1:30/73, 97% room air GENERAL: BMI 30.1, laying in bed awake. EYES: Pupils equal. Conjunctiva normal. HEENT: External appearance of nose and ears normal, oral cavity grossly normal. NECK: JVD not raised; masses not palpable. HEART: First and second heart sounds are normal; no edema. LUNGS: Respiratory rate normal; clear to auscultation. ABDOMEN: Soft, nontender, liver spleen not palpable, no masses palpable. PSYCH: Awake, able to answer simple questionsl. Investigations: White count 8.5 hemoglobin 11 platelets 164 potassium 4.6 Bun 39 creatinine 1.83 Troponin I times 3-negative EKG tracing personally reviewed by me shows paced rhythm Chest x-ray film personally reviewed by me shows cardiomegaly, lung diamond to be clear Assessment: -Chest pain reported in a patient with known coronary artery disease. Initial cardiac enzymes are negative. Could be musculoskeletal -Coronary artery disease a prior history of stent -Diabetes mellitus type 2 -Essential hypertension -Hyperlipidemia -Diabetic peripheral neuropathy -Peripheral arterial disease -Esophageal stricture, patient scheduled for a dilatation by Dr. Duque tomorrow -Chronic kidney disease stage III from nephrosclerosis. Patient is creatinine was 1.23 back in February 2018 Disposition: Home Patient Condition at Discharge: Stable Plan - Discharge Summary Discharge Rx Participant: No New Discharge Prescriptions: Continue Lisinopril [Zestril] 10 mg PO DAILY Atorvastatin [Lipitor] 40 mg PO DAILY sitaGLIPtin [Januvia] 50 mg PO DAILY Donepezil [Aricept] 10 mg PO HS Memantine HCl [Namenda] 10 mg PO BID Furosemide [Lasix] 40 mg PO DAILY Cinnamon Bark [Cinnamon] 1,000 mg PO DAILY Aspirin 81 mg PO DAILY Folic Acid 1 mg PO DAILY Isosorbide Mononitrate ER [Imdur] 30 mg PO DAILY metFORMIN HCL ER [Glucophage Xr] 500 mg PO HS Nitrofurantoin Monohyd/M-Cryst [Macrobid] 100 mg PO BID traZODone HCL 50 mg PO BID Discharge Medication List Atorvastatin [Lipitor] 40 mg PO DAILY 10/17/13 [History] Lisinopril [Zestril] 10 mg PO DAILY 10/17/13 [History] Donepezil [Aricept] 10 mg PO HS 08/04/15 [History] sitaGLIPtin [Januvia] 50 mg PO DAILY 08/04/15 [History] Memantine HCl [Namenda] 10 mg PO BID 09/20/16 [History] Furosemide [Lasix] 40 mg PO DAILY 12/04/17 [History] Cinnamon Bark [Cinnamon] 1,000 mg PO DAILY 02/12/18 [History] Aspirin 81 mg PO DAILY 11/21/18 [History] Folic Acid 1 mg PO DAILY 11/21/18 [History] Isosorbide Mononitrate ER [Imdur] 30 mg PO DAILY 11/21/18 [History] Nitrofurantoin Monohyd/M-Cryst [Macrobid] 100 mg PO BID 11/21/18 [History] metFORMIN HCL ER [Glucophage Xr] 500 mg PO HS 11/21/18 [History] traZODone HCL 50 mg PO BID 11/21/18 [History] Follow up Appointment(s)/Referral(s): cardiology, [Other] - 1 Week Aysha White MD [STAFF PHYSICIAN] - 2 Weeks Cas Madden MD [Primary Care Provider] - 1-2 days Discharge Disposition: HOME SELF-CARE
== END 2018-11-22 15:06 | disposition home or self-care (01) ==
LOC: EC 12:50 → 1SOBS 14:28
PROVIDERS: ADMIT Hospitalist; ATTEND Hospitalist
DX: R07.89 Other chest pain (principal); I25.10 Atherosclerotic heart disease of native coronary artery without angina pectoris; Z95.5 Presence of coronary angioplasty implant and graft; E78.5 Hyperlipidemia, unspecified; E11.51 Type 2 diabetes mellitus with diabetic peripheral angiopathy without gangrene; E11.42 Type 2 diabetes mellitus with diabetic polyneuropathy; E11.22 Type 2 diabetes mellitus with diabetic chronic kidney disease; I12.9 Hypertensive chronic kidney disease with stage 1 through stage 4 chronic kidney disease, or unspecified chronic kidney disease; N18.3 Chronic kidney disease, stage 3 (moderate); K22.2 Esophageal obstruction; R11.0 Nausea; Z79.899 Other long term (current) drug therapy; Z79.84 Long term (current) use of oral hypoglycemic drugs; Z79.82 Long term (current) use of aspirin; Z86.73 Personal history of transient ischemic attack (TIA), and cerebral infarction without residual deficits; F03.90 Unspecified dementia, unspecified severity, without behavioral disturbance, psychotic disturbance, mood disturbance, and anxiety; K21.9 Gastro-esophageal reflux disease without esophagitis; R41.3 Other amnesia; G47.30 Sleep apnea, unspecified; Z99.89 Dependence on other enabling machines and devices; Z86.19 Personal history of other infectious and parasitic diseases; Z86.14 Personal history of Methicillin resistant Staphylococcus aureus infection; Z95.810 Presence of automatic (implantable) cardiac defibrillator; Z89.411 Acquired absence of right great toe; Z89.421 Acquired absence of other right toe(s); F41.9 Anxiety disorder, unspecified; F32.9 Major depressive disorder, single episode, unspecified; Z87.891 Personal history of nicotine dependence; Z82.3 Family history of stroke
CPT/HCPCS: 96374; 99285; 36415; 93005; 92610; 83880; 80061; 80053; 82550; 83690; 83735; 84484 ×2; 85025; 85610; 85730; 71046; G0378 ×2; J2270

== ENCOUNTER 2019-12-18 07:31 | Day surgery (SDC) | payer MEDICARE ==
[2019-12-16 10:27] VITALS: BMI 24.0
--- NOTE | 2019-12-18 04:31 | P.GSHP ---
History of Present Illness H&P Date: 12/18/19 CHIEF COMPLAINT: GERD HISTORY OF PRESENT ILLNESS: The patient is a 79-year-old male who presents reports gastroesophageal reflux disease. Upper endoscopy was offered for further evaluation and management. PAST MEDICAL HISTORY: Please see list. PAST SURGICAL HISTORY: Please see list. MEDICATIONS: Please see list. ALLERGIES: Please see list. SOCIAL HISTORY: No illicit drug use FAMILY HISTORY: No reports of Crohn disease or ulcerative colitis. REVIEW OF ORGAN SYSTEMS: CONSTITUTIONAL: No reports of fevers or chills. GI: Denies any blood in stools or constipation. PHYSICAL EXAM: VITAL SIGNS: Stable GENERAL: Well-developed and pleasant in no acute distress. HEENT: No scleral icterus. Extraocular movements grossly intact. Moist buccal mucosa. NECK: Supple without lymphadenopathy. CHEST: Unlabored respirations. Equal bilateral excursions. CARDIOVASCULAR: Regular rate and rhythm. Distal 2+ pulses. ABDOMEN: Soft, nondistended. MUSCULOSKELETAL: No clubbing, cyanosis, or edema. ASSESSMENT: 1. Gastroesophageal reflux disease PLAN: 1. Recommend proceeding with an upper endoscopy Past Medical History Past Medical History: Coronary Artery Disease (CAD), Chest Pain / Angina, CVA/TIA, Dementia, Diabetes Mellitus, GERD/Reflux, Hyperlipidemia, Hypertension, Memory Impairment, Myocardial Infarction ([place]), Prostate Disorder, Renal Disease, Sleep Apnea/CPAP/BIPAP Additional Past Medical History / Comment(s): NEUROPATHY RADHA FEET, , CELLULITIS LT ANKLE, right foot decub,EDEMA TO BLE, POOR CIRULATION OF LOWER LEGS "INFECTION OF ESOPHAGUS" DIFFICULTY SWALLOWING AT TIMES, impetigo 02/12/2018, Chronic Kidney disease stage 3 Last Myocardial Infarction Date:: 2012 History of Any Multi-Drug Resistant Organisms: MRSA, VRE Date of last positivie culture/infection: 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; 09/19/19-MRSA MDRO Source:: VRE and MRSA-Left Ankle Past Surgical History: AICD, Heart Catheterization With Stent, Joint Replacement Additional Past Surgical History / Comment(s): TOTAL LT HIP, 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, LT FOOT SKIN GRAFT, RADHA CATARACTS, EGD, Past Anesthesia/Blood Transfusion Reactions: No Reported Reaction Date of Last Stent Placement:: RE-2009 Type of Cardiac Device: AICD Device Placement Date:: 2011 Smoking Status: Former smoker - Past Family History Mother Family Medical History: CVA/TIA Medications and Allergies Home Medications Medication Instructions Recorded Confirmed Type Atorvastatin [Lipitor] 20 mg PO HS 10/17/13 12/16/19 History lisinopriL [Zestril] 5 mg PO HS 10/17/13 12/16/19 History Memantine HCl [Namenda] 10 mg PO BID 09/20/16 12/16/19 History metFORMIN HCL ER [Glucophage Xr] 500 mg PO BID 11/21/18 12/16/19 History traZODone HCL 100 mg PO HS 11/21/18 12/16/19 History Acetaminophen [Tylenol] 2 tab PO Q6H PRN 12/16/19 12/16/19 History Aspirin [Adult Low Dose Aspirin EC] 81 mg PO DAILY 12/16/19 12/16/19 History Ferrous Sulfate [Feosol] 325 mg PO DAILY 12/16/19 12/16/19 History Glucerna Shake 1 can PO TID-W/MEALS 12/16/19 12/16/19 History Menthol [Biofreeze] 1 applic TOPICAL BID 12/16/19 12/16/19 History Milk Of Magnesia 2,400 mg PO DAILY PRN 12/16/19 12/16/19 History Prostat Awc 30 ml PO HS 12/16/19 12/16/19 History Sertraline [Zoloft] 75 mg PO DAILY 12/16/19 12/16/19 History Allergies Allergy/AdvReac Type Severity Reaction Status Date / Time No Known Allergies Allergy Verified 12/16/19 10:24
[~2019-12-18 07:31] MED LIST changes: -LIDOCAINE 1% 20 ML VIAL (10MG/ML) FOR IV START INTRADERMA PRN
[2019-12-18 08:16] VITALS: TEMP 97.7
[2019-12-18] MEDS ORDERED: LIDOCAINE 1% (10MG/ML) FOR IV START INTRADERMA ONE (08:18)
[2019-12-18] MEDS ORDERED: LIDOCAINE 1% INJ 10MG/ML (20 ML MDV) ONE (08:19)
[2019-12-18] MEDS ORDERED: PROPOFOL 10 MG/ML 20 ML VIAL IV ONE (08:19)
[2019-12-18 08:21] LABS: Glucose,Whole Blood 111 mg/dL (75-99)
--- NOTE | 2019-12-18 08:50 | P.PCN ---
Date of Procedure: 12/18/19 Description of Procedure: PREOPERATIVE DIAGNOSIS: Dysphagia Presbyesophagus Unintentional weight loss Esophageal dysmotility POSTOPERATIVE DIAGNOSIS: Dysphagia Presbyesophagus Unintentional weight loss Esophageal dysmotility Gastritis recent bleed OPERATION: Esophagogastroduodenoscopy rigid English dilator 57 Fr SURGEON: Aysha White MD ANESTHESIA: MAC. INDICATIONS: The patient is a 79-year-old male who presents with history of dysphagia, esophageal dysmotility and a unintentional weight loss. Upper endoscopy was offered for further diagnostic evaluation and treatment. Informed consent was obtained. DESCRIPTION: The patient was brought into the endoscopy suite and laid in the left lateral decubitus position. An Olympus gastroscope was carefully passed along the posterior oropharynx into the esophagus where moderate tertiary contractions creating a functional stenosis. The stomach was entered with gastritis of my bleeding. A guidewire was placed through the scope into the stomach. The scope was removed. A 57-Indonesian rigid dilator was placed to 50 cm from the incisors. The dilator was left in place for 1 minute. The dilator and guidewire were removed. The scope was reentered along the stomach whereby pre-existing esophageal stricture resolved. The diaphragmatic hiatus was found at 40 cm. The squamocolumnar junction was found at 40 cm from the incisors. No full-thickness injury was found along the mucosa. The stomach was desufflated. The patient tolerated the procedure well. FINDINGS: Superficial gastritis Esophageal dysmotility Tertiary esophageal contractions RECOMMENDATIONS: 1. Upper endoscopy as needed Plan - Discharge Summary Discharge Rx Participant: No New Discharge Prescriptions: Continue lisinopriL [Zestril] 5 mg PO HS Atorvastatin [Lipitor] 20 mg PO HS Memantine HCl [Namenda] 10 mg PO BID metFORMIN HCL ER [Glucophage Xr] 500 mg PO BID traZODone HCL 100 mg PO HS Sertraline [Zoloft] 75 mg PO DAILY Acetaminophen [Tylenol] 2 tab PO Q6H PRN PRN Reason: Pain Menthol [Biofreeze] 1 applic TOPICAL BID Ferrous Sulfate [Iron (65 MG Elemental)] 325 mg PO DAILY Aspirin [Adult Low Dose Aspirin EC] 81 mg PO DAILY Glucerna Shake 1 can PO TID-W/MEALS Prostat Awc 30 ml PO HS Milk Of Magnesia 2,400 mg PO DAILY PRN PRN Reason: Constipation Discharge Medication List Atorvastatin [Lipitor] 20 mg PO HS 10/17/13 [History] lisinopriL [Zestril] 5 mg PO HS 10/17/13 [History] Memantine HCl [Namenda] 10 mg PO BID 09/20/16 [History] metFORMIN HCL ER [Glucophage Xr] 500 mg PO BID 11/21/18 [History] traZODone HCL 100 mg PO HS 11/21/18 [History] Acetaminophen [Tylenol] 2 tab PO Q6H PRN 12/16/19 [History] Aspirin [Adult Low Dose Aspirin EC] 81 mg PO DAILY 12/16/19 [History] Ferrous Sulfate [Iron (65 MG Elemental)] 325 mg PO DAILY 12/16/19 [History] Glucerna Shake 1 can PO TID-W/MEALS 12/16/19 [History] Menthol [Biofreeze] 1 applic TOPICAL BID 12/16/19 [History] Milk Of Magnesia 2,400 mg PO DAILY PRN 12/16/19 [History] Prostat Awc 30 ml PO HS 12/16/19 [History] Sertraline [Zoloft] 75 mg PO DAILY 12/16/19 [History] Follow up Appointment(s)/Referral(s): Aysha White MD [STAFF PHYSICIAN] - As Needed Patient Instructions/Handouts: Esophageal Dilation (DC) Activity/Diet/Wound Care/Special Instructions: Recommend pured/rounded diet for esophageal dysmotility Discharge Disposition: HOME SELF-CARE
[2019-12-18 09:04] VITALS: RESP 18
[2019-12-18 09:15] LABS: Glucose,Whole Blood 117 mg/dL (75-99)
[2019-12-18 09:33] VITALS: BP 157/71; PULSE 50
== END 2019-12-18 10:04 | disposition home or self-care (01) ==
LOC: ORWHC2ENDO 07:31
PROVIDERS: ATTEND Surgery Plastic and Reconstructive Surgery
DX: K22.4 Dyskinesia of esophagus (principal); K22.8 Other specified diseases of esophagus; K29.70 Gastritis, unspecified, without bleeding; I25.10 Atherosclerotic heart disease of native coronary artery without angina pectoris; I10 Essential (primary) hypertension; E78.5 Hyperlipidemia, unspecified; Z95.5 Presence of coronary angioplasty implant and graft; Z95.810 Presence of automatic (implantable) cardiac defibrillator; G47.33 Obstructive sleep apnea (adult) (pediatric); Z99.89 Dependence on other enabling machines and devices; E11.9 Type 2 diabetes mellitus without complications; N18.3 Chronic kidney disease, stage 3 (moderate); E11.22 Type 2 diabetes mellitus with diabetic chronic kidney disease; I12.9 Hypertensive chronic kidney disease with stage 1 through stage 4 chronic kidney disease, or unspecified chronic kidney disease; E11.42 Type 2 diabetes mellitus with diabetic polyneuropathy; Z79.82 Long term (current) use of aspirin; Z79.84 Long term (current) use of oral hypoglycemic drugs; Z79.899 Other long term (current) drug therapy; Z96.642 Presence of left artificial hip joint; Z98.890 Other specified postprocedural states
CPT/HCPCS: 43245; J2001; J2704; 43249

== ENCOUNTER 2020-05-09 01:52 | Inpatient (IN) | payer MEDICARE ==
[2020-05-09 02:22] LABS: HCT 32.4 % (39.0-53.0); HGB 10.8 gm/dL (13.0-17.5); MCH 32.5 pg (25.0-35.0); MCHC 33.2 g/dL (31.0-37.0); Mean Platelet Volume 8.2; Platelet Count 336 k/uL (150-450); Poikilocytosis Slight; RBC 3.31 m/uL (4.30-5.90); RDW 14.4 % (11.5-15.5); WBC 9.7 k/uL (3.8-10.6)
--- NOTE | 2020-05-09 02:31 | XR ---
EXAM: XR Chest, 1 View CLINICAL HISTORY: ITS.REASON XR Reason: difficulty breathing TECHNIQUE: Frontal view of the chest. COMPARISON: 03/03/2018 FINDINGS: Lungs: No consolidation or mass. Pleural space: No acute findings Heart: Mild cardiomegaly. Pacer device is in place. Bones/joints: No acute findings. IMPRESSION: No acute cardiopulmonary process.
[2020-05-09 02:38] LABS: Band Neutrophils % 22 %; INR 0.9 (<1.2); Lymphocytes # (M) 1.07 k/uL (1.0-4.8); Metamyelocytes % 1 %; Monocytes # (M) 0.49 k/uL (0-1.0); Neutrophils % (M) 61 %; Nucleated Red Blood Cells 0 /100 WBC (0-0); Partial Thromboplastin Time 22.7 sec (22.0-30.0); Prothrombin Time 10.2 sec (9.0-12.0); Total Cells Counted 200; Toxic Granulation Present; Toxic Vacuolation Present
[2020-05-09 02:39] LABS: ALT 30 U/L (4-49); AST 26 U/L (17-59); African American GFR (CKD) >90 (>60 ml/min/1.73 sqM); Alkaline Phosphatase 105 U/L (38-126); Anion Gap 7 mmol/L; Blood Urea Nitrogen 35 mg/dL (9-20); Carbon Dioxide 26 mmol/L (22-30); Chloride 118 mmol/L (98-107); Glucose 225 mg/dL (74-99); Non-African American GFR(CKD) 82 (>60 ml/min/1.73 sqM); Potassium 3.8 mmol/L (3.5-5.1); Sodium 151 mmol/L (137-145); Total Bilirubin 0.6 mg/dL (0.2-1.3); Total Protein 6.4 g/dL (6.3-8.2)
[2020-05-09 02:40] LABS: Polychromasia Present
[2020-05-09 02:44] LABS: D-Dimer 2.22 mg/L FEU (<0.60)
[2020-05-09] MEDS ORDERED: SODIUM CHLORIDE 0.9% 1,000 ML IV STA (02:48)
[2020-05-09] MEDS ORDERED: SODIUM CHLORIDE 0.9% 1,000 ML IV ONE (02:48)
--- NOTE | 2020-05-09 03:48 | CT ---
EXAM: CT Angiography Chest With Intravenous Contrast CLINICAL HISTORY: ITS.REASON CT Reason: dyspnea. possible PE TECHNIQUE: Axial computed tomographic angiography images of the chest with intravenous contrast. CTDI is 25.535 mGy and DLP is 891.45 mGy-cm. This CT exam was performed using one or more of the following dose reduction techniques: automated exposure control, adjustment of the mA and/or kV according to patient size, and/or use of iterative reconstruction technique. MIP reconstructed images were created and reviewed. COMPARISON: 03/03/2018 FINDINGS: Pulmonary arteries: No filling defects. Aorta: No thoracic aortic aneurysm. Lungs: Ill-defined groundglass opacities in the left upper lobe and bilateral lower lobe patchy opacities. Pleural space: No pneumothorax. No effusion. Heart: No cardiomegaly. Pericardial effusion measuring 1 cm in thickness. Bones/joints: No acute fracture or dislocation. Chronic minimal superior endplate wedging of T5. Soft tissues: Patulous esophagus with reflux into the mid esophagus.. Lymph nodes: No enlarged lymph nodes. IMPRESSION: 1. No pulmonary embolism. 2. Pericardial effusion measuring 1 cm in thickness. 3. Peripherally based groundglass opacities in the left upper lobe. Correlate with infectious process or edema. 4. Patulous esophagus with reflux into the mid esophagus.. 5. Lower lobe patchy opacities likely aspiration.
--- NOTE | 2020-05-09 03:53 | CT ---
EXAM: CT Abdomen and Pelvis With Intravenous Contrast CLINICAL HISTORY: ITS.REASON CT Reason: abd pain TECHNIQUE: Axial computed tomography images of the abdomen and pelvis with intravenous contrast. CTDI is 25.535 mGy and DLP is 891.45 mGy-cm. This CT exam was performed using one or more of the following dose reduction techniques: automated exposure control, adjustment of the mA and/or kV according to patient size, and/or use of iterative reconstruction technique. COMPARISON: No relevant prior studies available. FINDINGS: ABDOMEN: Liver: Tiny cyst. Gallbladder and bile ducts: Unremarkable. Pancreas: Unremarkable. Spleen: Unremarkable. Adrenals: Unremarkable. Kidneys and ureters: No hydronephrosis. Cysts. Stomach and bowel: No bowel obstruction. No bowel wall thickening. Severe stool distention of the rectum. PELVIS: Appendix: No evidence of appendicitis. Bladder: Moderate distention of the bladder with mild wall thickening. Reproductive: Mildly enlarged. ABDOMEN and PELVIS: Intraperitoneal space: Trace ascites. Bones/joints: No acute fractures. Grade 1 anterolisthesis of L5 on S1 from L5 pars defect on the left side. Left total hip arthroplasty hardware. Soft tissues: Diffuse soft tissue stranding. Vasculature: No abdominal aortic aneurysm. Lymph nodes: No enlarged lymph nodes. IMPRESSION: 1. Trace ascites and anasarca. 2. Severe stool distention of the rectum. 3. Moderately distended bladder with mild wall thickening. 4. Grade 1 anterolisthesis of L5 on S1 from L5 pars defect on the left side.
[2020-05-09] MEDS ORDERED: PNEUMONIA PROTOCOL UTILIZED 1 EACH MISC PO PRN (05:17)
[2020-05-09] MEDS: PIPERACILLIN-TAZOBACTAM 3.375 GM in SODIUM CHLORIDE 0.9% 100 ML IVPB ONE ×2 (05:27→06:36)
[2020-05-09] MEDS ORDERED: AZITHROMYCIN 500 MG in SODIUM CHLORIDE 0.9% 250 ML IVPB ONE (05:30)
--- NOTE | 2020-05-09 05:33 | ED ---
SOB HPI - General Chief Complaint: Shortness of Breath Stated Complaint: HADLEY, Covid + Time Seen by Provider: 05/09/20 01:59 Source: patient, EMS Mode of arrival: EMS Limitations: altered mental status (Dementia) - History of Present Illness Initial Comments: This patient is 79-year-old man [facility] evaluation and treatment for shortness of breath. Patient reportedly diagnosed with Covid 19 infection. It was reported that the patient had saturation of 81% on 4 L nasal cannula. On arrival, the patient not able to give much additional history due to what appears to be underlying dementia. The patient is denying pain. MD Complaint: shortness of breath, cough -: unknown Severity scale (1-10): 0 Consistency: constant Improves With: nothing Worsens With: nothing Context: other (Covid 19) Treatments Prior to Arrival: oxygen - Related Data Home Medications Medication Instructions Recorded Confirmed Atorvastatin [Lipitor] 20 mg PO HS 10/17/13 12/16/19 lisinopriL [Zestril] 5 mg PO HS 10/17/13 12/16/19 Memantine HCl [Namenda] 10 mg PO BID 09/20/16 12/18/19 metFORMIN HCL ER [Glucophage Xr] 500 mg PO BID 11/21/18 12/16/19 traZODone HCL 100 mg PO HS 11/21/18 12/16/19 Acetaminophen [Tylenol] 2 tab PO Q6H PRN 12/16/19 12/16/19 Aspirin [Adult Low Dose Aspirin EC] 81 mg PO DAILY 12/16/19 12/16/19 Ferrous Sulfate [Iron (65 MG 325 mg PO DAILY 12/16/19 12/16/19 Elemental)] Glucerna Shake 1 can PO TID-W/MEALS 12/16/19 12/16/19 Menthol [Biofreeze] 1 applic TOPICAL BID 12/16/19 12/16/19 Milk Of Magnesia 2,400 mg PO DAILY PRN 12/16/19 12/16/19 Prostat Awc 30 ml PO HS 12/16/19 12/16/19 Sertraline [Zoloft] 75 mg PO DAILY 12/16/19 12/18/19 Allergies Allergy/AdvReac Type Severity Reaction Status Date / Time No Known Allergies Allergy Verified 12/16/19 10:24 Review of Systems ROS Statement: Those systems with pertinent positive or pertinent negative responses have been documented in the HPI. ROS Other: All systems not noted in ROS Statement are negative. Limitations: ROS unobtainable due to patients medical condition (Underlying dementia) Past Medical History Past Medical History: Coronary Artery Disease (CAD), Chest Pain / Angina, CVA/TIA, Dementia, Diabetes Mellitus, GERD/Reflux, Hyperlipidemia, Hypertension, Memory Impairment, Myocardial Infarction ([place]), Prostate Disorder, Renal Disease, Sleep Apnea/CPAP/BIPAP Additional Past Medical History / Comment(s): NEUROPATHY RADHA FEET, , CELLULITIS LT ANKLE, right foot decub,EDEMA TO BLE, POOR CIRULATION OF LOWER LEGS "INFECTION OF ESOPHAGUS" DIFFICULTY SWALLOWING AT TIMES, impetigo 02/12/2018, Chronic Kidney disease stage 3 Last Myocardial Infarction Date:: 2012 History of Any Multi-Drug Resistant Organisms: MRSA, VRE Date of last positivie culture/infection: 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; 09/19/19-MRSA MDRO Source:: VRE and MRSA-Left Ankle Past Surgical History: AICD, Heart Catheterization With Stent, Joint Replacement Additional Past Surgical History / Comment(s): TOTAL LT HIP, 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, LT FOOT SKIN GRAFT, RADHA CATARACTS, EGD, Past Anesthesia/Blood Transfusion Reactions: No Reported Reaction Date of Last Stent Placement:: UNSURE-2009 Type of Cardiac Device: AICD Device Placement Date:: 2011 Past Psychological History: Anxiety, Depression Smoking Status: Former smoker Past Alcohol Use History: Unable to Obtain Past Drug Use History: Unable to Obtain - Past Family History Mother Family Medical History: CVA/TIA General Exam Limitations: no limitations General appearance: alert, in no apparent distress Head exam: Present: atraumatic, normocephalic Eye exam: Present: normal appearance. Absent: scleral icterus, conjunctival injection ENT exam: Present: mucous membranes dry Neck exam: Present: normal inspection, full ROM. Absent: meningismus Respiratory exam: Present: respiratory distress, rales, rhonchi. Absent: stridor, chest wall tenderness, accessory muscle use, decreased breath sounds Cardiovascular Exam: Present: normal rhythm, tachycardia (Rate approximately 108 at my exam), systolic murmur (Grade 2/6 systolic ejection murmur). Absent: diastolic murmur, rubs, gallop GI/Abdominal exam: Present: soft. Absent: distended, tenderness, guarding, rebound, rigid, mass Extremities exam: Present: normal inspection, normal capillary refill. Absent: pedal edema, calf tenderness Neurological exam: Present: alert. Absent: oriented X3 (Oriented to Person), motor sensory deficit Skin exam: Present: warm, dry, intact, normal color. Absent: rash Course Vital Signs 05/09/20 05/09/20 05/09/20 01:53 02:05 03:37 Temperature 101.1 F H Pulse Rate 117 H 116 H Respiratory 25 H 22 Rate Blood Pressure 183/8 145/84 O2 Sat by Pulse 87 L 91 L Oximetry Medical Decision Making - Medical Decision Making Patient 79-year-old man [facility] to have evaluation for hypoxemia. Patient does appear to have bilateral infiltrates and does also appear to be dry. IV fluids and antibiotics ordered as well as steroid. I did provide patient's an update on his condition that he is critically ill and did verify that patient is DO NOT RESUSCITATE for CODE STATUS. Case discussed with admitting physician. Treatment recommendations are incorporated. - Lab Data Result diagrams: 05/09/20 02:05 05/09/20 02:05 Lab Results 05/09/20 05/09/20 05/09/20 Range/Units 02:05 02:05 02:05 WBC 9.7 (3.8-10.6) k/uL RBC 3.31 L (4.30-5.90) m/uL Hgb 10.8 L (13.0-17.5) gm/dL Hct 32.4 L (39.0-53.0) % MCV 98.0 (80.0-100.0) fL MCH 32.5 (25.0-35.0) pg MCHC 33.2 (31.0-37.0) g/dL RDW 14.4 (11.5-15.5) % Plt Count 336 (150-450) k/uL MPV 8.2 Neutrophils % (Manual) 61 % Band Neuts % (Manual) 22 % Lymphocytes % (Manual) 11 % Monocytes % (Manual) 5 % Metamyelocytes % 1 % Neutrophils # (Manual) 8.00 H (1.3-7.7) k/uL Lymphocytes # (Manual) 1.07 (1.0-4.8) k/uL Monocytes # (Manual) 0.49 (0-1.0) k/uL Metamyelocytes # (Man) 0.10 H (0) k/uL Nucleated RBCs 0 (0-0) /100 WBC Manual Slide Review Performed Toxic Granulation Present Toxic Vacuolation Present Polychromasia Present Poikilocytosis Slight PT 10.2 (9.0-12.0) sec INR 0.9 (<1.2) APTT 22.7 (22.0-30.0) sec D-Dimer 2.22 H (<0.60) mg/L FEU Sodium 151 H (137-145) mmol/L Potassium 3.8 (3.5-5.1) mmol/L Chloride 118 H (98-107) mmol/L Carbon Dioxide 26 (22-30) mmol/L Anion Gap 7 mmol/L BUN 35 H (9-20) mg/dL Creatinine 0.88 (0.66-1.25) mg/dL Est GFR (CKD-EPI)AfAm >90 (>60 ml/min/1.73 sqM) Est GFR (CKD-EPI)NonAf 82 (>60 ml/min/1.73 sqM) Glucose 225 H (74-99) mg/dL Lactic Ac Sepsis Rflx Plasma Lactic Acid Lev (0.7-2.0) mmol/L Calcium 9.0 (8.4-10.2) mg/dL Total Bilirubin 0.6 (0.2-1.3) mg/dL AST 26 (17-59) U/L ALT 30 (4-49) U/L Alkaline Phosphatase 105 (38-126) U/L Troponin I (0.000-0.034) ng/mL NT-Pro-B Natriuret Pep pg/mL Total Protein 6.4 (6.3-8.2) g/dL Albumin 3.0 L (3.5-5.0) g/dL 05/09/20 05/09/20 05/09/20 Range/Units 02:05 02:05 02:05 WBC (3.8-10.6) k/uL RBC (4.30-5.90) m/uL Hgb (13.0-17.5) gm/dL Hct (39.0-53.0) % MCV (80.0-100.0) fL MCH (25.0-35.0) pg MCHC (31.0-37.0) g/dL RDW (11.5-15.5) % Plt Count (150-450) k/uL MPV Neutrophils % (Manual) % Band Neuts % (Manual) % Lymphocytes % (Manual) % Monocytes % (Manual) % Metamyelocytes % % Neutrophils # (Manual) (1.3-7.7) k/uL Lymphocytes # (Manual) (1.0-4.8) k/uL Monocytes # (Manual) (0-1.0) k/uL Metamyelocytes # (Man) (0) k/uL Nucleated RBCs (0-0) /100 WBC Manual Slide Review Toxic Granulation Toxic Vacuolation Polychromasia Poikilocytosis PT (9.0-12.0) sec INR (<1.2) APTT (22.0-30.0) sec D-Dimer (<0.60) mg/L FEU Sodium (137-145) mmol/L Potassium (3.5-5.1) mmol/L Chloride (98-107) mmol/L Carbon Dioxide (22-30) mmol/L Anion Gap mmol/L BUN (9-20) mg/dL Creatinine (0.66-1.25) mg/dL Est GFR (CKD-EPI)AfAm (>60 ml/min/1.73 sqM) Est GFR (CKD-EPI)NonAf (>60 ml/min/1.73 sqM) Glucose (74-99) mg/dL Lactic Ac Sepsis Rflx Plasma Lactic Acid Lev 2.4 H* (0.7-2.0) mmol/L Calcium (8.4-10.2) mg/dL Total Bilirubin (0.2-1.3) mg/dL AST (17-59) U/L ALT (4-49) U/L Alkaline Phosphatase (38-126) U/L Troponin I 0.069 H* (0.000-0.034) ng/mL NT-Pro-B Natriuret Pep 4740 pg/mL Total Protein (6.3-8.2) g/dL Albumin (3.5-5.0) g/dL 05/09/20 Range/Units 03:03 WBC (3.8-10.6) k/uL RBC (4.30-5.90) m/uL Hgb (13.0-17.5) gm/dL Hct (39.0-53.0) % MCV (80.0-100.0) fL MCH (25.0-35.0) pg MCHC (31.0-37.0) g/dL RDW (11.5-15.5) % Plt Count (150-450) k/uL MPV Neutrophils % (Manual) % Band Neuts % (Manual) % Lymphocytes % (Manual) % Monocytes % (Manual) % Metamyelocytes % % Neutrophils # (Manual) (1.3-7.7) k/uL Lymphocytes # (Manual) (1.0-4.8) k/uL Monocytes # (Manual) (0-1.0) k/uL Metamyelocytes # (Man) (0) k/uL Nucleated RBCs (0-0) /100 WBC Manual Slide Review Toxic Granulation Toxic Vacuolation Polychromasia Poikilocytosis PT (9.0-12.0) sec INR (<1.2) APTT (22.0-30.0) sec D-Dimer (<0.60) mg/L FEU Sodium (137-145) mmol/L Potassium (3.5-5.1) mmol/L Chloride (98-107) mmol/L Carbon Dioxide (22-30) mmol/L Anion Gap mmol/L BUN (9-20) mg/dL Creatinine (0.66-1.25) mg/dL Est GFR (CKD-EPI)AfAm (>60 ml/min/1.73 sqM) Est GFR (CKD-EPI)NonAf (>60 ml/min/1.73 sqM) Glucose (74-99) mg/dL Lactic Ac Sepsis Rflx Y Plasma Lactic Acid Lev (0.7-2.0) mmol/L Calcium (8.4-10.2) mg/dL Total Bilirubin (0.2-1.3) mg/dL AST (17-59) U/L ALT (4-49) U/L Alkaline Phosphatase (38-126) U/L Troponin I (0.000-0.034) ng/mL NT-Pro-B Natriuret Pep pg/mL Total Protein (6.3-8.2) g/dL Albumin (3.5-5.0) g/dL - EKG Data -: EKG Interpreted by Me Interpretation: other (Patient has atrial sensed ventricular paced rhythm at 111 bpm) Disposition Clinical Impression: COVID-19, Pneumonia Disposition: ADMITTED IP TO THIS HOSP Condition: Serious Referrals: Jung Levine MD [Primary Care Provider] - 1-2 days
[2020-05-09] MEDS ORDERED: NON FORMULARY DRUG (Menthol [Biofreeze] 89 ML Gel..Ml.) TOPICAL SCH (09:00)
[2020-05-09] MEDS ORDERED: HEPARIN SODIUM,PORCINE 5,000 UNIT/ML 1 ML VIAL SQ SCH (09:00)
[2020-05-09] MEDS: FERROUS SULFATE 325 MG TAB PO SCH (10:07)
[2020-05-09] MEDS: SERTRALINE 25 MG TAB PO SCH (10:07)
[2020-05-09] MEDS: ASPIRIN 81 MG PO SCH (10:07)
[2020-05-09] MEDS: MEMANTINE 10 MG TAB PO SCH ×2 (10:08→20:15)
[2020-05-09] MEDS: DEXAMETHASONE SOD PHOSPHATE 10 MG/ML 1 ML VIAL IV SCH (10:09)
[2020-05-09 12:20] LABS: Glucose,Whole Blood 331 mg/dL (75-99)
--- NOTE | 2020-05-09 13:49 | P.CNPUL ---
History of Present Illness Consult date: 05/09/20 History of present illness: 79-year-old male patient with multiple medical problems and comorbidities. He is known to have COPD, diabetes mellitus, hypertension, dementia, peripheral neuropathy, and history of esophageal strictures. This patient was transferred to us for hypoxic respiratory failure and shortness of breath. He was diagnosed having a COVID 19 infection on 04/28/2020 at the half-way. He was sent to us for worsening shortness of breath. A CAT scan of the chest was done in the burst department showed bilateral lower lobe consolidation worse on the left consistent with aspiration pneumonia. Minimal groundglass changes in the left upper lobe area. No pulmonary embolism. The patient was started on a combination of Zithromax and Zosyn. The patient was started on Decadron and he is currently admitted to the medical floor. Is currently on oxygen at 15 L per minute nasal cannula. He is a poor historian. He is edentulous. He has a very soft voice. He does have a weak cough. He is a very poor historian. He looks quite lethargic and debilitated at this point in time. He would go to sleep if left unstimulated. Review of Systems ROS unobtainable: due to mental status Past Medical History Past Medical History: Coronary Artery Disease (CAD), Chest Pain / Angina, CVA/TIA, Dementia, Diabetes Mellitus, GERD/Reflux, Hyperlipidemia, Hypertension, Memory Impairment, Myocardial Infarction ([place]), Prostate Disorder, Renal Disease, Sleep Apnea/CPAP/BIPAP Additional Past Medical History / Comment(s): NEUROPATHY RADHA FEET, , CELLULITIS LT ANKLE, right foot decub,EDEMA TO BLE, POOR CIRULATION OF LOWER LEGS "INFECTION OF ESOPHAGUS" DIFFICULTY SWALLOWING AT TIMES, impetigo 02/12/2018, Chronic Kidney disease stage 3 Last Myocardial Infarction Date:: 2012 History of Any Multi-Drug Resistant Organisms: MRSA, VRE Date of last positivie culture/infection: 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; 09/19/19-MRSA MDRO Source:: VRE and MRSA-Left Ankle Past Surgical History: AICD, Heart Catheterization With Stent, Joint Replacement Additional Past Surgical History / Comment(s): TOTAL LT HIP, 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, LT FOOT SKIN GRAFT, RADHA CATARACTS, EGD, Past Anesthesia/Blood Transfusion Reactions: No Reported Reaction Date of Last Stent Placement:: UNSURE-2009 Type of Cardiac Device: AICD Device Placement Date:: 2011 Past Psychological History: Anxiety, Depression Additional Psychological History / Comment(s): Alzheimers disease Smoking Status: Former smoker Past Alcohol Use History: Unable to Obtain Additional Past Alcohol Use History / Comment(s): STARTED SMOKING AT AGE 16 QUIT 1975 SMOKED 1 PPD Past Drug Use History: Unable to Obtain - Past Family History Mother Family Medical History: CVA/TIA Medications and Allergies Home Medications Medication Instructions Recorded Confirmed Type lisinopriL [Zestril] 5 mg PO HS 10/17/13 05/09/20 History Memantine HCl [Namenda] 10 mg PO BID 09/20/16 05/09/20 History traZODone HCL 100 mg PO HS 11/21/18 05/09/20 History Acetaminophen [Tylenol] 650 tab PO TID@0500,1300,2100 12/16/19 05/09/20 History Glucerna Shake 1 can PO TID@0700,1200,1600 12/16/19 05/09/20 History Acetaminophen [Tylenol] 650 mg PO Q6H PRN 05/09/20 05/09/20 History Aspirin [Children's Aspirin] 81 mg PO DAILY 05/09/20 05/09/20 History Atorvastatin Calcium [Lipitor] 10 mg PO HS 05/09/20 05/09/20 History Bismuth Subsalicylate 524 mg PO DAILY PRN 05/09/20 05/09/20 History [Pepto-Bismol] Dexamethasone [Decadron] 6 mg PO DAILY 05/09/20 05/09/20 History Enoxaparin Sodium 40 mg SQ HS 05/09/20 05/09/20 History Lansoprazole 15 mg PO DAILY 05/09/20 05/09/20 History Loperamide HCl [Imodium A-D] 2 mg PO DIRECTED PRN 05/09/20 05/09/20 History Magnesium Hydroxide [Milk of 2,400 mg PO DAILY PRN 05/09/20 05/09/20 History Magnesia] Sertraline HCl [Zoloft] 100 mg PO DAILY 05/09/20 05/09/20 History metFORMIN HCL [Glucophage] 500 mg PO BID 05/09/20 05/09/20 History Allergies Allergy/AdvReac Type Severity Reaction Status Date / Time No Known Allergies Allergy Verified 05/09/20 08:36 Physical Exam Vitals: Vital Signs Temp Pulse Pulse Pulse Resp BP BP 05/09/20 08:00 97.7 F 99 18 137/63 05/09/20 07:11 05/09/20 07:08 05/09/20 06:47 16 05/09/20 06:35 99.1 F 103 H 16 109/63 05/09/20 05:29 101 H 22 145/72 05/09/20 03:37 116 H 22 145/84 05/09/20 02:05 101.1 F H 05/09/20 01:53 117 H 25 H 183/8 Pulse Ox 05/09/20 08:00 91 L 05/09/20 07:11 94 L 05/09/20 07:08 93 L 05/09/20 06:47 89 L 05/09/20 06:35 89 L 05/09/20 05:29 90 L 05/09/20 03:37 91 L 05/09/20 02:05 05/09/20 01:53 87 L Intake and Output 05/08/20 05/09/20 05/09/20 22:59 06:59 14:59 Other: # Voids 1 Weight 90.718 kg 90.718 kg Thin frail elderly male patient, a mild degree of respiratory distress. Overall, he is a poor historian and currently is using 100% nonrebreather facemask and high flow nasal cannula. He seems to be slightly tachypneic. He is not using accessory muscles of breathing. Head exam was generally normal. There was no scleral icterus or corneal arcus. Mucous membranes were moist. Neck was supple and without jugular venous distension, thyromegaly, or carotid bruits. Carotids were easily palpable bilaterally. There was no adenopathy. Lung sounds are diminished bilaterally especially lung bases along with some bibasilar crackles. Cardiac exam revealed the PMI to be normally situated and sized. The rhythm was regular and no extrasystoles were noted during several minutes of auscultation. The first and second heart sounds were normal and physiologic splitting of the second heart sound was noted. There were no murmurs, rubs, clicks, or gallops. Abdominal exam revealed normal bowel sounds. The abdomen was soft, non-tender, and without masses, organomegaly, or appreciable enlargement of the abdominal aorta. Examination of the extremities revealed easily palpable radial, femoral and pedal pulses. There was no cyanosis, clubbing or edema. Examination of the skin revealed no evidence of significant rashes, suspicious appearing nevi or other concerning lesions. Neurologically he has underlying dementia with cognitive impairment. He has global generalized weakness. No focal neurological deficits. Results - Laboratory Findings CBC and BMP: 05/09/20 02:05 05/09/20 02:05 ABG WBC 9.7 k/uL (3.8-10.6) 05/09/20 02:05 RBC 3.31 m/uL (4.30-5.90) L 05/09/20 02:05 Hgb 10.8 gm/dL (13.0-17.5) L 05/09/20 02:05 Hct 32.4 % (39.0-53.0) L 05/09/20 02:05 MCV 98.0 fL (80.0-100.0) 05/09/20 02:05 MCH 32.5 pg (25.0-35.0) 05/09/20 02:05 MCHC 33.2 g/dL (31.0-37.0) 05/09/20 02:05 RDW 14.4 % (11.5-15.5) 05/09/20 02:05 Plt Count 336 k/uL (150-450) 05/09/20 02:05 MPV 8.2 05/09/20 02:05 Neutrophils % (Manual) 61 % 05/09/20 02:05 Band Neuts % (Manual) 22 % 05/09/20 02:05 Lymphocytes % (Manual) 11 % 05/09/20 02:05 Monocytes % (Manual) 5 % 05/09/20 02:05 Metamyelocytes % 1 % 05/09/20 02:05 Neutrophils # (Manual) 8.00 k/uL (1.3-7.7) H 05/09/20 02:05 Lymphocytes # (Manual) 1.07 k/uL (1.0-4.8) 05/09/20 02:05 Monocytes # (Manual) 0.49 k/uL (0-1.0) 05/09/20 02:05 Metamyelocytes # (Man) 0.10 k/uL (0) H 05/09/20 02:05 Nucleated RBCs 0 /100 WBC (0-0) 05/09/20 02:05 Manual Slide Review Performed 05/09/20 02:05 Toxic Granulation Present 05/09/20 02:05 Toxic Vacuolation Present 05/09/20 02:05 Polychromasia Present 05/09/20 02:05 Poikilocytosis Slight 05/09/20 02:05 PT 10.2 sec (9.0-12.0) 05/09/20 02:05 INR 0.9 (<1.2) 05/09/20 02:05 APTT 22.7 sec (22.0-30.0) 05/09/20 02:05 D-Dimer 2.22 mg/L FEU (<0.60) H 05/09/20 02:05 Sodium 151 mmol/L (137-145) H 05/09/20 02:05 Potassium 3.8 mmol/L (3.5-5.1) 05/09/20 02:05 Chloride 118 mmol/L (98-107) H 05/09/20 02:05 Carbon Dioxide 26 mmol/L (22-30) 05/09/20 02:05 Anion Gap 7 mmol/L 05/09/20 02:05 BUN 35 mg/dL (9-20) H 05/09/20 02:05 Creatinine 0.88 mg/dL (0.66-1.25) 05/09/20 02:05 Est GFR (CKD-EPI)AfAm >90 (>60 ml/min/1.73 sqM) 05/09/20 02:05 Est GFR (CKD-EPI)NonAf 82 (>60 ml/min/1.73 sqM) 05/09/20 02:05 Glucose 225 mg/dL (74-99) H 05/09/20 02:05 POC Glucose (mg/dL) 331 mg/dL (75-99) H 05/09/20 12:18 POC Glu Marketing Research Intern ID Mercedez Vieira 05/09/20 12:18 Lactic Ac Sepsis Rflx Y 05/09/20 03:03 Plasma Lactic Acid Lev 1.7 mmol/L (0.7-2.0) 05/09/20 05:19 Calcium 9.0 mg/dL (8.4-10.2) 05/09/20 02:05 Total Bilirubin 0.6 mg/dL (0.2-1.3) 05/09/20 02:05 AST 26 U/L (17-59) 05/09/20 02:05 ALT 30 U/L (4-49) 05/09/20 02:05 Alkaline Phosphatase 105 U/L (38-126) 05/09/20 02:05 Troponin I 0.069 ng/mL (0.000-0.034) H* 05/09/20 02:05 NT-Pro-B Natriuret Pep 4740 pg/mL 05/09/20 02:05 Total Protein 6.4 g/dL (6.3-8.2) 05/09/20 02:05 Albumin 3.0 g/dL (3.5-5.0) L 05/09/20 02:05 PT/INR, D-dimer PT 10.2 sec (9.0-12.0) 05/09/20 02:05 INR 0.9 (<1.2) 05/09/20 02:05 D-Dimer 2.22 mg/L FEU (<0.60) H 05/09/20 02:05 Abnormal lab findings: Abnormal Labs 05/09/20 05/09/20 05/09/20 02:05 02:05 02:05 RBC 3.31 L Hgb 10.8 L Hct 32.4 L Neutrophils # (Manual) 8.00 H Metamyelocytes # (Man) 0.10 H D-Dimer 2.22 H Sodium 151 H Chloride 118 H BUN 35 H Glucose 225 H POC Glucose (mg/dL) Plasma Lactic Acid Lev Troponin I Albumin 3.0 L 05/09/20 05/09/20 05/09/20 02:05 02:05 12:18 RBC Hgb Hct Neutrophils # (Manual) Metamyelocytes # (Man) D-Dimer Sodium Chloride BUN Glucose POC Glucose (mg/dL) 331 H Plasma Lactic Acid Lev 2.4 H* Troponin I 0.069 H* Albumin - Diagnostic Findings Chest x-ray: image reviewed CT scan - chest: image reviewed Assessment and Plan Plan: 1 acute hypoxic respiratory failure, probably a combination of factors including aspiration pneumonia involving the lung bases addition to a recent infection with covid 19 that was confirmed on 04/28/2020 at a half-way. 2 Shortness of breath secondary to above 3 Coronary artery disease a prior history of stent 4 Diabetes mellitus type 2 5 Essential hypertension 6 Hyperlipidemia 7 Diabetic peripheral neuropathy 8 Peripheral arterial disease 9 Esophageal stricture, patient scheduled for a dilatation by Dr. Duque tomorrow 10 Chronic kidney disease stage III from nephrosclerosis. 11 dementia 12 history of AICD in place 13 hyperchloremic hypernatremia with a sodium of 151 Plan Start the patient on 0.45 NSS at the rate of 100 mL an hour Continue oxygen therapy at 12 L per minute nasal cannula. We'll titrate FiO2 based on the patient's overall clinical response [place] 19 testing Check pro-calcitonin level Cover the patient IV Zosyn regarding the possibility of an aspiration pneumonia Aspiration precautions started patient on 6 mg of Decadron on a daily basis Swallow evaluation Lovenox subcu 40 mg for DVT prophylaxis. Check inflammatory markers including LDH and CRP we'll continue to follow. Long-term prognosis poor baseline above-mentioned comorbid conditions and the patient has a DNR/DNI CODE STATUS. Notices poor baseline above-mentioned comorbidities. Repeat chest x-ray repeated electrodes in a.m.
[2020-05-09] MEDS: SODIUM CHLORIDE 0.45% 1,000 ML IV SCH ×2 (14:45→22:31)
[2020-05-09] MEDS: INSULIN ASPART (NovoLOG) 100 UNIT/ML VIAL SQ SCH ×3 (14:46→20:16)
[2020-05-09 14:49] LABS: C Reactive Protein 201.7 mg/L (<10.0)
--- NOTE | 2020-05-09 15:06 | P.HPIM ---
History of Present Illness This is a pleasant 79 years old male with past medical history of coronary artery disease, CVA/TIA, dementia, diabetes mellitus, heart and station, hyperlipidemia, GERD, sleep apnea on CPAP/BiPAP, peripheral vascular disease, status post stent and AICD. Presents because of altered mental status and respiratory failure area patient could not provide information. Patient currently needing 50 L of oxygen via high flow nasal cannula saturating 91%, rest of Vitas looks stable and he is afebrile but had fever of 101.1 on admission Left showing WBC of 9.7K, hemoglobin 10.8 and platelets are normal. D-dimer 2.2, sodium is elevated at 151, elevated lactic acid 2.4 came back to normal, troponin is elevated at 0.06. CT of the abdomen and pelvis: Trace anasarca, severe stool distention of the rectum, moderately distended the bladder with mild wall thickening Chest CTA showing mild ground glass opacity in the left lung but more consolidation in the bilateral lower lungs. Reviewed with pulmonary team No PE Review of Systems N/a Past Medical History Past Medical History: Coronary Artery Disease (CAD), Chest Pain / Angina, CVA/TIA, Dementia, Diabetes Mellitus, GERD/Reflux, Hyperlipidemia, Hypertension, Memory Impairment, Myocardial Infarction (MS), Prostate Disorder, Renal Disease, Sleep Apnea/CPAP/BIPAP Additional Past Medical History / Comment(s): NEUROPATHY RADHA FEET, , CELLULITIS LT ANKLE, right foot decub,EDEMA TO BLE, POOR CIRULATION OF LOWER LEGS "INFECTION OF ESOPHAGUS" DIFFICULTY SWALLOWING AT TIMES, impetigo 02/12/2018, Chronic Kidney disease stage 3 Last Myocardial Infarction Date:: 2012 History of Any Multi-Drug Resistant Organisms: MRSA, VRE Date of last positivie culture/infection: 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; 09/19/19-MRSA MDRO Source:: VRE and MRSA-Left Ankle Past Surgical History: AICD, Heart Catheterization With Stent, Joint Replacement Additional Past Surgical History / Comment(s): TOTAL LT HIP, 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, LT FOOT SKIN GRAFT, RADHA CATARACTS, EGD, Past Anesthesia/Blood Transfusion Reactions: No Reported Reaction Date of Last Stent Placement:: RE-2009 Type of Cardiac Device: AICD Device Placement Date:: 2011 Past Psychological History: Anxiety, Depression Additional Psychological History / Comment(s): Alzheimers disease Smoking Status: Former smoker Past Alcohol Use History: Unable to Obtain Additional Past Alcohol Use History / Comment(s): STARTED SMOKING AT AGE 16 QUIT 1975 SMOKED 1 PPD Past Drug Use History: Unable to Obtain - Past Family History Mother Family Medical History: CVA/TIA Medications and Allergies Home Medications Medication Instructions Recorded Confirmed Type lisinopriL [Zestril] 5 mg PO HS 10/17/13 05/09/20 History Memantine HCl [Namenda] 10 mg PO BID 09/20/16 05/09/20 History traZODone HCL 100 mg PO HS 11/21/18 05/09/20 History Acetaminophen [Tylenol] 650 tab PO TID@0500,1300,2100 12/16/19 05/09/20 History Glucerna Shake 1 can PO TID@0700,1200,1600 12/16/19 05/09/20 History Acetaminophen [Tylenol] 650 mg PO Q6H PRN 05/09/20 05/09/20 History Aspirin [Children's Aspirin] 81 mg PO DAILY 05/09/20 05/09/20 History Atorvastatin Calcium [Lipitor] 10 mg PO HS 05/09/20 05/09/20 History Bismuth Subsalicylate 524 mg PO DAILY PRN 05/09/20 05/09/20 History [Pepto-Bismol] Dexamethasone [Decadron] 6 mg PO DAILY 05/09/20 05/09/20 History Enoxaparin Sodium 40 mg SQ HS 05/09/20 05/09/20 History Lansoprazole 15 mg PO DAILY 05/09/20 05/09/20 History Loperamide HCl [Imodium A-D] 2 mg PO DIRECTED PRN 05/09/20 05/09/20 History Magnesium Hydroxide [Milk of 2,400 mg PO DAILY PRN 05/09/20 05/09/20 History Magnesia] Sertraline HCl [Zoloft] 100 mg PO DAILY 05/09/20 05/09/20 History metFORMIN HCL [Glucophage] 500 mg PO BID 05/09/20 05/09/20 History Allergies Allergy/AdvReac Type Severity Reaction Status Date / Time No Known Allergies Allergy Verified 05/09/20 08:36 Physical Exam Vitals: Vital Signs Temp Pulse Pulse Pulse Resp BP BP 05/09/20 08:00 97.7 F 99 18 137/63 05/09/20 07:11 05/09/20 07:08 05/09/20 06:47 16 05/09/20 06:35 99.1 F 103 H 16 109/63 05/09/20 05:29 101 H 22 145/72 05/09/20 03:37 116 H 22 145/84 05/09/20 02:05 101.1 F H 05/09/20 01:53 117 H 25 H 183/8 Pulse Ox 05/09/20 08:00 91 L 05/09/20 07:11 94 L 05/09/20 07:08 93 L 05/09/20 06:47 89 L 05/09/20 06:35 89 L 05/09/20 05:29 90 L 05/09/20 03:37 91 L 05/09/20 02:05 05/09/20 01:53 87 L Intake and Output 05/09/20 05/09/20 05/09/20 06:59 14:59 22:59 Other: # Voids 1 Weight 90.718 kg 90.718 kg -GENERAL: The patient is sleepy and confused, not in any acute distress. Well developed, well nourished. HEENT: Pupils are round and equally reacting to light. EOMI. No scleral icterus. No conjunctival pallor. Normocephalic, atraumatic. No pharyngeal erythema. No thyromegaly. CARDIOVASCULAR: S1 and S2 present. No murmurs, rubs, or gallops. PULMONARY: Chest is clear to auscultation, no wheezing or crackles. ABDOMEN: Soft, nontender, nondistended, normoactive bowel sounds. No palpable organomegaly. MUSCULOSKELETAL: No joint swelling or deformity. EXTREMITIES: No cyanosis, clubbing, or pedal edema. NEUROLOGICAL: Gross neurological examination did not reveal any focal deficits. SKIN: No rashes. no petechiae. Results CBC & Chem 7: 05/09/20 02:05 05/09/20 02:05 Labs: Abnormal Lab Results - Last 24 Hours (Table) 05/09/20 05/09/20 05/09/20 Range/Units 02:05 02:05 02:05 RBC 3.31 L (4.30-5.90) m/uL Hgb 10.8 L (13.0-17.5) gm/dL Hct 32.4 L (39.0-53.0) % Neutrophils # (Manual) 8.00 H (1.3-7.7) k/uL Metamyelocytes # (Man) 0.10 H (0) k/uL D-Dimer 2.22 H (<0.60) mg/L FEU Sodium 151 H (137-145) mmol/L Chloride 118 H (98-107) mmol/L BUN 35 H (9-20) mg/dL Glucose 225 H (74-99) mg/dL POC Glucose (mg/dL) (75-99) mg/dL Plasma Lactic Acid Lev (0.7-2.0) mmol/L Lactate Dehydrogenase (313-618) U/L Troponin I (0.000-0.034) ng/mL C-Reactive Protein (<10.0) mg/L Albumin 3.0 L (3.5-5.0) g/dL 05/09/20 05/09/20 05/09/20 Range/Units 02:05 02:05 02:05 RBC (4.30-5.90) m/uL Hgb (13.0-17.5) gm/dL Hct (39.0-53.0) % Neutrophils # (Manual) (1.3-7.7) k/uL Metamyelocytes # (Man) (0) k/uL D-Dimer (<0.60) mg/L FEU Sodium (137-145) mmol/L Chloride (98-107) mmol/L BUN (9-20) mg/dL Glucose (74-99) mg/dL POC Glucose (mg/dL) (75-99) mg/dL Plasma Lactic Acid Lev 2.4 H* (0.7-2.0) mmol/L Lactate Dehydrogenase 822 H (313-618) U/L Troponin I 0.069 H* (0.000-0.034) ng/mL C-Reactive Protein 201.7 H (<10.0) mg/L Albumin (3.5-5.0) g/dL 05/09/20 Range/Units 12:18 RBC (4.30-5.90) m/uL Hgb (13.0-17.5) gm/dL Hct (39.0-53.0) % Neutrophils # (Manual) (1.3-7.7) k/uL Metamyelocytes # (Man) (0) k/uL D-Dimer (<0.60) mg/L FEU Sodium (137-145) mmol/L Chloride (98-107) mmol/L BUN (9-20) mg/dL Glucose (74-99) mg/dL POC Glucose (mg/dL) 331 H (75-99) mg/dL Plasma Lactic Acid Lev (0.7-2.0) mmol/L Lactate Dehydrogenase (313-618) U/L Troponin I (0.000-0.034) ng/mL C-Reactive Protein (<10.0) mg/L Albumin (3.5-5.0) g/dL Thrombosis Risk Factor Assmnt - Choose All That Apply Any of the Below Risk Factors Present?: Yes Each Factor Represents 1 point: Abnormal pulmonary function (COPD) Each Risk Factor Represents 3 Points: Age 75 years or older Thrombosis Risk Factor Assessment Total Risk Factor Score: 4 Thrombosis Risk Factor Assessment Level: Moderate Risk Assessment and Plan Assessment: Most likely aspiration pneumonia Acute hypoxic respiratory failure secondary to above hypernatremia Metabolic encephalopathy Fecal impaction Dementia Diabetes mellitus Hypertension Hyperlipidemia History of GERD History of sleep apnea on CPAP/BiPAP Peripheral vascular disease History of coronary artery disease status post stent and AICD Plan: This is a pleasant 79 years old male presenting with aspiration pneumonia and hypernatremia. Continue with Zosyn, continue with oxygen as needed. Keep nothing by mouth. Change fluid to D5W half normal saline at 100 mL per hour. Call pulmonary consult Labs and medication were reviewed.. Continue same treatment. Continue with symptomatic treatment. Resume home medication. Monitor lytes and vitals. DVT and GI prophylaxis. Further recommendationsas per clinical course of the patient DVT prophylaxis: Subcutaneous Lovenox GI Prophylaxis: Pepcid PT/OT: Pending Prognosis is guarded
[2020-05-09] MEDS: PIPERACILLIN-TAZOBACTAM 3.375 GM in SODIUM CHLORIDE 0.9% 100 ML IVPB SCH ×2 (15:35→20:16)
[2020-05-09 17:23] LABS: Glucose,Whole Blood 149 mg/dL (75-99)
[2020-05-09] MEDS ORDERED: INSULIN ASPART (NovoLOG) 100 UNIT/ML VIAL SQ SCH (17:30)
[2020-05-09] MEDS: COLLAGENASE 250 UNIT/GM OINTMENT 30 GM TUBE TOPICAL SCH (18:49)
[2020-05-09 20:10] LABS: Glucose,Whole Blood 137 mg/dL (75-99)
[2020-05-09] MEDS: ATORVASTATIN 20 MG TAB PO SCH (20:15)
[2020-05-09] MEDS: FAMOTIDINE 20 MG/2 ML VIAL IV SCH (20:15)
[2020-05-09] MEDS: lisinopriL 5 MG TAB PO SCH (20:15)
[2020-05-09] MEDS ORDERED: traZODone HCL 100 MG TAB PO SCH (21:00)
[2020-05-10 06:05] LABS: Glucose,Whole Blood 158 mg/dL (75-99)
[2020-05-10 06:21] LABS: Basophils % (A) 0 %; Calcium 8.2 mg/dL (8.4-10.2); Eosinophils % (A) 0 %; Hypochromasia Slight; Lymphocytes # (A) 0.5 k/uL (1.0-4.8); Lymphocytes % (A) 4 %; MCH 32.1 pg (25.0-35.0); MCHC 32.6 g/dL (31.0-37.0); MCV 98.3 fL (80.0-100.0); Mean Platelet Volume 8.2; Monocytes # (A) 0.2 k/uL (0-1.0); Monocytes % (A) 2 %; Neutrophils # (A) 12.4 k/uL (1.3-7.7); Neutrophils % (A) 94 %; Platelet Count 269 k/uL (150-450); Poikilocytosis Slight; Potassium 3.3 mmol/L (3.5-5.1); RBC 2.74 m/uL (4.30-5.90); RDW 14.2 % (11.5-15.5); WBC 13.2 k/uL (3.8-10.6)
[2020-05-10 06:27] LABS: HGB 8.8 gm/dL (13.0-17.5)
[2020-05-10] MEDS: INSULIN ASPART (NovoLOG) 100 UNIT/ML VIAL SQ SCH ×4 (06:42→22:24)
[2020-05-10] MEDS: PIPERACILLIN-TAZOBACTAM 3.375 GM in SODIUM CHLORIDE 0.9% 100 ML IVPB SCH ×3 (06:42→22:25)
--- NOTE | 2020-05-10 07:58 | XR ---
EXAMINATION TYPE: XR chest 1V DATE OF EXAM: 05/10/2020 COMPARISON: 05/09/2020 INDICATION: Follow-up heart disease TECHNIQUE: Single frontal view of the chest is obtained. FINDINGS: The heart size is mildly prominent. The pulmonary vasculature is normal. Mild infiltrate is at the left base. Correlate for atelectasis. Pacemaker overlies left chest. Chronic rotator cuff tears are present bilaterally. IMPRESSION: 1. Nonspecific infiltrate left base. Correlate for atelectasis. Other etiologies could be considered. Follow-up can be performed as clinically indicated.
[2020-05-10] MEDS ORDERED: AZITHROMYCIN 500 MG in SODIUM CHLORIDE 0.9% 250 ML IVPB SCH (09:00)
[2020-05-10] MEDS: ENOXAPARIN 40 MG/0.4 ML SYRINGE SQ SCH (09:16)
[2020-05-10] MEDS: SERTRALINE 25 MG TAB PO SCH (09:16)
[2020-05-10] MEDS: FERROUS SULFATE 325 MG TAB PO SCH (09:16)
[2020-05-10] MEDS: ASPIRIN 81 MG PO SCH (09:16)
[2020-05-10] MEDS: MEMANTINE 10 MG TAB PO SCH ×2 (09:16→22:24)
[2020-05-10] MEDS: COLLAGENASE 250 UNIT/GM OINTMENT 30 GM TUBE TOPICAL SCH (09:17)
[2020-05-10] MEDS: DEXAMETHASONE SOD PHOSPHATE 10 MG/ML 1 ML VIAL IV SCH (09:17)
[2020-05-10] MEDS: FAMOTIDINE 20 MG/2 ML VIAL IV SCH ×2 (09:17→22:24)
--- NOTE | 2020-05-10 09:55 | P.PN ---
Subjective Progress Note Date: 05/10/20 79-year-old male patient with multiple medical problems and comorbidities. He is known to have COPD, diabetes mellitus, hypertension, dementia, peripheral neuropathy, and history of esophageal strictures. This patient was transferred to us for hypoxic respiratory failure and shortness of breath. He was diagnosed having a COVID 19 infection on 04/28/2020 at the residential. He was sent to us for worsening shortness of breath. A CAT scan of the chest was done in the burst department showed bilateral lower lobe consolidation worse on the left consistent with aspiration pneumonia. Minimal groundglass changes in the left upper lobe area. No pulmonary embolism. The patient was started on a co mbination of Zithromax and Zosyn. The patient was started on Decadron and he is currently admitted to the medical floor. Is currently on oxygen at 15 L per minute nasal cannula. He is a poor historian. He is edentulous. He has a very soft voice. He does have a weak cough. He is a very poor historian. He looks quite lethargic and debilitated at this point in time. He would go to sleep if left unstimulated. On today's evaluation 05/10/2020, the patient seems to be more comfortable. A s wallow evaluation will be done tomorrow. Meanwhile, the patient was given some clear liquid diet and the patient is able to swallow appropriately and no aspiration was witnessed by the nursing staff. The patient's CRP came back in 201. LDH is at 822. His sodium level is at 152 and the patient is currently on half normal saline running at the rate of 100 mL an hour. His white cell count is at 13.2. His communicating. The very poor historian. He is confused. No agitation. The heart was mildly prominent. Pulmonary vessel that she was within normal limits. Pacemaker overlies the left chest. Objective - Vital Signs Vital signs: Vital Signs Temp 98.2 F 05/09/20 23:52 Pulse 97 05/10/20 03:26 Resp 20 05/10/20 03:26 BP 140/71 05/10/20 03:26 Pulse Ox 90 L 05/10/20 08:45 Intake & Output 05/09/20 05/10/20 05/10/20 18:59 06:59 18:59 Intake Total 1450 450 Balance 1450 450 Weight 90.718 kg 72 kg Intake: Intake, IV Titration 1450 400 Amount Azithromycin 500 mg In 250 Sodium Chloride 0.9% 250 ml @ 250 mls/hr IVPB DAILY [facility] Rx#:[id number] Piperacillin-Tazobactam 3 100 100 .375 gm In Sodium Chloride 0.9% 100 ml @ 25 mls/hr IVPB Q8H [facility] Rx#: [id number] Sodium Chloride 0.45% 1, 300 000 ml @ 100 mls/hr IV . Q10H [facility] Rx#:[id number] Sodium Chloride 0.9% 1, 1000 000 ml @ 130 mls/hr IV . Q7H42M [facility] Rx#:[id number] cefTRIAXone 1 gm In 100 Sodium Chloride 0.9% 50 ml @ 100 mls/hr IVPB ONCE [facility] Rx#:[id number] Oral 50 Other: Voiding Method Diaper Diaper # Voids 1 2 - Exam Thin frail elderly male patient, a mild degree of respiratory distress. Overall, he is a poor historian and currently is using 100% nonrebreather facemask and high flow nasal cannula. He seems to be slightly tachypneic. He is not using accessory muscles of breathing. Head exam was generally normal. There was no scleral icterus or corneal arcus. Mucous membranes were moist. Neck was supple and without jugular venous distension, thyromegaly, or carotid bruits. Carotids were easily palpable bilaterally. There was no adenopathy. Lung sounds are diminished bilaterally especially lung bases along with some bibasilar crackles. Cardiac exam revealed the PMI to be normally situated and sized. The rhythm was regular and no extrasystoles were noted during several minutes of auscultation. The first and second heart sounds were normal and physiologic splitting of the second heart sound was noted. There were no murmurs, rubs, clicks, or gallops. Abdominal exam revealed normal bowel sounds. The abdomen was soft, non-tender, and without masses, organomegaly, or appreciable enlargement of the abdominal aorta. Examination of the extremities revealed easily palpable radial, femoral and pedal pulses. There was no cyanosis, clubbing or edema. Examination of the skin revealed no evidence of significant rashes, suspicious appearing nevi or other concerning lesions. Neurologically he has underlying dementia with cognitive impairment. He has global generalized weakness. No focal neurological deficits. - Labs CBC & Chem 7: 05/10/20 05:29 05/10/20 05:29 Labs: Abnormal Lab Results - Last 24 Hours (Table) 05/09/20 05/09/20 05/09/20 Range/Units 02:05 02:05 12:18 WBC (3.8-10.6) k/uL RBC (4.30-5.90) m/uL Hgb (13.0-17.5) gm/dL Hct (39.0-53.0) % Neutrophils # (1.3-7.7) k/uL Lymphocytes # (1.0-4.8) k/uL Sodium (137-145) mmol/L Potassium (3.5-5.1) mmol/L Chloride (98-107) mmol/L BUN (9-20) mg/dL Glucose (74-99) mg/dL POC Glucose (mg/dL) 331 H (75-99) mg/dL Calcium (8.4-10.2) mg/dL Lactate Dehydrogenase 822 H (313-618) U/L C-Reactive Protein 201.7 H (<10.0) mg/L Procalcitonin 0.20 H (0.02-0.09) ng/mL 05/09/20 05/09/20 05/10/20 Range/Units 17:22 20:09 05:29 WBC 13.2 H (3.8-10.6) k/uL RBC 2.74 L (4.30-5.90) m/uL Hgb 8.8 L D (13.0-17.5) gm/dL Hct 27.0 L (39.0-53.0) % Neutrophils # 12.4 H (1.3-7.7) k/uL Lymphocytes # 0.5 L (1.0-4.8) k/uL Sodium (137-145) mmol/L Potassium (3.5-5.1) mmol/L Chloride (98-107) mmol/L BUN (9-20) mg/dL Glucose (74-99) mg/dL POC Glucose (mg/dL) 149 H 137 H (75-99) mg/dL Calcium (8.4-10.2) mg/dL Lactate Dehydrogenase (313-618) U/L C-Reactive Protein (<10.0) mg/L Procalcitonin (0.02-0.09) ng/mL 05/10/20 05/10/20 Range/Units 05:29 06:04 WBC (3.8-10.6) k/uL RBC (4.30-5.90) m/uL Hgb (13.0-17.5) gm/dL Hct (39.0-53.0) % Neutrophils # (1.3-7.7) k/uL Lymphocytes # (1.0-4.8) k/uL Sodium 152 H (137-145) mmol/L Potassium 3.3 L (3.5-5.1) mmol/L Chloride 120 H (98-107) mmol/L BUN 33 H (9-20) mg/dL Glucose 143 H (74-99) mg/dL POC Glucose (mg/dL) 158 H (75-99) mg/dL Calcium 8.2 L (8.4-10.2) mg/dL Lactate Dehydrogenase (313-618) U/L C-Reactive Protein (<10.0) mg/L Procalcitonin (0.02-0.09) ng/mL Microbiology - Last 24 Hours (Table) 05/09/20 03:25 Blood Culture - Preliminary Blood No Growth after 24 hours 05/09/20 02:57 Blood Culture Gram Stain - Preliminary Blood 05/09/20 02:57 Blood Culture - Final Blood Assessment and Plan Plan: 1 acute hypoxic respiratory failure, probably a combination of factors including aspiration pneumonia involving the lung bases addition to a recent infection with covid 19 that was confirmed on 04/28/2020 at a residential. 2 Shortness of breath secondary to above 3 Coronary artery disease a prior history of stent 4 Diabetes mellitus type 2 5 Essential hypertension 6 Hyperlipidemia 7 Diabetic peripheral neuropathy 8 Peripheral arterial disease 9 Esophageal stricture, patient scheduled for a dilatation by Dr. Duque tomorrow 10 Chronic kidney disease stage III from nephrosclerosis. 11 dementia 12 history of AICD in place 13 hyperchloremic hypernatremia with a sodium of 152 Plan Start the patient on 0.45 NSS at the rate of 100 mL an hour level is still elevated and will continue to half-normal saline for now. Continue oxygen therapy at 10 L per minute nasal cannula. We'll titrate FiO2 based on the patient's overall clinical response Covid 19 testing, was rechecked yesterday, pending for now Check pro-calcitonin level highly elevated at 0.2 Cover the patient IV Zosyn regarding the possibility of an aspiration pneumonia Aspiration precautions started patient on 6 mg of Decadron on a daily basis Swallow evaluation tomorrow Repeat chest x-ray from today shows atelectatic changes in the left lung base and the patient is currently on 2 L of oxygen by nasal cannula Lovenox subcu 40 mg for DVT prophylaxis. Check inflammatory markers including LDH and CRP we'll continue to follow. Long-term prognosis poor baseline above-mentioned comorbid conditions and the patient has a DNR/DNI CODE STATUS. Notices poor baseline above-mentioned comorbidities.
[2020-05-10] MEDS ORDERED: Potassium Replacement Protocol 1 EACH MISC MISCELLANE PRN (11:12)
[2020-05-10] MEDS ORDERED: DEXTROSE 5%-0.3% NACL 1,000 ML IV ONE (11:30)
[2020-05-10 11:58] LABS: Glucose,Whole Blood 168 mg/dL (75-99)
[2020-05-10] MEDS ORDERED: SODIUM CHLORIDE IV ONE (12:00)
[2020-05-10] MEDS ORDERED: WATER IV ONE (12:00)
[2020-05-10] MEDS ORDERED: DEXTROSE IV ONE (12:00)
--- NOTE | 2020-05-10 12:32 | P.PN ---
Subjective This is a pleasant 79 years old male with past medical history of coronary artery disease, CVA/TIA, dementia, diabetes mellitus, heart and station, hyperlipidemia, GERD, sleep apnea on CPAP/BiPAP, peripheral vascular disease, status post stent and AICD. Presents because of altered mental status and respiratory failure area patient could not provide information. Patient currently needing 50 L of oxygen via high flow nasal cannula saturating 91%, rest of Vitas looks stable and he is afebrile but had fever of 101.1 on admission Left showing WBC of 9.7K, hemoglobin 10.8 and platelets are normal. D-dimer 2.2, sodium is elevated at 151, elevated lactic acid 2.4 came back to normal, troponin is elevated at 0.06. CT of the abdomen and pelvis: Trace anasarca, severe stool distention of the rectum, moderately distended the bladder with mild wall thickening Chest CTA showing mild ground glass opacity in the left lung but more consolidation in the bilateral lower lungs. Reviewed with pulmonary team No PE 05/10/2020 Today patient is more awake, answers questions but does not follow commands appropriately. He does not seem in distress. He looks, and hemodynamically is a stable his oxygen requirement dropped from 15 yesterday down to 9 today with oxygen saturating 92%. Distal trocar breath and dyspneic. Labs show an worsening leukocytosis of 13.2. Potassium 3.3 been replaced, sodium 152 Switch his D5 half normal saline to D5 third normal saline at 100 mL/h. Replace electrolytes. Monitor sugar Patient is currently on Zosyn on D5 third normal saline. Discontinue trazodone and monitor sodium Review of systems: N/a Active Medications Generic Name Dose Route Start Last Admin Trade Name Freq PRN Reason Stop Dose Admin Acetaminophen 325 mg 05/09/20 06:00 Acetaminophen Tab 325 Mg Tab PO Q6H PRN Pain Aspirin 81 mg 05/09/20 09:00 05/10/20 09:16 Aspirin 81 Mg PO 81 mg DAILY MORALES Administration Atorvastatin Calcium 20 mg 05/09/20 21:00 05/09/20 20:15 Atorvastatin 20 Mg Tab PO 20 mg HS MORALES Administration Collagenase 1 applic 05/09/20 15:15 05/10/20 09:17 Collagenase 250 Unit/Gm Ointment 30 Gm Tube TOPICAL 1 applic DAILY MORALES Administration Dexamethasone Sodium Phosphate 6 mg 05/09/20 09:00 05/10/20 09:17 Dexamethasone Sod Phosphate 10 Mg/Ml 1 Ml Vial IV 6 mg DAILY MORALES Administration Enoxaparin Sodium 40 mg 05/10/20 09:00 05/10/20 09:16 Enoxaparin 40 Mg/0.4 Ml Syringe SQ 40 mg DAILY MORALES Administration Famotidine 10 mg 05/09/20 21:00 05/10/20 09:17 Famotidine 20 Mg/2 Ml Vial IV 10 mg Q12HR MORALES Administration Ferrous Sulfate 325 mg 05/09/20 09:00 05/10/20 09:16 Ferrous Sulfate 325 Mg Tab PO 325 mg DAILY MORALES Administration Piperacillin Sod/Tazobactam 100 mls @ 25 mls/hr 05/09/20 14:00 05/10/20 06:42 Sod 3.375 gm/ Sodium Chloride IVPB 25 mls/hr Q8H MORALES Administration Sodium Chloride 51.3 meq/ 1,012.825 mls @ 100 mls/hr 05/10/20 12:00 Dextrose/Water IV 05/10/20 22:07 .Q10H8M ONE Insulin Aspart 0 unit 05/09/20 12:56 05/10/20 06:42 Insulin Aspart (Novolog) 100 Unit/Ml Vial SQ 3 unit ACHS MORALES Administration Protocol Lisinopril 5 mg 05/09/20 21:00 05/09/20 20:15 Lisinopril 5 Mg Tab PO 5 mg HS MORALES Administration Memantine 10 mg 05/09/20 09:00 05/10/20 09:16 Memantine 10 Mg Tab PO 10 mg BID MORALES Administration Miscellaneous Information 1 each 05/09/20 05:17 Pneumonia Protocol Utilized 1 Each Misc PO ONCE PRN Per Protocol Miscellaneous Information 1 each 05/10/20 11:12 Potassium Replacement Protocol 1 Each Misc MISCELLANE DAILY PRN Per Protocol Protocol Potassium Chloride 20 meq 05/10/20 12:00 Potassium Chloride Er 20 Meq Tab.Er PO 05/10/20 13:01 Q1HR MORALES Protocol Sertraline HCl 75 mg 05/09/20 09:00 05/10/20 09:16 Sertraline 25 Mg Tab PO 75 mg DAILY MORALES Administration Objective - Vital Signs Vital signs: Vital Signs Temp 98.2 F 05/09/20 23:52 Pulse 97 05/10/20 03:26 Resp 20 05/10/20 03:26 BP 140/71 05/10/20 03:26 Pulse Ox 92 L 05/10/20 11:51 Intake & Output 05/09/20 05/10/20 05/10/20 18:59 06:59 18:59 Intake Total 1450 450 100 Balance 1450 450 100 Weight 90.718 kg 72 kg Intake: Intake, IV Titration 1450 400 Amount Azithromycin 500 mg In 250 Sodium Chloride 0.9% 250 ml @ 250 mls/hr IVPB DAILY MORALES Rx#:[id number] Piperacillin-Tazobactam 3 100 100 .375 gm In Sodium Chloride 0.9% 100 ml @ 25 mls/hr IVPB Q8H MORALES Rx#: [id number] Sodium Chloride 0.45% 1, 300 000 ml @ 100 mls/hr IV . Q10H MORALES Rx#:[id number] Sodium Chloride 0.9% 1, 1000 000 ml @ 130 mls/hr IV . Q7H42M STA Rx#:[id number] cefTRIAXone 1 gm In 100 Sodium Chloride 0.9% 50 ml @ 100 mls/hr IVPB ONCE STA Rx#:[id number] Oral 50 100 Other: Voiding Method Diaper Diaper # Voids 1 2 - Exam -GENERAL: The patient is more awake and interactive with answering some questions however he looks confused and he does not follow commands appropriately, not in any acute distress. Well developed, well nourished. HEENT: Pupils are round and equally reacting to light. EOMI. No scleral icterus. No conjunctival pallor. Normocephalic, atraumatic. No pharyngeal erythema. No thyromegaly. CARDIOVASCULAR: S1 and S2 present. No murmurs, rubs, or gallops. PULMONARY: Chest is clear to auscultation, no wheezing or crackles. ABDOMEN: Soft, nontender, nondistended, normoactive bowel sounds. No palpable organomegaly. MUSCULOSKELETAL: No joint swelling or deformity. EXTREMITIES: No cyanosis, clubbing, or pedal edema. NEUROLOGICAL: Gross neurological examination did not reveal any focal deficits. SKIN: No rashes. no petechiae. - Labs CBC & Chem 7: 05/10/20 05:29 05/10/20 05:29 Labs: Abnormal Lab Results - Last 24 Hours (Table) 05/09/20 05/09/20 05/09/20 Range/Units 02:05 02:05 17:22 WBC (3.8-10.6) k/uL RBC (4.30-5.90) m/uL Hgb (13.0-17.5) gm/dL Hct (39.0-53.0) % Neutrophils # (1.3-7.7) k/uL Lymphocytes # (1.0-4.8) k/uL Sodium (137-145) mmol/L Potassium (3.5-5.1) mmol/L Chloride (98-107) mmol/L BUN (9-20) mg/dL Glucose (74-99) mg/dL POC Glucose (mg/dL) 149 H (75-99) mg/dL Calcium (8.4-10.2) mg/dL Lactate Dehydrogenase 822 H (313-618) U/L C-Reactive Protein 201.7 H (<10.0) mg/L Procalcitonin 0.20 H (0.02-0.09) ng/mL 05/09/20 05/10/20 05/10/20 Range/Units 20:09 05:29 05:29 WBC 13.2 H (3.8-10.6) k/uL RBC 2.74 L (4.30-5.90) m/uL Hgb 8.8 L D (13.0-17.5) gm/dL Hct 27.0 L (39.0-53.0) % Neutrophils # 12.4 H (1.3-7.7) k/uL Lymphocytes # 0.5 L (1.0-4.8) k/uL Sodium 152 H (137-145) mmol/L Potassium 3.3 L (3.5-5.1) mmol/L Chloride 120 H (98-107) mmol/L BUN 33 H (9-20) mg/dL Glucose 143 H (74-99) mg/dL POC Glucose (mg/dL) 137 H (75-99) mg/dL Calcium 8.2 L (8.4-10.2) mg/dL Lactate Dehydrogenase (313-618) U/L C-Reactive Protein (<10.0) mg/L Procalcitonin (0.02-0.09) ng/mL 05/10/20 05/10/20 Range/Units 06:04 11:56 WBC (3.8-10.6) k/uL RBC (4.30-5.90) m/uL Hgb (13.0-17.5) gm/dL Hct (39.0-53.0) % Neutrophils # (1.3-7.7) k/uL Lymphocytes # (1.0-4.8) k/uL Sodium (137-145) mmol/L Potassium (3.5-5.1) mmol/L Chloride (98-107) mmol/L BUN (9-20) mg/dL Glucose (74-99) mg/dL POC Glucose (mg/dL) 158 H 168 H (75-99) mg/dL Calcium (8.4-10.2) mg/dL Lactate Dehydrogenase (313-618) U/L C-Reactive Protein (<10.0) mg/L Procalcitonin (0.02-0.09) ng/mL Microbiology - Last 24 Hours (Table) 05/09/20 02:57 Blood Culture Gram Stain - Preliminary Blood Blood Culture - Preliminary Staphylococcus aureus 05/09/20 03:25 Blood Culture - Preliminary Blood No Growth after 24 hours 05/09/20 02:57 Blood Culture - Final Blood Assessment and Plan Assessment: aspiration pneumonia Acute hypoxic respiratory failure secondary to above hypernatremia Metabolic encephalopathy Fecal impaction Dementia Diabetes mellitus Hypertension Hyperlipidemia History of GERD History of sleep apnea on CPAP/BiPAP Peripheral vascular disease History of coronary artery disease status post stent and AICD Plan: This is a pleasant 79 years old male presenting with aspiration pneumonia and hypernatremia. Continue with Zosyn, continue with oxygen as needed. Keep nothing by mouth. Change fluid to D5W half normal saline at 100 mL per hour. Call pulmonary consult Labs and medication were reviewed.. Continue same treatment. Continue with symptomatic treatment. Resume home medication. Monitor lytes and vitals. DVT and GI prophylaxis. Further recommendationsas per clinical course of the patient DVT prophylaxis: Subcutaneous Lovenox GI Prophylaxis: Pepcid PT/OT: Pending Prognosis is guarded
[2020-05-10] MEDS: VANCOMYCIN 1,250 MG in SODIUM CHLORIDE 0.9% 250 ML IVPB SCH (14:43)
[2020-05-10] MEDS: POTASSIUM CHLORIDE ER 20 MEQ TAB.ER PO SCH ×2 (14:47→17:45)
[2020-05-10 16:49] LABS: Glucose,Whole Blood 161 mg/dL (75-99)
--- NOTE | 2020-05-10 17:39 | PN ---
PROGRESS NOTE DATE OF SERVICE: 05/10/2020 REASON FOR FOLLOWUP: Bacteremia and pneumonia. INTERVAL HISTORY: The patient is currently afebrile. The patient seemed to be more awake and alert. He is breathing comfortably. He did offer simple questions. When asked specifically, he denies any chest pain. Occasional cough. No abdominal pain. No diarrhea has been reported. PHYSICAL EXAMINATION: Blood pressure 134/60 with a pulse of 90, temperature 98.2. He is 91% on 10 L nasal cannula. General description is an elderly male lying in bed in no distress. Respiratory system: Unlabored breathing, decreased breath sounds at bases. No wheeze. Heart S1, S2. Regular rate and rhythm. Abdomen soft. No tenderness. LABS: Hemoglobin 8.1, white count 13.2, BUN of 33, creatinine 1.02. Blood culture with Staph aureus, possible MRSA. DIAGNOSTIC IMPRESSION AND PLAN: Patient admitted to the hospital with hypoxemia with evidence of left lower lobe pneumonia, concern for possible aspiration etiology, now with evidence of Staph aureus bacteremia possible MRSA. Vancomycin has been added. Blood culture has been repeated to document clearance of his bacteremia concern for possible aspiration pneumonia. However, as no gram-negative, we will be able to continue with only 1 antibiotic. Monitor kidney function closely while on this combination and continue supportive care. MMODL / IJN: [id number] /
[2020-05-10] MEDS: ACETAMINOPHEN TAB 325 MG TAB PO PRN (17:45)
[2020-05-10] MEDS: SODIUM CHLORIDE 0.45% 1,000 ML IV SCH (20:00)
[2020-05-10 20:17] LABS: Glucose,Whole Blood 244 mg/dL (75-99)
[2020-05-10] MEDS: lisinopriL 5 MG TAB PO SCH (22:24)
[2020-05-10] MEDS: ATORVASTATIN 20 MG TAB PO SCH (22:24)
--- NOTE | 2020-05-10 22:38 | P.CONS ---
History of Present Illness - Reason for Consult Consult date: 05/09/20 pneumonia Requesting physician: Massimo E Sheet - Chief Complaint shortness of breath x 1 day - History of Present Illness Patient is a 79-year-old male senior care resident in this patient apparently was diagnosed with a COVID-19 on April 28, 2020 and has been managed at facility patient was sent to the ER early this morning for evaluation of increasing shortness of breath and hypoxemia that apparently got worse the day the patient was present for sent to the ER on arrival to the ER the patient did have a fever of 101 Fpatient was hypoxic 87% on room air on presentation to the hospital, patient did have a normal white count left shift and no lymphopenia D-dimer was elevated creatinine was normal patient did have elevated LDH and CRP liver exam has been normal patient did have a chest x-ray no acute cardiopulmonary process patient did have a CT abdominal pelvis moderate distended bladder with mild wall thickening severe stool distention of the r ectum CT angiogram of the chest did not show any PE there was ill-defined groundglass opacities in the left upper lobe and bilateral lower lobe patient has been admitted to hospital he was started on Zosyn and Zithromax infectious disease was consulted for further management of antibiotic therapy patient also have a 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 Review of Systems Positive point has been mentioned in HPI complete review could not be obtained because of underlying mental status Past Medical History Past Medical History: Coronary Artery Disease (CAD), Chest Pain / Angina, CVA/TIA, Dementia, Diabetes Mellitus, GERD/Reflux, Hyperlipidemia, Hypertension, Memory Impairment, Myocardial Infarction ([place]), Prostate Disorder, Renal Disease, Sleep Apnea/CPAP/BIPAP Additional Past Medical History / Comment(s): NEUROPATHY RADHA FEET, , CELLULITIS LT ANKLE, right foot decub,EDEMA TO BLE, POOR CIRULATION OF LOWER LEGS "INFECTION OF ESOPHAGUS" DIFFICULTY SWALLOWING AT TIMES, impetigo 02/12/2018, Chronic Kidney disease stage 3 Last Myocardial Infarction Date:: 2012 History of Any Multi-Drug Resistant Organisms: MRSA, VRE Year Discovered:: 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; 09/19/19-MRSA MDRO Source:: VRE and MRSA-Left Ankle Past Surgical History: AICD, Heart Catheterization With Stent, Joint Replacement Additional Past Surgical History / Comment(s): TOTAL LT HIP, 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, LT FOOT SKIN GRAFT, RADHA CATARACTS, EGD, Past Anesthesia/Blood Transfusion Reactions: No Reported Reaction Date of Last Stent Placement:: RE-2009 Type of Cardiac Device: AICD Device Placement Date:: 2011 Past Psychological History: Anxiety, Depression Additional Psychological History / Comment(s): Alzheimers disease Smoking Status: Former smoker Past Alcohol Use History: Unable to Obtain Additional Past Alcohol Use History / Comment(s): STARTED SMOKING AT AGE 16 QUIT 1975 SMOKED 1 PPD Past Drug Use History: Unable to Obtain - Past Family History Mother Family Medical History: CVA/TIA Medications and Allergies Home Medications Medication Instructions Recorded Confirmed Type lisinopriL [Zestril] 5 mg PO HS 10/17/13 05/09/20 History Memantine HCl [Namenda] 10 mg PO BID 09/20/16 05/09/20 History traZODone HCL 100 mg PO HS 11/21/18 05/09/20 History Acetaminophen [Tylenol] 650 tab PO TID@0500,1300,2100 12/16/19 05/09/20 History Glucerna Shake 1 can PO TID@0700,1200,1600 12/16/19 05/09/20 History Acetaminophen [Tylenol] 650 mg PO Q6H PRN 05/09/20 05/09/20 History Aspirin [Children's Aspirin] 81 mg PO DAILY 05/09/20 05/09/20 History Atorvastatin Calcium [Lipitor] 10 mg PO HS 05/09/20 05/09/20 History Bismuth Subsalicylate 524 mg PO DAILY PRN 05/09/20 05/09/20 History [Pepto-Bismol] Dexamethasone [Decadron] 6 mg PO DAILY 05/09/20 05/09/20 History Enoxaparin Sodium 40 mg SQ HS 05/09/20 05/09/20 History Lansoprazole 15 mg PO DAILY 05/09/20 05/09/20 History Loperamide HCl [Imodium A-D] 2 mg PO DIRECTED PRN 05/09/20 05/09/20 History Magnesium Hydroxide [Milk of 2,400 mg PO DAILY PRN 05/09/20 05/09/20 History Magnesia] Sertraline HCl [Zoloft] 100 mg PO DAILY 05/09/20 05/09/20 History metFORMIN HCL [Glucophage] 500 mg PO BID 05/09/20 05/09/20 History Allergies Allergy/AdvReac Type Severity Reaction Status Date / Time No Known Allergies Allergy Verified 05/09/20 08:36 Physical Exam Vitals: Vital Signs Temp Pulse Pulse Pulse Resp BP BP 05/09/20 16:44 05/09/20 16:05 99.1 F 87 19 122/57 05/09/20 12:00 90 18 141/65 05/09/20 08:00 97.7 F 99 18 137/63 05/09/20 07:11 05/09/20 07:08 05/09/20 06:47 16 05/09/20 06:35 99.1 F 103 H 16 109/63 05/09/20 05:29 101 H 22 145/72 05/09/20 03:37 116 H 22 145/84 05/09/20 02:05 101.1 F H 05/09/20 01:53 117 H 25 H 183/8 Pulse Ox 05/09/20 16:44 91 L 05/09/20 16:05 93 L 05/09/20 12:00 05/09/20 08:00 91 L 05/09/20 07:11 94 L 05/09/20 07:08 93 L 05/09/20 06:47 89 L 05/09/20 06:35 89 L 05/09/20 05:29 90 L 05/09/20 03:37 91 L 05/09/20 02:05 05/09/20 01:53 87 L Intake and Output 05/09/20 05/09/20 05/09/20 06:59 14:59 22:59 Intake Total 1450 Balance 1450 Intake: Intake, IV Titration 1450 Amount Azithromycin 500 mg In 250 Sodium Chloride 0.9% 250 ml @ 250 mls/hr IVPB DAILY MORALES Rx#:[id number] Piperacillin-Tazobactam 3 100 .375 gm In Sodium Chloride 0.9% 100 ml @ 25 mls/hr IVPB Q8H MORALES Rx#: [id number] Sodium Chloride 0.9% 1, 1000 000 ml @ 130 mls/hr IV . Q7H42M STA Rx#:[id number] cefTRIAXone 1 gm In 100 Sodium Chloride 0.9% 50 ml @ 100 mls/hr IVPB ONCE STA Rx#:[id number] Other: Voiding Method Diaper # Voids 1 1 Weight 90.718 kg 90.718 kg GENERAL DESCRIPTION: Elderly male lying in bed, no distress. No tachypnea or accessory muscle of respiration use. HEENT: Shows Pallor , no scleral icterus. Oral mucous membrane is dry. NECK: Trachea central, no thyromegaly. LUNGS: Unlabored breathing. Decreased breath sound at the base. No wheeze or crackle. HEART: S1, S2, regular rate and rhythm. ABDOMEN: Soft, no tenderness , guarding or rigidity EXTREMITIES: No edema of feet. Right heel stage III pressure ulcer with slough tissue no surrounding swelling redness or any drainage left heel stage II pressure ulcer with no cellulitis SKIN: No rash, no masses palpable. NEUROLOGICAL: The patient is lethargic orientation could not be determined Results CBC & Chem 7: 05/10/20 05:29 05/10/20 05:29 Labs: Abnormal Lab Results - Last 24 Hours (Table) 05/09/20 05/09/20 05/09/20 Range/Units 02:05 02:05 02:05 RBC 3.31 L (4.30-5.90) m/uL Hgb 10.8 L (13.0-17.5) gm/dL Hct 32.4 L (39.0-53.0) % Neutrophils # (Manual) 8.00 H (1.3-7.7) k/uL Metamyelocytes # (Man) 0.10 H (0) k/uL D-Dimer 2.22 H (<0.60) mg/L FEU Sodium 151 H (137-145) mmol/L Chloride 118 H (98-107) mmol/L BUN 35 H (9-20) mg/dL Glucose 225 H (74-99) mg/dL POC Glucose (mg/dL) (75-99) mg/dL Plasma Lactic Acid Lev (0.7-2.0) mmol/L Lactate Dehydrogenase (313-618) U/L Troponin I (0.000-0.034) ng/mL C-Reactive Protein (<10.0) mg/L Albumin 3.0 L (3.5-5.0) g/dL 05/09/20 05/09/20 05/09/20 Range/Units 02:05 02:05 02:05 RBC (4.30-5.90) m/uL Hgb (13.0-17.5) gm/dL Hct (39.0-53.0) % Neutrophils # (Manual) (1.3-7.7) k/uL Metamyelocytes # (Man) (0) k/uL D-Dimer (<0.60) mg/L FEU Sodium (137-145) mmol/L Chloride (98-107) mmol/L BUN (9-20) mg/dL Glucose (74-99) mg/dL POC Glucose (mg/dL) (75-99) mg/dL Plasma Lactic Acid Lev 2.4 H* (0.7-2.0) mmol/L Lactate Dehydrogenase 822 H (313-618) U/L Troponin I 0.069 H* (0.000-0.034) ng/mL C-Reactive Protein 201.7 H (<10.0) mg/L Albumin (3.5-5.0) g/dL 05/09/20 05/09/20 Range/Units 12:18 17:22 RBC (4.30-5.90) m/uL Hgb (13.0-17.5) gm/dL Hct (39.0-53.0) % Neutrophils # (Manual) (1.3-7.7) k/uL Metamyelocytes # (Man) (0) k/uL D-Dimer (<0.60) mg/L FEU Sodium (137-145) mmol/L Chloride (98-107) mmol/L BUN (9-20) mg/dL Glucose (74-99) mg/dL POC Glucose (mg/dL) 331 H 149 H (75-99) mg/dL Plasma Lactic Acid Lev (0.7-2.0) mmol/L Lactate Dehydrogenase (313-618) U/L Troponin I (0.000-0.034) ng/mL C-Reactive Protein (<10.0) mg/L Albumin (3.5-5.0) g/dL Assessment and Plan Assessment: 1-Patient presenting to the hospital with hypoxemia increasing shortness of breath and this patient with a recent diagnosis of Covid 19 however the patient did not have any significant lymphopenia with concern for possible bacterial pneumonia post Covid and will need to cover for the resistant gram-negative to be the likely pathogen is also concern for possible aspiration pneumonia 2left heel pressure ulcer with no cellulitis recommend local wound care (1) Pneumonia Current Visit: Yes Status: Acute Code(s): J18.9 - PNEUMONIA, UNSPECIFIED ORGANISM SNOMED Code(s): 080702113 (2) Diabetic ulcer of left foot Current Visit: No Status: Acute Code(s): E11.621 - TYPE 2 DIABETES MELLITUS WITH FOOT ULCER SNOMED Code(s): 769890552 Plan: 1we will try to obtain a sputum for Gram stain culture 2aspiration precaution 3continue with the Zosyn 3.375 g every 8 hour 4local wound care to left heel with Santyl followed by moist dressing keep the area of the pressure We will follow on clinical condition and cultures to further adjust medication if needed Thank you for this consultation we will follow the patient along with you Time with Patient: Greater than 30
[2020-05-11] MEDS: PIPERACILLIN-TAZOBACTAM 3.375 GM in SODIUM CHLORIDE 0.9% 100 ML IVPB SCH ×3 (06:12→23:08)
[2020-05-11] MEDS: VANCOMYCIN 1,250 MG in SODIUM CHLORIDE 0.9% 250 ML IVPB SCH ×2 (06:12→22:24)
[2020-05-11 06:16] LABS: Glucose,Whole Blood 212 mg/dL (75-99)
[2020-05-11] MEDS: INSULIN ASPART (NovoLOG) 100 UNIT/ML VIAL SQ SCH ×4 (06:47→22:53)
[2020-05-11 07:38] LABS: C Reactive Protein 150.1 mg/L (<10.0)
[2020-05-11] MEDS: COLLAGENASE 250 UNIT/GM OINTMENT 30 GM TUBE TOPICAL SCH (08:34)
[2020-05-11] MEDS: ASPIRIN 81 MG PO SCH (08:35)
[2020-05-11] MEDS: FAMOTIDINE 20 MG/2 ML VIAL IV SCH ×2 (08:35→22:52)
[2020-05-11] MEDS: ENOXAPARIN 40 MG/0.4 ML SYRINGE SQ SCH (08:35)
[2020-05-11] MEDS: SERTRALINE 25 MG TAB PO SCH (08:35)
[2020-05-11] MEDS: FERROUS SULFATE 325 MG TAB PO SCH (08:35)
[2020-05-11] MEDS: DEXAMETHASONE SOD PHOSPHATE 10 MG/ML 1 ML VIAL IV SCH (08:36)
[2020-05-11] MEDS: MEMANTINE 10 MG TAB PO SCH ×2 (08:36→22:52)
[2020-05-11 11:32] LABS: Glucose,Whole Blood 205 mg/dL (75-99)
[2020-05-11] MEDS: DEXTROSE 5% IN WATER 1,000 ML IV SCH (11:36)
[2020-05-11] MEDS: COLCHICINE 0.6 MG EACH PO SCH ×2 (11:50→22:52)
--- NOTE | 2020-05-11 12:39 | P.PN ---
Subjective 79 years old male with past medical history of coronary artery disease, CVA/TIA, dementia, diabetes mellitus, heart and station, hyperlipidemia, GERD, sleep apnea on CPAP/BiPAP, peripheral vascular disease, status post stent and AICD. Presents because of altered mental status and respiratory failure area patient could not provide information. Patient currently needing 50 L of oxygen via high flow nasal cannula saturating 91%, rest of Vitas looks stable and he is afebrile but had fever of 101.1 on admission Left showing WBC of 9.7K, hemoglobin 10.8 and platelets are normal. D-dimer 2.2, sodium is elevated at 151, elevated lactic acid 2.4 came back to normal, troponin is elevated at 0.06. CT of the abdomen and pelvis: Trace anasarca, severe stool distention of the rectum, moderately distended the bladder with mild wall thickening Chest CTA showing mild ground glass opacity in the left lung but more consolidation in the bilateral lower lungs. Reviewed with pulmonary team No PE 05/10/2020 Today patient is more awake, answers questions but does not follow commands appropriately. He does not seem in distress. He looks, and hemodynamically is a stable his oxygen requirement dropped from 15 yesterday down to 9 today with oxygen saturating 92%. Distal trocar breath and dyspneic. Labs show an worsening leukocytosis of 13.2. Potassium 3.3 been replaced, sodium 152 Switch his D5 half normal saline to D5 third normal saline at 100 mL/h. Replace electrolytes. Monitor sugar Patient is currently on Zosyn on D5 third normal saline. Discontinue trazodone and monitor sodium 05/11/2020 Patient was pretty status worsened yesterday and today and patient is presently on 10 L of oxygen heparin. Patient was on no oxygen as today. Patient appears to have second of actually pneumonia patient has bacteremia with MRSA. Patient was started on vancomycin. Patient's sodium is 152 for which patient patient is on D5 with half-normal saline patient is mostly nonverbal unable to get any history from the patient Review of systems: Unable to obtain due to his clinical condition All inpatient medications were reviewed and appropriate changes in these medications as dictated in the interval history and assessment and plan. Objective - Vital Signs Vital signs: Vital Signs Temp 98.4 F 05/11/20 08:00 Pulse 102 H 05/11/20 08:00 Resp 18 05/11/20 08:00 BP 137/69 05/11/20 08:00 Pulse Ox 94 L 05/11/20 08:00 Intake & Output 05/10/20 05/11/20 05/11/20 18:59 06:59 18:59 Intake Total 440 180 Balance 440 180 Weight 72 kg 74 kg Intake: Oral 440 180 Other: Voiding Method Diaper Diaper Diaper # Voids 1 1 - Exam GENERAL: The patient is more awake and interactive with answering some questions however he looks confused and he does not follow commands appropriately, not in any acute distress. Well developed, well nourished. HEENT: Pupils are round and equally reacting to light. EOMI. No scleral icterus. No conjunctival pallor. Normocephalic, atraumatic. No pharyngeal erythema. No thyromegaly. CARDIOVASCULAR: S1 and S2 present. No murmurs, rubs, or gallops. PULMONARY: Chest is clear to auscultation, no wheezing or crackles. ABDOMEN: Soft, nontender, nondistended, normoactive bowel sounds. No palpable organomegaly. MUSCULOSKELETAL: No joint swelling or deformity. EXTREMITIES: No cyanosis, clubbing, or pedal edema. NEUROLOGICAL: Gross neurological examination did not reveal any focal deficits. SKIN: No rashes. no petechiae. - Labs CBC & Chem 7: 05/10/20 05:29 05/10/20 05:29 Labs: Abnormal Lab Results - Last 24 Hours (Table) 05/09/20 05/10/20 05/10/20 Range/Units 15:11 16:41 20:16 D-Dimer (<0.60) mg/L FEU POC Glucose (mg/dL) 161 H 244 H (75-99) mg/dL Lactate Dehydrogenase (313-618) U/L C-Reactive Protein (<10.0) mg/L Procalcitonin (0.02-0.09) ng/mL Coronavirus (PCR) Detected A (Not Detected) 05/11/20 05/11/20 05/11/20 Range/Units 06:14 06:51 06:51 D-Dimer 1.64 H (<0.60) mg/L FEU POC Glucose (mg/dL) 212 H (75-99) mg/dL Lactate Dehydrogenase (313-618) U/L C-Reactive Protein (<10.0) mg/L Procalcitonin 0.45 H (0.02-0.09) ng/mL Coronavirus (PCR) (Not Detected) 05/11/20 05/11/20 Range/Units 06:51 11:29 D-Dimer (<0.60) mg/L FEU POC Glucose (mg/dL) 205 H (75-99) mg/dL Lactate Dehydrogenase 804 H (313-618) U/L C-Reactive Protein 150.1 H (<10.0) mg/L Procalcitonin (0.02-0.09) ng/mL Coronavirus (PCR) (Not Detected) Microbiology - Last 24 Hours (Table) 05/09/20 02:57 Blood Culture Gram Stain - Final Blood Blood Culture - Final Methicillin resist S. aureus 05/09/20 03:25 Blood Culture - Preliminary Blood No Growth after 48 hours Assessment and Plan Plan: Covid 19 with secondary bacterial pneumonia, patient was believed to have aspir ation pneumonia was on Zosyn presents presently has bacteremia with MRSA, patient was started on vancomycin repeat blood cultures will be obtained for tomorrow infectious disease following the patient -Hypovolemic hypernatremia: Patient is on D5 half-normal 7 which will be continued Acute hypoxic respiratory failure secondary to above hypernatremia Metabolic encephalopathy Fecal impaction Dementia Diabetes mellitus Hypertension Hyperlipidemia History of GERD History of sleep apnea on CPAP/BiPAP Peripheral vascular disease History of coronary artery disease status post stent and AICD
--- NOTE | 2020-05-11 14:41 | CDI ---
Documentation Clarification Form Date: 05/11/2020 CDS: Adelina BourneANGELINA, CCDS Admit Date: 05/09/2020 05:17 Patient Name: Delgado Coburn Discharge Date: ATTENTION: The Clinical Documentation Specialists (CDI) and [facility] Coding Staff appreciate your assistance in clarifying documentation. Please respond to the clarification below the line at the bottom and electronically sign. The CDI & [facility] Coding staff will review the response and follow-up if needed. Please note: Queries are made part of the Legal Health Record. If you have any questions, please contact the author of this message via ITS. Dear Dr. Bob Becker: The patient is admitted from a [facility]dc with COVID 19 with secondary bacterial pneumonia, aspiration pneumonia, acute hypoxic respiratory failure and metabolic encephalopathy. History/Risk Factors: MRSA & VRE left Ankle, Difficulty swallowing with esophageal stricture, Hypertension, CKD 3, Hyperlipidemia, Dementia, DM II, Peripheral Neuropathy, Sleep Apnea, PVD, CAD & IA with prior stent & AICD. Former smoker. Clinical Indicators: Presented from a [facility] via EMS on 05/09 with SOB & + COVID. Tested positive for COVID 19 at the [facility]dc on 04/28. 05/09 VS: T 101.1^, P 117^, R 25^, BP 183/84, PO 87 15L nrb 05/09 LAB: WBC (9.7), Neut 8.00^, D Dimer 2.2^, Lactic Acid 2.4^^, LDH 822^, Troponin 0.069^^, CRP 201.7^, Albumin 3.0*, Procalcitonin 0.20^. 05/09 COVID: Positive Blood cultures: 05/09: Final: neg. 05/09: Final: MRSA. 05/09: Preliminary: neg @ 48 hrs RAD: 05/09 CXR: No acute cardiopulmonary process. 05/09 CT chest: No PE, Pericardial effusion 1cm, Groundglass opacities KARISSA, correlate with infectious process or edema. Lower lobe patchy opacities likely aspiration. Treatment: DNR, IV Rocephin, IV fluid 1,000 mls @ 999 mls/hr q1, IV fluid 1,000 mls @ 130 mls/hr q7, IV Azithromycin, IV Zosyn, IV Decadron, Heparin sq Consults: 05/09 Infectious Disease: Pneumonia, Left Heel Diabetic Foot Ulcer 05/09 Pulmonary: Acute Hypoxic Respiratory Failure probably a combination of Aspiration Pneumonia and recent infection with COVID 19. In your professional opinion, please clarify if these findings signify one of the following conditions, whether the condition is POA, and cause, if known: Sepsis o With Severe Sepsis o Without Severe Sepsis Other, please specify Unable to determine Present on Admission o Yes o No Identify the (suspected) organism Link or clarify if there is associated (due to/with): o Organ failure (Last Revision: July 2017) As per my documentation of very severe sepsis that will be documented in my note MTDD
--- NOTE | 2020-05-11 15:14 | P.PN ---
Subjective Progress Note Date: 05/11/20 Principal diagnosis: Aspiration pneumonia, recent COVID 19 pneumonia 79-year-old male patient with multiple medical problems and comorbidities. He is known to have COPD, diabetes mellitus, hypertension, dementia, peripheral neuropathy, and history of esophageal strictures. This patient was transferred to us for hypoxic respiratory failure and shortness of breath. He was diagnosed having a COVID 19 infection on 04/28/2020 at the correction. He was sent to us for worsening shortness of breath. A CAT scan of the chest was done in the burst department showed bilateral lower lobe consolidation worse on the left consistent with aspiration pneumonia. Minimal groundglass changes in the left upper lobe area. No pulmonary embolism. The patient was started on a combina tion of Zithromax and Zosyn. The patient was started on Decadron and he is currently admitted to the medical floor. Is currently on oxygen at 15 L per minute nasal cannula. He is a poor historian. He is edentulous. He has a very soft voice. He does have a weak cough. He is a very poor historian. He looks quite lethargic and debilitated at this point in time. He would go to sleep if left unstimulated. On today's evaluation 05/10/2020, the patient seems to be more comfortable. A swallow evaluation will be done tomorrow. Meanwhile, the patient was given some clear liquid diet and the patient is able to swallow appropriately and no aspiration was witnessed by the nursing staff. The patient's CRP came back in 201. LDH is at 822. His sodium level is at 152 and the patient is currently on half normal saline running at the rate of 100 mL an hour. His white cell count is at 13.2. His communicating. The very poor historian. He is confused. No agitation. The heart was mildly prominent. Pulmonary vessel that she was within normal limits. Pacemaker overlies the left chest. On 05/11/2020 patient seen in follow-up on selective care unit, he is confused, but he is resting comfortably in bed, does not seem to be in any acute distress, no signs of any respiratory difficulty, nursing staff reports that patient has been removing his oxygen, however when he is checked on room air during those periods his O2 sat is around 93%. However at other times it is charted that pat ient is requiring 9 L of oxygen. Patient is currently off the oxygen, he has again removed, and his pulse ox with a handheld pulse oximeter is 75% however patient does not display any signs of any respiratory distress. 5 L of oxygen was reapplied in his O2 sat has come up to over 90%, currently at 96% on 5 L, his been afebrile, blood pressure has been stable. His last chest x-ray on 05/10/2020 showed nonspecific infiltrate at the left base. Patient remains on IV Decadron 6 mg daily, he is on Zosyn and vancomycin for possibility of healthcare acquired versus aspiration pneumonia, he is on prophylactic dose of Lovenox, his coronavirus PCR was positive on 05/09/2020. His FiO2 requirements have actually improved since admission, and his FiO2 is down to 5 L from 15 on 05/09/2020. Fever pattern has improved. His blood culture from 05/09/2020 showed methicillin-resistant staph aureus, ID service is following. His last labs was yesterday showing white blood cell, 13.2, hemoglobin is 8.8, his sodium was 152, potassium is 3.3, chloride is 120, BUN is 33, creatinine is 1.02. He did have a troponin leak at 0.069, his LDH is relatively stable at 804 on today's labs, d-dimer has trended down, at 1.64 today, his pro-calcitonin is actually increased to 0.45 today's labs. he is a very poor historian, he seems drowsy, and nursing staff reports that they have not been able to give him any oral feedings Objective - Vital Signs Vital signs: Vital Signs Temp 98.4 F 05/11/20 12:00 Pulse 91 05/11/20 12:00 Resp 18 05/11/20 13:56 BP 143/62 05/11/20 12:00 Pulse Ox 96 05/11/20 12:00 Intake & Output 05/10/20 05/11/20 05/11/20 18:59 06:59 18:59 Intake Total 440 420 Balance 440 420 Weight 72 kg 74 kg Intake: Oral 440 420 Other: Voiding Method Diaper Diaper Diaper # Voids 1 1 - Exam GENERAL EXAM: Drowsy, confused, 79-year-old frail looking white male, 5 L of oxygen, pulse ox of 96%, earlier patient had his oxygen removed and his pulse ox was down to 75% on room air however patient clinically was not displaying any signs of acute respiratory distress comfortable in no apparent distress. HEAD: Normocephalic/atraumatic. EYES: Normal reaction of pupils, equal size. Conjunctiva pink, sclera white. NOSE: Clear with pink turbinates. THROAT: No erythema or exudates. NECK: No masses, no JVD, no thyroid enlargement, no adenopathy. CHEST: No chest wall deformity. Symmetrical expansion. LUNGS: Equal air entry with no crackles, wheeze, rhonchi or dullness. CVS: Regular rate and rhythm, normal S1 and S2, no gallops, no murmurs, no rubs ABDOMEN: Soft, nontender. No hepatosplenomegaly, normal bowel sounds, no guarding or rigidity. EXTREMITIES: No clubbing, no edema, no cyanosis, 2+ pulses and upper and lower extremities. MUSCULOSKELETAL: Muscle strength and tone normal. SPINE: No scoliosis or deformity SKIN: No rashes CENTRAL NERVOUS SYSTEM: Drowsy and confused No focal deficits, tone is normal in all 4 extremities. - Labs CBC & Chem 7: 05/10/20 05:29 05/10/20 05:29 Labs: Abnormal Lab Results - Last 24 Hours (Table) 05/09/20 05/10/20 05/10/20 Range/Units 15:11 16:41 20:16 D-Dimer (<0.60) mg/L FEU POC Glucose (mg/dL) 161 H 244 H (75-99) mg/dL Lactate Dehydrogenase (313-618) U/L C-Reactive Protein (<10.0) mg/L Procalcitonin (0.02-0.09) ng/mL Coronavirus (PCR) Detected A (Not Detected) 05/11/20 05/11/20 05/11/20 Range/Units 06:14 06:51 06:51 D-Dimer 1.64 H (<0.60) mg/L FEU POC Glucose (mg/dL) 212 H (75-99) mg/dL Lactate Dehydrogenase (313-618) U/L C-Reactive Protein (<10.0) mg/L Procalcitonin 0.45 H (0.02-0.09) ng/mL Coronavirus (PCR) (Not Detected) 05/11/20 05/11/20 Range/Units 06:51 11:29 D-Dimer (<0.60) mg/L FEU POC Glucose (mg/dL) 205 H (75-99) mg/dL Lactate Dehydrogenase 804 H (313-618) U/L C-Reactive Protein 150.1 H (<10.0) mg/L Procalcitonin (0.02-0.09) ng/mL Coronavirus (PCR) (Not Detected) Microbiology - Last 24 Hours (Table) 05/09/20 02:57 Blood Culture Gram Stain - Final Blood Blood Culture - Final Methicillin resist S. aureus 05/09/20 03:25 Blood Culture - Preliminary Blood No Growth after 48 hours Assessment and Plan Plan: Assessment: #1. acute hypoxic respiratory failure, probably a combination of factors including aspiration pneumonia involving the lung bases addition to a recent infection with covid 19 that was confirmed on 04/28/2020 at a correction. #2. Shortness of breath secondary to above #3. Coronary artery disease a prior history of stent #4. Diabetes mellitus type 2 #5. Essential hypertension #6. Hyperlipidemia #7. Diabetic peripheral neuropathy #8. Peripheral arterial disease #9. Esophageal stricture, patient scheduled for a dilatation by Dr. Duque tomorrow #10. Chronic kidney disease stage III from nephrosclerosis. #11. dementia #12. history of AICD in place #13. hyperchloremic hypernatremia with a sodium of 152 Plan: Continue with antibiotics per ID service recommendations, continue weaning FiO2, maintain aspiration precautions, FiO2 requirements and febrile pattern have improved, no worsening dyspnea, follow-up chest x-ray in the morning, follow-up pro-calcitonin, inflammatory markers and a d-dimer. We will add colchicine 0.6 mg twice a day Continue current dose of Lovenox, continue Decadron. We will sw itch IV fluids to D5W at 75 ML per hour. Speech evaluation. I performed a history & physical examination of the patient and discussed their management with my nurse practitioner, Lizbeth Stone. I reviewed the nurse practitioner's note and agree with the documented findings and plan of care. Aster ng sounds are positive for diminished breath sounds. The findings and the impression was discussed with the patient. I attest to the documentation by the nurse practitioner. Time with Patient: Less than 30
[2020-05-11 16:47] LABS: Glucose,Whole Blood 328 mg/dL (75-99)
[2020-05-11] MEDS ORDERED: ACETAMINOPHEN TAB 325 MG TAB PO PRN (18:10)
[2020-05-11 20:41] LABS: Glucose,Whole Blood 316 mg/dL (75-99)
[2020-05-11 22:42] LABS: Glucose,Whole Blood 266 mg/dL (75-99)
--- NOTE | 2020-05-11 22:44 | PN ---
PROGRESS NOTE DATE OF SERVICE: 05/11/2020 REASON FOR FOLLOWUP: MRSA bacteremia; source likely pneumonia. INTERVAL HISTORY: The patient is currently afebrile. The patient seems to be breathing comfortably, hemodynamically stable. Remains lethargic and sleepy, unable to provide any history. No vomiting or any diarrhea has been reported. PHYSICAL EXAMINATION: Blood pressure is 153/73 with a pulse of 73, temperature 98.9. He is 96% on 4 L nasal cannula. General description is an elderly male lying in bed in no distress. RESPIRATORY SYSTEM: Unlabored breathing with decreased breath sounds at the base. No wheeze. HEART: S1, S2. Regular rate and rhythm. ABDOMEN: Soft. No tenderness. LABS: Creatinine 0.45. D-dimer is 1.64. Blood culture repeat so far negative. DIAGNOSTIC IMPRESSION AND PLAN: 1. Patient with methicillin-resistant Staphylococcus aeruginosa bacteremia; source possibly pneumonia. The patient is covered with vancomycin; to continue while watching his kidney function closely. With no Gram-negative grown, Zosyn will be discontinued. 2. Patient with a left heel wound. Local care to continue with the Santyl. Keep pressure off the area. Continue with supportive care. MMODL / IJN: [id number] /
[2020-05-11] MEDS: ATORVASTATIN 20 MG TAB PO SCH (22:52)
[2020-05-11] MEDS: lisinopriL 5 MG TAB PO SCH (22:52)
[2020-05-12] MEDS: ACETAMINOPHEN TAB 325 MG TAB PO PRN ×2 (00:02→05:54)
[2020-05-12] MEDS: DEXTROSE 5% IN WATER 1,000 ML IV SCH ×2 (03:57→17:22)
[2020-05-12 06:38] LABS: Glucose,Whole Blood 177 mg/dL (75-99)
[2020-05-12] MEDS: INSULIN ASPART (NovoLOG) 100 UNIT/ML VIAL SQ SCH ×4 (06:50→20:37)
[2020-05-12] MEDS: ASPIRIN 81 MG PO SCH (08:34)
[2020-05-12] MEDS: MEMANTINE 10 MG TAB PO SCH ×2 (08:34→20:36)
[2020-05-12] MEDS: SERTRALINE 25 MG TAB PO SCH (08:34)
[2020-05-12] MEDS: FERROUS SULFATE 325 MG TAB PO SCH (08:34)
[2020-05-12] MEDS: DEXAMETHASONE SOD PHOSPHATE 10 MG/ML 1 ML VIAL IV SCH (08:35)
[2020-05-12] MEDS: FAMOTIDINE 20 MG/2 ML VIAL IV SCH (08:35)
[2020-05-12] MEDS: COLCHICINE 0.6 MG EACH PO SCH ×2 (08:35→20:35)
[2020-05-12] MEDS: ENOXAPARIN 40 MG/0.4 ML SYRINGE SQ SCH (08:36)
[2020-05-12] MEDS: COLLAGENASE 250 UNIT/GM OINTMENT 30 GM TUBE TOPICAL SCH ×2 (08:36→20:41)
[2020-05-12] MEDS ORDERED: Potassium Replacement Protocol 1 EACH MISC MISCELLANE PRN (10:39)
--- NOTE | 2020-05-12 11:25 | P.PN ---
Subjective 79 years old male with past medical history of coronary artery disease, CVA/TIA, dementia, diabetes mellitus, heart and station, hyperlipidemia, GERD, sleep apnea on CPAP/BiPAP, peripheral vascular disease, status post stent and AICD. Presents because of altered mental status and respiratory failure area patient could not provide information. Patient currently needing 50 L of oxygen via high flow nasal cannula saturating 91%, rest of Vitas looks stable and he is afebrile but had fever of 101.1 on admission Left showing WBC of 9.7K, hemoglobin 10.8 and platelets are normal. D-dimer 2.2, sodium is elevated at 151, elevated lactic acid 2.4 came back to normal, troponin is elevated at 0.06. CT of the abdomen and pelvis: Trace anasarca, severe stool distention of the rectum, moderately distended the bladder with mild wall thickening Chest CTA showing mild ground glass opacity in the left lung but more consolidation in the bilateral lower lungs. Reviewed with pulmonary team No PE 05/10/2020 Today patient is more awake, answers questions but does not follow commands appropriately. He does not seem in distress. He looks, and hemodynamically is a stable his oxygen requirement dropped from 15 yesterday down to 9 today with oxygen saturating 92%. Distal trocar breath and dyspneic. Labs show an worsening leukocytosis of 13.2. Potassium 3.3 been replaced, sodium 152 Switch his D5 half normal saline to D5 third normal saline at 100 mL/h. Replace electrolytes. Monitor sugar Patient is currently on Zosyn on D5 third normal saline. Discontinue trazodone and monitor sodium 05/11/2020 Patient was pretty status worsened yesterday and today and patient is presently on 10 L of oxygen heparin. Patient was on no oxygen as today. Patient appears to have second of actually pneumonia patient has bacteremia with MRSA. Patient was started on vancomycin. Patient's sodium is 152 for which patient patient is on D5 with half-normal saline patient is mostly nonverbal unable to get any history from the patient 05/12/2020 Patient repeat blood cultures from yesterday were negative. Patient isn't requirement improved and presently on 4 L of oxygen will cut down the Decadron to 4 mg. Patient remains on vancomycin Review of systems: Unable to obtain due to his clinical condition All inpatient medications were reviewed and appropriate changes in these medications as dictated in the interval history and assessment and plan. Objective - Vital Signs Vital signs: Vital Signs Temp 98.2 F 05/12/20 08:00 Pulse 99 05/12/20 08:00 Resp 20 05/12/20 08:00 BP 129/75 05/12/20 08:00 Pulse Ox 91 L 05/12/20 08:00 Intake & Output 05/11/20 05/12/20 05/12/20 18:59 06:59 18:59 Intake Total 510 Balance 510 Weight 72 kg Intake: Oral 510 Other: Voiding Method Diaper Diaper Diaper # Voids 2 1 # Bowel Movements 1 1 - Exam GENERAL: The patient is more awake and interactive with answering some questions however he looks confused and he does not follow commands appropriately, not in any acute distress. Well developed, well nourished. HEENT: Pupils are round and equally reacting to light. EOMI. No scleral icterus. No conjunctival pallor. Normocephalic, atraumatic. No pharyngeal erythema. No thyromegaly. CARDIOVASCULAR: S1 and S2 present. No murmurs, rubs, or gallops. PULMONARY: Chest is clear to auscultation, no wheezing or crackles. ABDOMEN: Soft, nontender, nondistended, normoactive bowel sounds. No palpable organomegaly. MUSCULOSKELETAL: No joint swelling or deformity. EXTREMITIES: No cyanosis, clubbing, or pedal edema. NEUROLOGICAL: Gross neurological examination did not reveal any focal deficits. SKIN: No rashes. no petechiae. - Labs CBC & Chem 7: 05/10/20 05:29 05/12/20 07:06 Labs: Abnormal Lab Results - Last 24 Hours (Table) 05/11/20 05/11/20 05/11/20 Range/Units 11:29 16:42 20:37 Sodium (137-145) mmol/L Potassium (3.5-5.1) mmol/L Chloride (98-107) mmol/L BUN (9-20) mg/dL Glucose (74-99) mg/dL POC Glucose (mg/dL) 205 H 328 H 316 H (75-99) mg/dL Calcium (8.4-10.2) mg/dL 05/11/20 05/12/20 05/12/20 Range/Units 22:39 06:16 07:06 Sodium 154 H (137-145) mmol/L Potassium 3.0 L (3.5-5.1) mmol/L Chloride 126 H (98-107) mmol/L BUN 33 H (9-20) mg/dL Glucose 168 H (74-99) mg/dL POC Glucose (mg/dL) 266 H 177 H (75-99) mg/dL Calcium 8.0 L (8.4-10.2) mg/dL Microbiology - Last 24 Hours (Table) 05/11/20 06:51 Blood Culture Gram Stain - Preliminary Blood 05/09/20 03:25 Blood Culture - Preliminary Blood No Growth after 72 hours 05/11/20 06:51 Blood Culture - Final Blood 05/09/20 02:57 Blood Culture Gram Stain - Final Blood Blood Culture - Final Methicillin resist S. aureus Assessment and Plan Plan: Covid 19 with secondary bacterial pneumonia, patient was believed to have aspiration pneumonia was on Zosyn which is presently discontinued presents p resently has bacteremia with MRSA, patient is on vancomycin repeat blood cultures are negative. Patient probably has this MRSA pneumonia on admission. -Hypovolemic hypernatremia: Patient is on D5w at 75 mL per hour which will be continued Acute hypoxic respiratory failure secondary to above hypernatremia Metabolic encephalopathy Fecal impaction Dementia Diabetes mellitus Hypertension Hyperlipidemia History of GERD History of sleep apnea on CPAP/BiPAP Peripheral vascular disease History of coronary artery disease status post stent and AICD
[2020-05-12] MEDS: POTASSIUM CHLORIDE ER 20 MEQ TAB.ER PO SCH ×2 (11:54→12:46)
[2020-05-12 12:36] LABS: Glucose,Whole Blood 286 mg/dL (75-99)
[2020-05-12] MEDS: VANCOMYCIN 1,250 MG in SODIUM CHLORIDE 0.9% 250 ML IVPB SCH (12:48)
--- NOTE | 2020-05-12 15:48 | P.PN ---
Subjective Progress Note Date: 05/12/20 Principal diagnosis: Aspiration pneumonia, recent COVID 19 pneumonia 79-year-old male patient with multiple medical problems and comorbidities. He is known to have COPD, diabetes mellitus, hypertension, dementia, peripheral neuropathy, and history of esophageal strictures. This patient was transferred to us for hypoxic respiratory failure and shortness of breath. He was diagnosed having a COVID 19 infection on 04/28/2020 at the skilled nursing. He was sent to us for worsening shortness of breath. A CAT scan of the chest was done in the burst department showed bilateral lower lobe consolidation worse on the left consistent with aspiration pneumonia. Minimal groundglass changes in the left upper lobe area. No pulmonary embolism. The patient was started on a combina tion of Zithromax and Zosyn. The patient was started on Decadron and he is currently admitted to the medical floor. Is currently on oxygen at 15 L per minute nasal cannula. He is a poor historian. He is edentulous. He has a very soft voice. He does have a weak cough. He is a very poor historian. He looks quite lethargic and debilitated at this point in time. He would go to sleep if left unstimulated. On today's evaluation 05/10/2020, the patient seems to be more comfortable. A swallow evaluation will be done tomorrow. Meanwhile, the patient was given some clear liquid diet and the patient is able to swallow appropriately and no aspiration was witnessed by the nursing staff. The patient's CRP came back in 201. LDH is at 822. His sodium level is at 152 and the patient is currently on half normal saline running at the rate of 100 mL an hour. His white cell count is at 13.2. His communicating. The very poor historian. He is confused. No agitation. The heart was mildly prominent. Pulmonary vessel that she was within normal limits. Pacemaker overlies the left chest. On 05/11/2020 patient seen in follow-up on selective care unit, he is confused, but he is resting comfortably in bed, does not seem to be in any acute distress, no signs of any respiratory difficulty, nursing staff reports that patient has been removing his oxygen, however when he is checked on room air during those periods his O2 sat is around 93%. However at other times it is charted that pat ient is requiring 9 L of oxygen. Patient is currently off the oxygen, he has again removed, and his pulse ox with a handheld pulse oximeter is 75% however patient does not display any signs of any respiratory distress. 5 L of oxygen was reapplied in his O2 sat has come up to over 90%, currently at 96% on 5 L, his been afebrile, blood pressure has been stable. His last chest x-ray on 05/10/2020 showed nonspecific infiltrate at the left base. Patient remains on IV Decadron 6 mg daily, he is on Zosyn and vancomycin for possibility of healthcare acquired versus aspiration pneumonia, he is on prophylactic dose of Lovenox, his coronavirus PCR was positive on 05/09/2020. His FiO2 requirements have actually improved since admission, and his FiO2 is down to 5 L from 15 on 05/09/2020. Fever pattern has improved. His blood culture from 05/09/2020 showed methicillin-resistant staph aureus, ID service is following. His last labs was yesterday showing white blood cell, 13.2, hemoglobin is 8.8, his sodium was 152, potassium is 3.3, chloride is 120, BUN is 33, creatinine is 1.02. He did have a troponin leak at 0.069, his LDH is relatively stable at 804 on today's labs, d-dimer has trended down, at 1.64 today, his pro-calcitonin is actually increased to 0.45 today's labs. he is a very poor historian, he seems drowsy, and nursing staff reports that they have not been able to give him any oral feedings On 05/12/2020 patient seen in follow-up on selective care unit, remains confused, but appears to be in no acute distress. His vital signs have been stable, he is currently on 4 L of oxygen his pulse ox is 94%, his respirations are non-labored, he was afebrile earlier this morning, and last night, and his T-max in the last 24 hours was 100F. He remains on vancomycin for MRSA ba cteremia, follow-up blood cultures have been sent, and his blood culture from May 06 showed gram-positive cocci in clusters. HEENT does have left heel wound. Infectious diseases service is following. Yesterday we ordered for patient to receive 5% dextrose in water at 75 ML per hour in view of free water deficit, insufficient oral intake, and a rising sodium however patient had remained on 0.9 normal saline at a rate of 20 ML per hour, and today's labs show worsening serum sodium of 154, potassium is 3.0, CO2 up to 126, BUN is 33 creatinine 0.97. Patient remains on IV Decadron at 4 mg daily, we added colchicine, and he is on prophylactic dose of Lovenox. Clinically does not seem to be in any acute distress. His CODE STATUS is DO NOT RESUSCITATE, has underlying history of advanced dementia, Objective - Vital Signs Vital signs: Vital Signs Temp 98.2 F 05/12/20 08:00 Pulse 81 05/12/20 12:00 Resp 20 05/12/20 12:00 BP 138/66 05/12/20 12:00 Pulse Ox 94 L 05/12/20 12:00 Intake & Output 05/11/20 05/12/20 05/12/20 18:59 06:59 18:59 Intake Total 510 850 Balance 510 850 Weight 72 kg 72 kg Intake: Intake, IV Titration 850 Amount Dextrose 5% in Water 1, 600 000 ml @ 75 mls/hr IV . [id number] [facility] Rx#:[id number] Vancomycin 1,250 mg In 250 Sodium Chloride 0.9% 250 ml @ 125 mls/hr IVPB Q16H [facility] Rx#:[id number] Oral 510 Other: Voiding Method Diaper Diaper Diaper # Voids 2 1 # Bowel Movements 1 1 - Exam GENERAL EXAM: Drowsy, confused, 79-year-old frail looking white male, on 4l/min of oxygen a pulse ox of 94% HEAD: Normocephalic/atraumatic. EYES: Normal reaction of pupils, equal size. Conjunctiva pink, sclera white. NOSE: Clear with pink turbinates. THROAT: No erythema or exudates. NECK: No masses, no JVD, no thyroid enlargement, no adenopathy. CHEST: No chest wall deformity. Symmetrical expansion. LUNGS: Equal air entry with no crackles, wheeze, rhonchi or dullness. CVS: Regular rate and rhythm, normal S1 and S2, no gallops, no murmurs, no rubs ABDOMEN: Soft, nontender. No hepatosplenomegaly, normal bowel sounds, no guarding or rigidity. EXTREMITIES: No clubbing, no edema, no cyanosis, 2+ pulses and upper and lower extremities. MUSCULOSKELETAL: Muscle strength and tone normal. SPINE: No scoliosis or deformity SKIN: No rashes CENTRAL NERVOUS SYSTEM: Drowsy and confused No focal deficits, tone is normal in all 4 extremities. - Labs CBC & Chem 7: 05/10/20 05:29 05/12/20 07:06 Labs: Abnormal Lab Results - Last 24 Hours (Table) 05/11/20 05/11/20 05/11/20 Range/Units 16:42 20:37 22:39 Sodium (137-145) mmol/L Potassium (3.5-5.1) mmol/L Chloride (98-107) mmol/L BUN (9-20) mg/dL Glucose (74-99) mg/dL POC Glucose (mg/dL) 328 H 316 H 266 H (75-99) mg/dL Calcium (8.4-10.2) mg/dL 05/12/20 05/12/20 05/12/20 Range/Units 06:16 07:06 12:33 Sodium 154 H (137-145) mmol/L Potassium 3.0 L (3.5-5.1) mmol/L Chloride 126 H (98-107) mmol/L BUN 33 H (9-20) mg/dL Glucose 168 H (74-99) mg/dL POC Glucose (mg/dL) 177 H 286 H (75-99) mg/dL Calcium 8.0 L (8.4-10.2) mg/dL Microbiology - Last 24 Hours (Table) 05/11/20 06:51 Blood Culture Gram Stain - Preliminary Blood 05/09/20 03:25 Blood Culture - Preliminary Blood No Growth after 72 hours 05/11/20 06:51 Blood Culture - Final Blood Assessment and Plan Plan: Assessment: #1. acute hypoxic respiratory failure, probably a combination of factors including aspiration pneumonia involving the lung bases addition to a recent infection with covid 19 that was confirmed on 04/28/2020 at a skilled nursing. #2. Shortness of breath secondary to above #3. Coronary artery disease a prior history of stent #4. Diabetes mellitus type 2 #5. Essential hypertension #6. Hyperlipidemia #7. Diabetic peripheral neuropathy #8. Peripheral arterial disease #9. Esophageal stricture, patient scheduled for a dilatation by Dr. White tomorrow #10. Chronic kidney disease stage III from nephrosclerosis. #11. dementia #12. history of AICD in place #13. hyperchloremic hypernatremia with a sodium of 152, related to water deficit #14. MRSA bacteremia, likely related to left heel wound, and patient is on vancomycin, follow blood cultures on 05/11/2020 showed gram-positive cocci in clusters Plan: Switch the IV fluids to D5W at a rate of 75 ML per hour, this was ordered yesterday however it was never started, and today's sodium is on the rise. Tinea weaning FiO2, maintain aspiration precautions, continue current dose of Decadron, prophylactic dose Lovenox, antibiotics per ID service recommendations, currently just on vancomycin, his repeat blood cultures still show gram-positive cocci in clusters likely related to MRSA. Continue to run low-grade fevers. Antibiotics per ID service recommendations, I perf seems to be breathing comfortably, no worsening dyspnea, we will obtain follow-up chest x-ray tomorrow.ntiormed a history & physical examination of the patient and discussed their management with my nurse practitioner, Lizbeth Stone. I reviewed the nurse practitioner's note and agree with the documented findings and plan of care. Lung sounds are positive for diminished breath sounds. The findings and the impression was discussed with the patient. I attest to the documentation by the nurse practitioner. Time with Patient: Less than 30
--- NOTE | 2020-05-12 16:31 | PN ---
PROGRESS NOTE DATE OF SERVICE: 05/12/2020 REASON FOR FOLLOWUP: MRSA bacteremia. INTERVAL HISTORY: The patient is currently afebrile. The patient remains sleepy and lethargic, unable to provide any history. No vomiting or diarrhea has been reported. The patient is unable to provide any history. PHYSICAL EXAMINATION: Blood pressure 132/66, pulse of 81, temperature 98.2. He is 94% on 4 L nasal cannula. General description is an elderly male lying in bed in no distress. RESPIRATORY SYSTEM: Unlabored breathing with decreased breath sounds at the base. No wheeze. HEART: S1, S2. Regular rate and rhythm. ABDOMEN: Soft. No tenderness. LABS: Blood culture repeat from yesterday is coming back positive. Creatinine 0.97. DIAGNOSTIC IMPRESSION AND PLAN: 1. Patient with methicillin-resistant Staphylococcus aeruginosa bacteremia, concern for possible pneumonia. Patient is covered with vancomycin; to continue. Blood culture will be repeated to document clearance of his bacteremia. 2. Left foot wound with slough, but there was no evidence of any significant cellulitis. Local care to continue with Kitty. MMODL / IJN: [id number] /
--- NOTE | 2020-05-12 16:45 | XR ---
EXAMINATION TYPE: XR foot complete LT DATE OF EXAM: 05/12/2020 COMPARISON: NONE HISTORY: Left heel wound TECHNIQUE: 3 views FINDINGS: There is plantar calcaneal spurring. There is multiple hammertoe deformity. The metatarsals are intact. I see no focal bone destruction. There is vascular calcification. IMPRESSION: No acute abnormality of the left foot. No specific sign of osteomyelitis.
[2020-05-12 17:31] LABS: Glucose,Whole Blood 239 mg/dL (75-99)
[2020-05-12 20:23] LABS: Glucose,Whole Blood 142 mg/dL (75-99)
[2020-05-12] MEDS: ATORVASTATIN 20 MG TAB PO SCH (20:35)
[2020-05-12] MEDS: FAMOTIDINE 20 MG TAB PO SCH (20:35)
[2020-05-12] MEDS: lisinopriL 5 MG TAB PO SCH (20:36)
[2020-05-13] MEDS: DEXTROSE 5% IN WATER 1,000 ML IV SCH ×2 (05:37→15:48)
[2020-05-13] MEDS ORDERED: VANCOMYCIN TROUGH DUE 1 EACH MISC MISCELLANE ONE ×2 (06:00→21:00)
[2020-05-13 06:02] LABS: Glucose,Whole Blood 210 mg/dL (75-99)
[2020-05-13] MEDS: VANCOMYCIN 1,250 MG in SODIUM CHLORIDE 0.9% 250 ML IVPB SCH ×2 (06:22→22:43)
[2020-05-13] MEDS: INSULIN ASPART (NovoLOG) 100 UNIT/ML VIAL SQ SCH ×4 (06:22→20:40)
[2020-05-13 07:51] LABS: African American GFR (CKD) >90 (>60 ml/min/1.73 sqM); Non-African American GFR(CKD) 83 (>60 ml/min/1.73 sqM)
[2020-05-13] MEDS: COLCHICINE 0.6 MG EACH PO SCH ×2 (08:26→20:40)
[2020-05-13] MEDS: ENOXAPARIN 40 MG/0.4 ML SYRINGE SQ SCH (08:26)
[2020-05-13] MEDS: ASPIRIN 81 MG PO SCH (08:26)
[2020-05-13] MEDS: FERROUS SULFATE 325 MG TAB PO SCH (08:27)
[2020-05-13] MEDS: FAMOTIDINE 20 MG TAB PO SCH ×2 (08:27→20:40)
[2020-05-13] MEDS: MEMANTINE 10 MG TAB PO SCH ×2 (08:27→20:40)
[2020-05-13] MEDS: SERTRALINE 25 MG TAB PO SCH (08:27)
[2020-05-13] MEDS: DEXAMETHASONE SOD PHOSPHATE 4 MG/ML 1 ML VIAL IV SCH (08:27)
--- NOTE | 2020-05-13 11:54 | P.PN ---
Subjective 79 years old male with past medical history of coronary artery disease, CVA/TIA, dementia, diabetes mellitus, heart and station, hyperlipidemia, GERD, sleep apnea on CPAP/BiPAP, peripheral vascular disease, status post stent and AICD. Presents because of altered mental status and respiratory failure area patient could not provide information. Patient currently needing 50 L of oxygen via high flow nasal cannula saturating 91%, rest of Vitas looks stable and he is afebrile but had fever of 101.1 on admission Left showing WBC of 9.7K, hemoglobin 10.8 and platelets are normal. D-dimer 2.2, sodium is elevated at 151, elevated lactic acid 2.4 came back to normal, troponin is elevated at 0.06. CT of the abdomen and pelvis: Trace anasarca, severe stool distention of the rectum, moderately distended the bladder with mild wall thickening Chest CTA showing mild ground glass opacity in the left lung but more consolidation in the bilateral lower lungs. Reviewed with pulmonary team No PE 05/10/2020 Today patient is more awake, answers questions but does not follow commands appropriately. He does not seem in distress. He looks, and hemodynamically is a stable his oxygen requirement dropped from 15 yesterday down to 9 today with oxygen saturating 92%. Distal trocar breath and dyspneic. Labs show an worsening leukocytosis of 13.2. Potassium 3.3 been replaced, sodium 152 Switch his D5 half normal saline to D5 third normal saline at 100 mL/h. Replace electrolytes. Monitor sugar Patient is currently on Zosyn on D5 third normal saline. Discontinue trazodone and monitor sodium 05/11/2020 Patient was pretty status worsened yesterday and today and patient is presently on 10 L of oxygen heparin. Patient was on no oxygen as today. Patient appears to have second of actually pneumonia patient has bacteremia with MRSA. Patient was started on vancomycin. Patient's sodium is 152 for which patient patient is on D5 with half-normal saline patient is mostly nonverbal unable to get any history from the patient 05/12/2020 Patient repeat blood cultures from yesterday were negative. Patient isn't requirement improved and presently on 4 L of oxygen will cut down the Decadron to 4 mg. Patient remains on vancomycin 05/13/2020 Patient has an ulcer in the heel which doesn't appear to be infected patient has persistent bacteremia because of which x-ray of the heel was obtained which did not show any osteomyelitis repeat blood cultures will be obtained for today and tomorrow continue with IV vancomycin. Review of systems: Unable to obtain due to his clinical condition All inpatient medications were reviewed and appropriate changes in these medications as dictated in the interval history and assessment and plan. Objective - Vital Signs Vital signs: Vital Signs Temp 98.4 F 05/13/20 08:00 Pulse 86 05/13/20 08:00 Resp 18 05/13/20 08:00 BP 156/76 05/13/20 08:00 Pulse Ox 93 L 05/13/20 08:00 Intake & Output 05/12/20 05/13/20 05/13/20 18:59 06:59 18:59 Intake Total 950 0 Balance 950 0 Weight 72 kg 74.5 kg Intake: Intake, IV Titration 850 Amount Dextrose 5% in Water 1, 600 000 ml @ 75 mls/hr IV . [id number] [facility] Rx#:[id number] Vancomycin 1,250 mg In 250 Sodium Chloride 0.9% 250 ml @ 125 mls/hr IVPB Q16H [facility] Rx#:[id number] Oral 100 0 Other: Voiding Method Diaper Diaper Diaper # Voids 1 0 # Bowel Movements 1 0 - Exam GENERAL: The patient is more awake and interactive with answering some questions however he looks confused and he does not follow commands appropriately, not in any acute distress. Well developed, well nourished. HEENT: Pupils are round and equally reacting to light. EOMI. No scleral icterus. No conjunctival pallor. Normocephalic, atraumatic. No pharyngeal erythema. No thyromegaly. CARDIOVASCULAR: S1 and S2 present. No murmurs, rubs, or gallops. PULMONARY: Chest is clear to auscultation, no wheezing or crackles. ABDOMEN: Soft, nontender, nondistended, normoactive bowel sounds. No palpable organomegaly. MUSCULOSKELETAL: No joint swelling or deformity. EXTREMITIES: No cyanosis, clubbing, or pedal edema. Stage II decubitus ulcer on the right heel NEUROLOGICAL: Gross neurological examination did not reveal any focal deficits. SKIN: No rashes. no petechiae. - Labs CBC & Chem 7: 05/10/20 05:29 05/13/20 07:18 Labs: Abnormal Lab Results - Last 24 Hours (Table) 05/12/20 05/12/20 05/12/20 Range/Units 12:33 17:28 20:22 POC Glucose (mg/dL) 286 H 239 H 142 H (75-99) mg/dL 05/13/20 Range/Units 06:01 POC Glucose (mg/dL) 210 H (75-99) mg/dL Microbiology - Last 24 Hours (Table) 05/12/20 07:06 Blood Culture - Preliminary Blood No Growth after 24 hours 05/09/20 03:25 Blood Culture - Preliminary Blood No Growth after 96 hours 05/11/20 06:51 Blood Culture Gram Stain - Preliminary Blood Blood Culture - Preliminary Presumptive MRSA Assessment and Plan Plan: Covid 19 with secondary bacterial pneumonia, patient was treated for aspiration pneumonia was on Zosyn which is presently discontinued presents presently has bacteremia with MRSA, patient is on vancomycin repeat are still positive blood cultures will be obtained for today and tomorrow there is no evidence of possible pneumonitis in the heel x-ray. Patient will be can you done vancomycin -Hypovolemic hypernatremia: Patient is on D5w at 75 mL per hour which will be continued Acute hypoxic respiratory failure secondary to above hypernatremia Metabolic encephalopathy Fecal impaction Dementia Diabetes mellitus Hypertension Hyperlipidemia History of GERD History of sleep apnea on CPAP/BiPAP Peripheral vascular disease History of coronary artery disease status post stent and AICD
[2020-05-13 12:12] LABS: Glucose,Whole Blood 294 mg/dL (75-99)
--- NOTE | 2020-05-13 14:43 | P.PN ---
Subjective Progress Note Date: 05/13/20 Principal diagnosis: Aspiration pneumonia, recent CoVID 19 pneumonia 79-year-old male patient with multiple medical problems and comorbidities. He is known to have COPD, diabetes mellitus, hypertension, dementia, peripheral neuropathy, and history of esophageal strictures. This patient was transferred to us for hypoxic respiratory failure and shortness of breath. He was diagnosed having a COVID 19 infection on 04/28/2020 at the shelter. He was sent to us for worsening shortness of breath. A CAT scan of the chest was done in the burst department showed bilateral lower lobe consolidation worse on the left consistent with aspiration pneumonia. Minimal groundglass changes in the left upper lobe area. No pulmonary embolism. The patient was started on a combina tion of Zithromax and Zosyn. The patient was started on Decadron and he is currently admitted to the medical floor. Is currently on oxygen at 15 L per minute nasal cannula. He is a poor historian. He is edentulous. He has a very soft voice. He does have a weak cough. He is a very poor historian. He looks quite lethargic and debilitated at this point in time. He would go to sleep if left unstimulated. On today's evaluation 05/10/2020, the patient seems to be more comfortable. A swallow evaluation will be done tomorrow. Meanwhile, the patient was given some clear liquid diet and the patient is able to swallow appropriately and no aspiration was witnessed by the nursing staff. The patient's CRP came back in 201. LDH is at 822. His sodium level is at 152 and the patient is currently on half normal saline running at the rate of 100 mL an hour. His white cell count is at 13.2. His communicating. The very poor historian. He is confused. No agitation. The heart was mildly prominent. Pulmonary vessel that she was within normal limits. Pacemaker overlies the left chest. On 05/11/2020 patient seen in follow-up on selective care unit, he is confused, but he is resting comfortably in bed, does not seem to be in any acute distress, no signs of any respiratory difficulty, nursing staff reports that patient has been removing his oxygen, however when he is checked on room air during those periods his O2 sat is around 93%. However at other times it is charted that pat ient is requiring 9 L of oxygen. Patient is currently off the oxygen, he has again removed, and his pulse ox with a handheld pulse oximeter is 75% however patient does not display any signs of any respiratory distress. 5 L of oxygen was reapplied in his O2 sat has come up to over 90%, currently at 96% on 5 L, his been afebrile, blood pressure has been stable. His last chest x-ray on 05/10/2020 showed nonspecific infiltrate at the left base. Patient remains on IV Decadron 6 mg daily, he is on Zosyn and vancomycin for possibility of healthcare acquired versus aspiration pneumonia, he is on prophylactic dose of Lovenox, his coronavirus PCR was positive on 05/09/2020. His FiO2 requirements have actually improved since admission, and his FiO2 is down to 5 L from 15 on 05/09/2020. Fever pattern has improved. His blood culture from 05/09/2020 showed methicillin-resistant staph aureus, ID service is following. His last labs was yesterday showing white blood cell, 13.2, hemoglobin is 8.8, his sodium was 152, potassium is 3.3, chloride is 120, BUN is 33, creatinine is 1.02. He did have a troponin leak at 0.069, his LDH is relatively stable at 804 on today's labs, d-dimer has trended down, at 1.64 today, his pro-calcitonin is actually increased to 0.45 today's labs. he is a very poor historian, he seems drowsy, and nursing staff reports that they have not been able to give him any oral feedings On 05/12/2020 patient seen in follow-up on selective care unit, remains confused, but appears to be in no acute distress. His vital signs have been stable, he is currently on 4 L of oxygen his pulse ox is 94%, his respirations are non-labored, he was afebrile earlier this morning, and last night, and his T-max in the last 24 hours was 100F. He remains on vancomycin for MRSA ba cteremia, follow-up blood cultures have been sent, and his blood culture from May 06 showed gram-positive cocci in clusters. HEENT does have left heel wound. Infectious diseases service is following. Yesterday we ordered for patient to receive 5% dextrose in water at 75 ML per hour in view of free water deficit, insufficient oral intake, and a rising sodium however patient had remained on 0.9 normal saline at a rate of 20 ML per hour, and today's labs show worsening serum sodium of 154, potassium is 3.0, CO2 up to 126, BUN is 33 creatinine 0.97. Patient remains on IV Decadron at 4 mg daily, we added colchicine, and he is on prophylactic dose of Lovenox. Clinically does not seem to be in any acute distress. His CODE STATUS is DO NOT RESUSCITATE, has underlying history of advanced dementia, The patient is seen today 05/13/2020 and follow-up on the selective care unit. He is currently resting comfortably in bed. Remains confused. Minimal conversation. Blood cultures are positive for MRSA. Creatinine 0.85. Vancomycin trough 22.0. Remains on vancomycin. Continued on dexamethasone, Lovenox, Pepcid, colchicine. X-ray of the left heel revealed no acute abnormality of the left foot. No specific signs of osteomyelitis. Objective - Vital Signs Vital signs: Vital Signs Temp 98.4 F 05/13/20 12:00 Pulse 74 05/13/20 12:00 Resp 18 05/13/20 12:00 BP 146/74 05/13/20 12:00 Pulse Ox 93 L 05/13/20 12:00 Intake & Output 05/12/20 05/13/20 05/13/20 18:59 06:59 18:59 Intake Total 950 0 Balance 950 0 Weight 72 kg 74.5 kg Intake: Intake, IV Titration 850 Amount Dextrose 5% in Water 1, 600 000 ml @ 75 mls/hr IV . [id number] MORALES Rx#:[id number] Vancomycin 1,250 mg In 250 Sodium Chloride 0.9% 250 ml @ 125 mls/hr IVPB Q16H MORALES Rx#:[id number] Oral 100 0 Other: Voiding Method Diaper Diaper Diaper # Voids 1 0 # Bowel Movements 1 0 - Exam GENERAL EXAM: Drowsy, confused, 79-year-old frail looking male patient, on 4 L/min of oxygen a pulse ox of 93% HEAD: Normocephalic/atraumatic. EYES: Normal reaction of pupils, equal size. Conjunctiva pink, sclera white. NOSE: Clear with pink turbinates. THROAT: No erythema or exudates. NECK: No masses, no JVD, no thyroid enlargement, no adenopathy. CHEST: No chest wall deformity. Symmetrical expansion. LUNGS: Equal air entry with crackles in the left base. CVS: Regular rate and rhythm, normal S1 and S2, no gallops, no murmurs, no rubs ABDOMEN: Soft, nontender. No hepatosplenomegaly, normal bowel sounds, no guarding or rigidity. EXTREMITIES: No clubbing, no edema, no cyanosis, 2+ pulses and upper and lower extremities. MUSCULOSKELETAL: Muscle strength and tone normal. SPINE: No scoliosis or deformity SKIN: No rashes CENTRAL NERVOUS SYSTEM: Drowsy and confused No focal deficits, tone is normal in all 4 extremities. - Labs CBC & Chem 7: 05/10/20 05:29 05/13/20 07:18 Labs: Abnormal Lab Results - Last 24 Hours (Table) 05/12/20 05/12/20 05/13/20 Range/Units 17:28 20:22 06:01 POC Glucose (mg/dL) 239 H 142 H 210 H (75-99) mg/dL 05/13/20 Range/Units 12:11 POC Glucose (mg/dL) 294 H (75-99) mg/dL Microbiology - Last 24 Hours (Table) 05/12/20 07:06 Blood Culture - Preliminary Blood No Growth after 24 hours 05/09/20 03:25 Blood Culture - Preliminary Blood No Growth after 96 hours 05/11/20 06:51 Blood Culture Gram Stain - Preliminary Blood Blood Culture - Preliminary Presumptive MRSA Assessment and Plan Assessment: 1. Acute hypoxic respiratory failure, probably a combination of factors including aspiration pneumonia involving the lung bases addition to a recent infection with covid 19 that was confirmed on 04/28/2020 at a shelter. 2. Shortness of breath secondary to above 3. Coronary artery disease a prior history of stent 4. Diabetes mellitus type 2 5. Essential hypertension 6. Hyperlipidemia 7. Diabetic peripheral neuropathy 8. Peripheral arterial disease 9. Esophageal stricture, patient scheduled for a dilatation by Dr. White tomorrow 10. Chronic kidney disease stage III from nephrosclerosis. 11. dementia 12. history of AICD in place 13. hyperchloremic hypernatremia with a sodium of 154, related to water deficit 14. MRSA bacteremia, likely related to left heel wound, and patient is on vancomycin, follow blood cultures on 05/11/2020 showed gram-positive cocci in clusters Plan: The patient was seen and evaluated by Dr. Gomez Remains hypernatremic at 154 Increase D5W at 100 ML's per hour Recheck labs in a.m. Overall prognosis is quite guarded We will continue to follow I, the cosigning physician, performed a history & physical examination of the patient. Lungs sounds crackles in the left base. Maintaining good O2 saturations in the 90s on 4 L/m per nasal cannula. I discussed the assessment and plan of care with my nurse practitioner, Shamika Rodríguez. I attest to the above note as dictated by her.
--- NOTE | 2020-05-13 15:00 | PN ---
PROGRESS NOTE DATE OF SERVICE: 05/13/2020 REASON FOR FOLLOWUP: MRSA bacteremia and pneumonia. INTERVAL HISTORY: The patient is currently afebrile. Patient is breathing comfortably. The patient remains to be pleasantly confused, unable to provide any history. No vomiting or diarrhea or any other changes reported. PHYSICAL EXAMINATION: Blood pressure 146/74 with a pulse of 74, temperature 98.4. He is 93% on 4 L nasal cannula. General description is an elderly male lying in bed in no distress. RESPIRATORY SYSTEM: Unlabored breathing, clear to auscultation anteriorly. HEART: S1, S2. Regular rate and rhythm. ABDOMEN: Soft, no tenderness. Left heel wound is currently dressed. No drainage on the dressing. LABS: Vanco trough is 22, creatinine 0.85. Blood cultures from the 25th were positive. DIAGNOSTIC IMPRESSION AND PLAN: Patient with MRSA bacteremia source likely pneumonia. The patient did have ulcer to the left heel, but no evidence of any bony changes on the x-ray. Will wait for the blood culture to be negative before placing a PICC line and recommending a 2-week course of IV vancomycin. This was discussed with the admitting team. MMODL / IJN: [id number] /
[2020-05-13 17:00] LABS: Glucose,Whole Blood 146 mg/dL (75-99)
[2020-05-13 20:37] LABS: Glucose,Whole Blood 212 mg/dL (75-99)
[2020-05-13] MEDS: lisinopriL 5 MG TAB PO SCH (20:39)
[2020-05-13] MEDS: ATORVASTATIN 20 MG TAB PO SCH (20:39)
[2020-05-13] MEDS: COLLAGENASE 250 UNIT/GM OINTMENT 30 GM TUBE TOPICAL SCH (21:06)
[2020-05-14] MEDS: DEXTROSE 5% IN WATER 1,000 ML IV SCH ×3 (01:07→21:01)
[2020-05-14 06:25] LABS: Glucose,Whole Blood 202 mg/dL (75-99)
[2020-05-14] MEDS: INSULIN ASPART (NovoLOG) 100 UNIT/ML VIAL SQ SCH ×4 (06:36→21:09)
[2020-05-14 08:00] LABS: African American GFR (CKD) >90 (>60 ml/min/1.73 sqM); Anion Gap 6 mmol/L; Blood Urea Nitrogen 21 mg/dL (9-20); Calcium 7.7 mg/dL (8.4-10.2); Carbon Dioxide 23 mmol/L (22-30); Chloride 121 mmol/L (98-107); Glucose 204 mg/dL (74-99); Non-African American GFR(CKD) 84 (>60 ml/min/1.73 sqM); Potassium 2.8 mmol/L (3.5-5.1); Sodium 150 mmol/L (137-145)
[2020-05-14] MEDS ORDERED: Potassium Replacement Protocol 1 EACH MISC MISCELLANE PRN (08:25)
[2020-05-14 08:38] LABS: HCT 25.2 % (39.0-53.0); HGB 8.6 gm/dL (13.0-17.5); Hypochromasia Slight; Mean Platelet Volume 8.1; Platelet Count 219 k/uL (150-450); Poikilocytosis Slight; RDW 13.9 % (11.5-15.5); WBC 11.2 k/uL (3.8-10.6)
[2020-05-14 09:36] LABS: C Reactive Protein 34.7 mg/L (<10.0)
[2020-05-14] MEDS: COLCHICINE 0.6 MG EACH PO SCH ×2 (09:48→21:08)
[2020-05-14] MEDS: FAMOTIDINE 20 MG TAB PO SCH ×2 (09:48→21:08)
[2020-05-14] MEDS: SERTRALINE 25 MG TAB PO SCH (09:48)
[2020-05-14] MEDS: ENOXAPARIN 40 MG/0.4 ML SYRINGE SQ SCH (09:49)
[2020-05-14] MEDS: MEMANTINE 10 MG TAB PO SCH ×2 (09:49→21:08)
[2020-05-14] MEDS: ASPIRIN 81 MG PO SCH (09:49)
[2020-05-14] MEDS: FERROUS SULFATE 325 MG TAB PO SCH (09:49)
[2020-05-14] MEDS: POTASSIUM CHLORIDE 10 MEQ in WATER FOR INJECTION 1 100ML.BAG IVPB SCH ×6 (09:49→21:00)
[2020-05-14] MEDS: DEXAMETHASONE SOD PHOSPHATE 4 MG/ML 1 ML VIAL IV SCH (09:49)
[2020-05-14] MEDS: VANCOMYCIN 1,250 MG in SODIUM CHLORIDE 0.9% 250 ML IVPB SCH ×2 (09:56→21:03)
[2020-05-14 11:51] LABS: Glucose,Whole Blood 255 mg/dL (75-99)
--- NOTE | 2020-05-14 14:36 | P.PN ---
Subjective 79 years old male with past medical history of coronary artery disease, CVA/TIA, dementia, diabetes mellitus, heart and station, hyperlipidemia, GERD, sleep apnea on CPAP/BiPAP, peripheral vascular disease, status post stent and AICD. Presents because of altered mental status and respiratory failure area patient could not provide information. Patient currently needing 50 L of oxygen via high flow nasal cannula saturating 91%, rest of Vitas looks stable and he is afebrile but had fever of 101.1 on admission Left showing WBC of 9.7K, hemoglobin 10.8 and platelets are normal. D-dimer 2.2, sodium is elevated at 151, elevated lactic acid 2.4 came back to normal, troponin is elevated at 0.06. CT of the abdomen and pelvis: Trace anasarca, severe stool distention of the rectum, moderately distended the bladder with mild wall thickening Chest CTA showing mild ground glass opacity in the left lung but more consolidation in the bilateral lower lungs. Reviewed with pulmonary team No PE 05/10/2020 Today patient is more awake, answers questions but does not follow commands appropriately. He does not seem in distress. He looks, and hemodynamically is a stable his oxygen requirement dropped from 15 yesterday down to 9 today with oxygen saturating 92%. Distal trocar breath and dyspneic. Labs show an worsening leukocytosis of 13.2. Potassium 3.3 been replaced, sodium 152 Switch his D5 half normal saline to D5 third normal saline at 100 mL/h. Replace electrolytes. Monitor sugar Patient is currently on Zosyn on D5 third normal saline. Discontinue trazodone and monitor sodium 05/11/2020 Patient was pretty status worsened yesterday and today and patient is presently on 10 L of oxygen heparin. Patient was on no oxygen as today. Patient appears to have second of actually pneumonia patient has bacteremia with MRSA. Patient was started on vancomycin. Patient's sodium is 152 for which patient patient is on D5 with half-normal saline patient is mostly nonverbal unable to get any history from the patient 05/12/2020 Patient repeat blood cultures from yesterday were negative. Patient isn't requirement improved and presently on 4 L of oxygen will cut down the Decadron to 4 mg. Patient remains on vancomycin 05/13/2020 Patient has an ulcer in the heel which doesn't appear to be infected patient has persistent bacteremia because of which x-ray of the heel was obtained which did not show any osteomyelitis repeat blood cultures will be obtained for today and tomorrow continue with IV vancomycin. Patient will need total 14 days of antibiotic. 05/14/2020 Patient is more awake and answering questions. Although alert oriented 1 which is his baseline patient blood cultures from 26 or so far negative. Remained negative patient will receive a PICC line tomorrow and the possibility of discharge tomorrow to subacute rehabilitation Review of systems: Unable to obtain due to his clinical condition All inpatient medications were reviewed and appropriate changes in these medications as dictated in the interval history and assessment and plan. Objective - Vital Signs Vital signs: Vital Signs Temp 98 F 05/14/20 11:15 Pulse 85 05/14/20 11:15 Resp 22 05/14/20 11:15 BP 141/77 05/14/20 11:15 Pulse Ox 94 L 05/14/20 11:15 Intake & Output 05/13/20 05/14/20 05/14/20 18:59 06:59 18:59 Intake Total 100 480 480 Balance 100 480 480 Weight 73 kg Intake: Oral 100 480 480 Other: Voiding Method Diaper Diaper # Voids 1 2 2 # Bowel Movements 1 2 1 - Exam GENERAL: The patient is more awake and interactive with answering some questions however he looks confused and he does not follow commands appropriately, not in any acute distress. Well developed, well nourished. HEENT: Pupils are round and equally reacting to light. EOMI. No scleral icterus. No conjunctival pallor. Normocephalic, atraumatic. No pharyngeal erythema. No thyromegaly. CARDIOVASCULAR: S1 and S2 present. No murmurs, rubs, or gallops. PULMONARY: Chest is clear to auscultation, no wheezing or crackles. ABDOMEN: Soft, nontender, nondistended, normoactive bowel sounds. No palpable organomegaly. MUSCULOSKELETAL: No joint swelling or deformity. EXTREMITIES: No cyanosis, clubbing, or pedal edema. Stage II decubitus ulcer on the right heel NEUROLOGICAL: Gross neurological examination did not reveal any focal deficits. SKIN: No rashes. no petechiae. - Labs CBC & Chem 7: 05/14/20 07:02 05/14/20 07:02 Labs: Abnormal Lab Results - Last 24 Hours (Table) 05/13/20 05/13/2021 Range/Units 16:58 20:35 06:21 WBC (3.8-10.6) k/uL RBC (4.30-5.90) m/uL Hgb (13.0-17.5) gm/dL Hct (39.0-53.0) % ESR (0-15) mm/hr Sodium (137-145) mmol/L Potassium (3.5-5.1) mmol/L Chloride (98-107) mmol/L BUN (9-20) mg/dL Glucose (74-99) mg/dL POC Glucose (mg/dL) 146 H 212 H 202 H (75-99) mg/dL Calcium (8.4-10.2) mg/dL C-Reactive Protein (<10.0) mg/L 05/14/20 05/14/20 05/14/20 Range/Units 07:02 07:02 07:02 WBC 11.2 H (3.8-10.6) k/uL RBC 2.60 L (4.30-5.90) m/uL Hgb 8.6 L (13.0-17.5) gm/dL Hct 25.2 L (39.0-53.0) % ESR 122 H (0-15) mm/hr Sodium 150 H (137-145) mmol/L Potassium 2.8 L (3.5-5.1) mmol/L Chloride 121 H (98-107) mmol/L BUN 21 H (9-20) mg/dL Glucose 204 H (74-99) mg/dL POC Glucose (mg/dL) (75-99) mg/dL Calcium 7.7 L (8.4-10.2) mg/dL C-Reactive Protein 34.7 H (<10.0) mg/L 05/14/20 Range/Units 11:49 WBC (3.8-10.6) k/uL RBC (4.30-5.90) m/uL Hgb (13.0-17.5) gm/dL Hct (39.0-53.0) % ESR (0-15) mm/hr Sodium (137-145) mmol/L Potassium (3.5-5.1) mmol/L Chloride (98-107) mmol/L BUN (9-20) mg/dL Glucose (74-99) mg/dL POC Glucose (mg/dL) 255 H (75-99) mg/dL Calcium (8.4-10.2) mg/dL C-Reactive Protein (<10.0) mg/L Microbiology - Last 24 Hours (Table) 05/12/20 07:06 Blood Culture - Preliminary Blood No Growth after 48 hours 05/13/20 07:18 Blood Culture - Preliminary Blood No Growth after 24 hours 05/09/20 03:25 Blood Culture - Preliminary Blood No Growth after 120 hours 05/11/20 06:51 Blood Culture Gram Stain - Final Blood Blood Culture - Final Methicillin resist S. aureus Assessment and Plan Plan: Covid 19 with secondary bacterial pneumonia, patient was treated for aspiration pneumonia was on Zosyn which is presently discontinued presents presently has bacteremia with MRSA, patient is on vancomycin repeat are still positive blood cultures will be obtained for today and tomorrow there is no evidence of possible steel myelitis in the heel x-ray. Patient will be can you done vancomycin. Patient appears to have MRSA pneumonia -Hypovolemic hypernatremia: Patient is on D5w at 75 mL per hour which will be continued Acute hypoxic respiratory failure secondary to above hypernatremia Metabolic encephalopathy Fecal impaction Dementia Diabetes mellitus Hypertension Hyperlipidemia History of GERD History of sleep apnea on CPAP/BiPAP Peripheral vascular disease History of coronary artery disease status post stent and AICD
[2020-05-14 14:41] VITALS: BMI 21.8
--- NOTE | 2020-05-14 15:23 | PN ---
PROGRESS NOTE DATE OF SERVICE: 05/14/2020 REASON FOR FOLLOWUP: MRSA bacteremia. INTERVAL HISTORY: The patient is currently afebrile. The patient is more awake and alert. He is breathing comfortably. No chest pain. No abdominal pain or pain to the left leg area. No diarrhea reported by nursing staff. PHYSICAL EXAMINATION: Blood pressure 141/77, pulse of 85, temperature 98. He is 94% on 4 L nasal cannula. General description is an elderly male lying in bed in no distress. RESPIRATORY SYSTEM: Unlabored breathing with decreased intensity of breath sounds. No wheeze. HEART: S1, S2. Regular rate and rhythm. ABDOMEN: Soft. No tenderness. LABS: Blood cultures from 05/12 and 05/13 have been negative so far. DIAGNOSTIC IMPRESSION AND PLAN: Patient with methicillin-resistant Staphylococcus aeruginosa bacteremia; source possible pneumonia. He did have a wound to the left heel which did not look infected and x-rays were negative for any bony changes. Recommend getting a PICC line tomorrow with a plan for 2 weeks of IV vancomycin from his negative blood culture and close outpatient followup. MMODL / IJN: [id number] /
[2020-05-14 16:57] LABS: Glucose,Whole Blood 217 mg/dL (75-99)
[2020-05-14] MEDS: COLLAGENASE 250 UNIT/GM OINTMENT 30 GM TUBE TOPICAL SCH (20:00)
[2020-05-14 20:04] LABS: Glucose,Whole Blood 205 mg/dL (75-99)
[2020-05-14] MEDS: ATORVASTATIN 20 MG TAB PO SCH (21:08)
[2020-05-14] MEDS: lisinopriL 5 MG TAB PO SCH (21:09)
[2020-05-15 06:20] LABS: Glucose,Whole Blood 181 mg/dL (75-99)
[2020-05-15] MEDS: DEXTROSE 5% IN WATER 1,000 ML IV SCH ×2 (06:28→20:52)
[2020-05-15] MEDS: INSULIN ASPART (NovoLOG) 100 UNIT/ML VIAL SQ SCH ×4 (06:28→21:49)
[2020-05-15 07:10] LABS: African American GFR (CKD) >90 (>60 ml/min/1.73 sqM); Anion Gap 5 mmol/L; Blood Urea Nitrogen 19 mg/dL (9-20); Calcium 7.5 mg/dL (8.4-10.2); Carbon Dioxide 23 mmol/L (22-30); Chloride 117 mmol/L (98-107); Glucose 173 mg/dL (74-99); Non-African American GFR(CKD) 83 (>60 ml/min/1.73 sqM); Sodium 145 mmol/L (137-145)
[2020-05-15] MEDS ORDERED: LIDOCAINE 1% INJ 10MG/ML (20 ML MDV) ONE (09:12)
[2020-05-15] MEDS ORDERED: IV FLUID CONTINUATION 1,000 ML IV ONE (09:34)
[2020-05-15] MEDS ORDERED: LIDOCAINE 1% INJ 10MG/ML (20 ML MDV) SQ ONE (10:03)
--- NOTE | 2020-05-15 10:40 | XR ---
EXAMINATION TYPE: XR chest 1V confirm line plcmt DATE OF EXAM: 05/15/2020 COMPARISON: 05/10/2020 HISTORY: Line placement TECHNIQUE: Single frontal view of the chest is obtained. FINDINGS: Interval placement of right-sided PICC line which is coiled within the right innominate ve in, no other interval change IMPRESSION: PICC line as described
--- NOTE | 2020-05-15 10:41 | XR ---
EXAMINATION TYPE: XR chest 1V confirm line [facility] DATE OF EXAM: 05/15/2020 COMPARISON: Prior chest x-ray same dated earlier time HISTORY: Manipulation of PICC line TECHNIQUE: Single frontal view of the chest is obtained. FINDINGS: PICC line now shows a coarse from the right upper extremity such that the distal tip is ov erlying superior vena cava. No other significant interval change. IMPRESSION: PICC line overlying the superior vena cava, ready for use
[2020-05-15] MEDS ORDERED: Potassium Replacement Protocol 1 EACH MISC MISCELLANE PRN (11:10)
[2020-05-15] MEDS: ASPIRIN 81 MG PO SCH (11:12)
[2020-05-15] MEDS: COLCHICINE 0.6 MG EACH PO SCH ×2 (11:12→20:45)
[2020-05-15] MEDS: FAMOTIDINE 20 MG TAB PO SCH ×2 (11:12→20:43)
[2020-05-15] MEDS: FERROUS SULFATE 325 MG TAB PO SCH (11:13)
[2020-05-15] MEDS: DEXAMETHASONE SOD PHOSPHATE 4 MG/ML 1 ML VIAL IV SCH (11:13)
[2020-05-15] MEDS: MEMANTINE 10 MG TAB PO SCH ×2 (11:13→20:43)
[2020-05-15] MEDS: SERTRALINE 25 MG TAB PO SCH (11:13)
[2020-05-15] MEDS: VANCOMYCIN 1,250 MG in SODIUM CHLORIDE 0.9% 250 ML IVPB SCH ×2 (11:13→20:49)
[2020-05-15] MEDS: ENOXAPARIN 40 MG/0.4 ML SYRINGE SQ SCH (11:14)
[2020-05-15] MEDS: CHOLESTYRAMINE (WITH SUGAR) 4 GM PACKET PO SCH ×3 (11:14→17:50)
[2020-05-15] MEDS: POTASSIUM CHLORIDE ER 20 MEQ TAB.ER PO SCH ×5 (11:28→17:53)
[2020-05-15 11:40] VITALS: RESP 20
--- NOTE | 2020-05-15 12:00 | ECHOF ---
Referral Reason:bacteremia MEASUREMENTS -------- HEIGHT: 0.0 cm WEIGHT: 0.0 kg BP: RVIDd: 3.8 cm (< 3.3) IVSd: 1.3 cm (0.6 - 1.1) LVIDd: 4.5 cm (3.9 - 5.3) LVPWd: 2.3 cm (0.6 - 1.1) IVSs: 1.7 cm LVIDs: 4.0 cm LVPWs: 1.8 cm Ao Diam: 3.9 cm (2.0 - 3.7) MV EXCURSION: 26.995 mm (> 18.000) MV EF SLOPE: 94 mm/s (70 - 150) EPSS: 0.7 cm MV E Gilbert: 0.36 m/s MV DecT: 264 ms MV A Gilbert: 0.80 m/s MV E/A Ratio: 0.45 FINDINGS -------- Pacerwire seen in RV and RA. This was a techncally difficult study with suboptimal views, , Lumason utilized for enhancement of im ages. Pt is positive for Covid. The left ventricular size is normal. There is mild concentric left ventricular hypertrophy. Overa ll left ventricular systolic function is low-normal with, an EF between 50 - 55 %. The right ventricle is mildly enlarged. The left atrial size is normal. The right atrial size is normal. 5.0mg OF Lumason UTLIZED: 2 OR MORE WALL SEGMENTS NOT VISUALIZED. There is mild aortic valve sclerosis. The mitral valve leaflets are mildly thickened. The tricuspid valve was not well visualized. The pulmonic valve was not well visualized. The aortic root size is normal. Echo free space represents a pericardial fat pad. CONCLUSIONS -------- 1. Pacerwire seen in RV and RA. 2. This was a techncally difficult study with suboptimal views, , Lumason utilized for enhancement of images. 3. Pt is positive for Covid. 4. There is mild concentric left ventricular hypertrophy. 5. Overall left ventricular systolic function is low-normal with, an EF between 50 - 55 %. 6. The right ventricle is mildly enlarged. 7. The left atrial size is normal. 8. 5.0mg OF Lumason UTLIZED: 2 OR MORE WALL SEGMENTS NOT VISUALIZED. 9. There is mild aortic valve sclerosis. 10. The mitral valve leaflets are mildly thickened. 11. The tricuspid valve was not well visualized. 12. The pulmonic valve was not well visualized. 13. Echo free space represents a pericardial fat pad. ROADABILITY MACHINE OPERATOR: Korina Woods RDCS
[2020-05-15 12:16] LABS: Glucose,Whole Blood 200 mg/dL (75-99)
--- NOTE | 2020-05-15 13:19 | P.DS ---
Providers Date of admission: 05/09/20 05:17 Attending physician: Sonali Samuels Consults: 05/09/20 05:17 Consult Physician Routine Consulting Provider: Cain Kingston Consult Reason/Comments: Pneumonia. Covid 10 infection Do you want consulting provider notified?: Yes 05/09/20 12:46 Consult Physician Urgent Consulting Provider: Kwesi Caal Consult Reason/Comments: hypoxia , reported covid Do you want consulting provider notified?: Yes Primary care physician: Jung [facility] Course: 79 years old male with past medical history of coronary artery disease, CVA/TIA, dementia, diabetes mellitus, heart and station, hyperlipidemia, GERD, sleep apnea on CPAP/BiPAP, peripheral vascular disease, status post stent and AICD. Presents because of altered mental status and respiratory failure area patient could not provide information. Patient currently needing 50 L of oxygen via high flow nasal cannula saturating 91%, rest of Vitas looks stable and he is afebrile but had fever of 101.1 on admission Left showing WBC of 9.7K, hemoglobin 10.8 and platelets are normal. D-dimer 2.2, sodium is elevated at 151, elevated lactic acid 2.4 came back to normal, troponin is elevated at 0.06. CT of the abdomen and pelvis: Trace anasarca, severe stool distention of the rectum, moderately distended the bladder with mild wall thickening Chest CTA showing mild ground glass opacity in the left lung but more consolidation in the bilateral lower lungs. Reviewed with pulmonary team No PE 05/10/2020 Today patient is more awake, answers questions but does not follow commands appropriately. He does not seem in distress. He looks, and hemodynamically is a stable his oxygen requirement dropped from 15 yesterday down to 9 today with oxygen saturating 92%. Distal trocar breath and dyspneic. Labs show an worsening leukocytosis of 13.2. Potassium 3.3 been replaced, sodium 152 Switch his D5 half normal saline to D5 third normal saline at 100 mL/h. Replace electrolytes. Monitor sugar Patient is currently on Zosyn on D5 third normal saline. Discontinue trazodone and monitor sodium 05/11/2020 Patient was pretty status worsened yesterday and today and patient is presently on 10 L of oxygen heparin. Patient was on no oxygen as today. Patient appears to have second of actually pneumonia patient has bacteremia with MRSA. Patient was started on vancomycin. Patient's sodium is 152 for which patient patient is on D5 with half-normal saline patient is mostly nonverbal unable to get any history from the patient 05/12/2020 Patient repeat blood cultures from yesterday were negative. Patient isn't requirement improved and presently on 4 L of oxygen will cut down the Decadron to 4 mg. Patient remains on vancomycin 05/13/2020 Patient has an ulcer in the heel which doesn't appear to be infected patient has persistent bacteremia because of which x-ray of the heel was obtained which did not show any osteomyelitis repeat blood cultures will be obtained for today and tomorrow continue with IV vancomycin. Patient will need total 14 days of antibiotic. 05/14/2020 Patient is more awake and answering questions. Although alert oriented 1 which is his baseline patient blood cultures from or so far negative. Remained negative patient will receive a PICC line tomorrow and the possibility of discharge tomorrow to subacute rehabilitation 05/15/2020 Issues blood cultures remain negative from . Patient will be discharged today if cleared by infectious disease and patient will need to be on vancomycin IV and the dose as per infectious disease. Patient will receive a PICC line today. GENERAL: The patient is more awake and interactive with answering some questions however he looks confused and he does not follow commands appropriately, not in any acute distress. Well developed, well nourished. HEENT: Pupils are round and equally reacting to light. EOMI. No scleral icterus. No conjunctival pallor. Normocephalic, atraumatic. No pharyngeal erythema. No thyromegaly. CARDIOVASCULAR: S1 and S2 present. No murmurs, rubs, or gallops. PULMONARY: Chest is clear to auscultation, no wheezing or crackles. ABDOMEN: Soft, nontender, nondistended, normoactive bowel sounds. No palpable organomegaly. MUSCULOSKELETAL: No joint swelling or deformity. EXTREMITIES: No cyanosis, clubbing, or pedal edema. Stage II decubitus ulcer on the right heel NEUROLOGICAL: Gross neurological examination did not reveal any focal deficits. SKIN: No rashes. no petechiae. Assessment and Plan Plan: Covid 19 with secondary to MRSA pneumonia, respiratory failure improved. Patient will be discharged on vancomycin patient was bacteremic will need total 14 days of vancomycin. -Hypovolemic hypernatremia: Improved now. -2 recent Covid 19 infection patient has been on Decadron for longtime because of which we need to do a slow taper of Decadron Acute hypoxic respiratory failure secondary to above Metabolic encephalopathy Fecal impaction: Resolved Dementia Diabetes mellitus Hypertension Hyperlipidemia History of GERD History of sleep apnea on CPAP/BiPAP Peripheral vascular disease History of coronary artery disease status post stent and AICD Patient Condition at Discharge: Serious Plan - Discharge Summary Discharge Rx Participant: No New Discharge Prescriptions: New Dexamethasone [Decadron] 0.5 mg PO DAILY #60 tablet INSULIN ASPART (NovoLOG) [NovoLOG (formulary)] 0 unit SQ ACHS vial Cholestyramine (with Sugar) [Questran Packet] 4 gm PO TID BETWEEN MEALS PRN packet PRN Reason: Diarrhea Collagenase [Santyl] 1 applic TOPICAL DAILY@1999 applic Sertraline [Zoloft] 75 mg PO DAILY tab Continue lisinopriL [Zestril] 5 mg PO HS Memantine HCl [Namenda] 10 mg PO BID Acetaminophen [Tylenol] 650 tab PO TID@0500,1300,2100 Glucerna Shake 1 can PO TID@0700,1200,1600 Magnesium Hydroxide [Milk of Magnesia] 2,400 mg PO DAILY PRN PRN Reason: Constipation Bismuth Subsalicylate [Pepto-Bismol] 524 mg PO DAILY PRN PRN Reason: Diarrhea Loperamide HCl [Imodium A-D] 2 mg PO DIRECTED PRN PRN Reason: Diarrhea Lansoprazole 15 mg PO DAILY Enoxaparin Sodium 40 mg SQ HS Atorvastatin Calcium [Lipitor] 10 mg PO HS Aspirin [Children's Aspirin] 81 mg PO DAILY Acetaminophen [Tylenol] 650 mg PO Q6H PRN PRN Reason: Pain Discontinued traZODone HCL 100 mg PO HS metFORMIN HCL [Glucophage] 500 mg PO BID Sertraline HCl [Zoloft] 100 mg PO DAILY Dexamethasone [Decadron] 6 mg PO DAILY Discharge Medication List lisinopriL [Zestril] 5 mg PO HS 10/17/13 [History] Memantine HCl [Namenda] 10 mg PO BID 09/20/16 [History] Acetaminophen [Tylenol] 650 tab PO TID@0500,1300,2100 12/16/19 [History] Glucerna Shake 1 can PO TID@0700,1200,1600 08/31/20 [History] Acetaminophen [Tylenol] 650 mg PO Q6H PRN 05/09/20 [History] Aspirin [Children's Aspirin] 81 mg PO DAILY 05/09/20 [History] Atorvastatin Calcium [Lipitor] 10 mg PO HS 05/09/20 [History] Bismuth Subsalicylate [Pepto-Bismol] 524 mg PO DAILY PRN 05/09/20 [History] Enoxaparin Sodium 40 mg SQ HS 05/09/20 [History] Lansoprazole 15 mg PO DAILY 05/09/20 [History] Loperamide HCl [Imodium A-D] 2 mg PO DIRECTED PRN 05/09/20 [History] Magnesium Hydroxide [Milk of Magnesia] 2,400 mg PO DAILY PRN 05/09/20 [History] Cholestyramine (with Sugar) [Questran Packet] 4 gm PO TID BETWEEN MEALS PRN packet 05/15/20 [Rx] Collagenase [Santyl] 1 applic TOPICAL DAILY@1999 applic 05/15/20 [Rx] Dexamethasone [Decadron] 0.5 mg PO DAILY #60 tablet 05/15/20 [Rx] INSULIN ASPART (NovoLOG) [NovoLOG (formulary)] 0 unit SQ ACHS vial 05/15/20 [Rx] Sertraline [Zoloft] 75 mg PO DAILY tab 05/15/20 [Rx] Follow up Appointment(s)/Referral(s): Jung Levine MD [Primary Care Provider] - 1-2 Days
[2020-05-15 17:34] LABS: Glucose,Whole Blood 245 mg/dL (75-99)
--- NOTE | 2020-05-15 20:06 | PN ---
PROGRESS NOTE DATE OF SERVICE: 05/15/2020 REASON FOR FOLLOWUP: MRSA bacteremia, possible pneumonia. INTERVAL HISTORY: The patient is currently afebrile. The patient is breathing comfortably. The patient seems slightly more awake and alert today. Denies any chest pain. No abdominal pain or pain to the left lower extremity. PHYSICAL EXAMINATION: Blood pressure 140/71, pulse of 83, temperature 98.3. He is 94% on 2 L nasal cannula. General description is an elderly male lying in bed in no distress. RESPIRATORY SYSTEM: Unlabored breathing with decreased breath sounds at the base. No wheeze. HEART: S1, S2. Regular rate and rhythm. ABDOMEN: Soft. No tenderness. Respiratory system: Unlabored breathing, decreased breath sounds at bases. No wheeze. HEART: S1, S2. Regular rate and rhythm. LABS: BUN of 19, creatinine 0.84. Blood culture repeat has been negative. DIAGNOSTIC IMPRESSION AND PLAN: Patient with MRSA bacteremia. Source is likely pneumonia; no other evidence of infection. Blood culture repeat has been negative. He has a PICC line. Finishing therapy with vancomycin, Pharmacy to dose, for a total of 2 weeks from his negative blood culture. Close outpatient followup. MMODL / IJN: [id number] /
[2020-05-15] MEDS: lisinopriL 5 MG TAB PO SCH (20:43)
[2020-05-15] MEDS: ATORVASTATIN 20 MG TAB PO SCH (20:43)
[2020-05-15] MEDS: COLLAGENASE 250 UNIT/GM OINTMENT 30 GM TUBE TOPICAL SCH (20:49)
[2020-05-15 21:17] LABS: Glucose,Whole Blood 218 mg/dL (75-99)
[2020-05-16 05:06] VITALS: BP 106/69; PULSE 89; TEMP 97.8
[2020-05-16 06:18] LABS: Glucose,Whole Blood 146 mg/dL (75-99)
[2020-05-16] MEDS: DEXTROSE 5% IN WATER 1,000 ML IV SCH (06:33)
[2020-05-16] MEDS: INSULIN ASPART (NovoLOG) 100 UNIT/ML VIAL SQ SCH (06:34)
[2020-05-16] MEDS ORDERED: VANCOMYCIN TROUGH DUE 1 EACH MISC MISCELLANE ONE (08:00)
[2020-05-16] MEDS ORDERED: POTASSIUM CHLORIDE ER 20 MEQ TAB.ER PO STA (08:01)
[2020-05-16 08:42] LABS: African American GFR (CKD) >90 (>60 ml/min/1.73 sqM); Anion Gap 6 mmol/L; Blood Urea Nitrogen 17 mg/dL (9-20); Calcium 7.9 mg/dL (8.4-10.2); Carbon Dioxide 23 mmol/L (22-30); Chloride 112 mmol/L (98-107); Glucose 145 mg/dL (74-99); Non-African American GFR(CKD) 84 (>60 ml/min/1.73 sqM); Potassium 3.1 mmol/L (3.5-5.1); Sodium 141 mmol/L (137-145)
[2020-05-16] MEDS ORDERED: VANCOMYCIN 1,000 MG in SODIUM CHLORIDE 0.9% 250 ML IVPB SCH (09:00)
[2020-05-16] MEDS: COLCHICINE 0.6 MG EACH PO SCH (09:33)
[2020-05-16] MEDS: ENOXAPARIN 40 MG/0.4 ML SYRINGE SQ SCH (09:33)
[2020-05-16] MEDS: ASPIRIN 81 MG PO SCH (09:33)
[2020-05-16] MEDS: DEXAMETHASONE SOD PHOSPHATE 4 MG/ML 1 ML VIAL IV SCH (09:34)
[2020-05-16] MEDS: FAMOTIDINE 20 MG TAB PO SCH (09:34)
[2020-05-16] MEDS: FERROUS SULFATE 325 MG TAB PO SCH (09:35)
[2020-05-16] MEDS: SERTRALINE 25 MG TAB PO SCH (09:35)
[2020-05-16] MEDS: MEMANTINE 10 MG TAB PO SCH (09:35)
--- NOTE | 2020-05-16 10:52 | P.DS ---
Providers Date of admission: 05/09/20 05:17 Attending physician: Sonali Samuels Consults: 05/09/20 05:17 Consult Physician Routine Consulting Provider: Cain Kingston Consult Reason/Comments: Pneumonia. Covid 10 infection Do you want consulting provider notified?: Yes 05/09/20 12:46 Consult Physician Urgent Consulting Provider: Kwesi Caal Consult Reason/Comments: hypoxia , reported covid Do you want consulting provider notified?: Yes Primary care physician: Jung Levine [place] [facility] Course: Potassium was corrected and patient is being discharged today. GENERAL: The patient is more awake and interactive with answering some questions however he looks confused and he does not follow commands appropriately, not in any acute distress. Well developed, well nourished. HEENT: Pupils are round and equally reacting to light. EOMI. No scleral icterus. No conjunctival pallor. Normocephalic, atraumatic. No pharyngeal erythema. No thyromegaly. CARDIOVASCULAR: S1 and S2 present. No murmurs, rubs, or gallops. PULMONARY: Chest is clear to auscultation, no wheezing or crackles. ABDOMEN: Soft, nontender, nondistended, normoactive bowel sounds. No palpable organomegaly. MUSCULOSKELETAL: No joint swelling or deformity. EXTREMITIES: No cyanosis, clubbing, or pedal edema. Stage II decubitus ulcer on the right heel NEUROLOGICAL: Gross neurological examination did not reveal any focal deficits. SKIN: No rashes. no petechiae. Refer to my discharge summary from yesterday for further details Patient Condition at Discharge: Serious Plan - Discharge Summary Discharge Rx Participant: No New Discharge Prescriptions: New Dexamethasone [Decadron] 0.5 mg PO DAILY #60 tablet INSULIN ASPART (NovoLOG) [NovoLOG (formulary)] 0 unit SQ ACHS vial Cholestyramine (with Sugar) [Questran Packet] 4 gm PO TID BETWEEN MEALS PRN packet PRN Reason: Diarrhea Collagenase [Santyl] 1 applic TOPICAL DAILY@1999 applic Sertraline [Zoloft] 75 mg PO DAILY tab Continue lisinopriL [Zestril] 5 mg PO HS Memantine HCl [Namenda] 10 mg PO BID Acetaminophen [Tylenol] 650 tab PO TID@0500,1300,2100 Glucerna Shake 1 can PO TID@0700,1200,1600 Magnesium Hydroxide [Milk of Magnesia] 2,400 mg PO DAILY PRN PRN Reason: Constipation Bismuth Subsalicylate [Pepto-Bismol] 524 mg PO DAILY PRN PRN Reason: Diarrhea Loperamide HCl [Imodium A-D] 2 mg PO DIRECTED PRN PRN Reason: Diarrhea Lansoprazole 15 mg PO DAILY Enoxaparin Sodium 40 mg SQ HS Atorvastatin Calcium [Lipitor] 10 mg PO HS Aspirin [Children's Aspirin] 81 mg PO DAILY Acetaminophen [Tylenol] 650 mg PO Q6H PRN PRN Reason: Pain Discontinued traZODone HCL 100 mg PO HS metFORMIN HCL [Glucophage] 500 mg PO BID Sertraline HCl [Zoloft] 100 mg PO DAILY Dexamethasone [Decadron] 6 mg PO DAILY Discharge Medication List lisinopriL [Zestril] 5 mg PO HS 10/17/13 [History] Memantine HCl [Namenda] 10 mg PO BID 09/20/16 [History] Acetaminophen [Tylenol] 650 tab PO TID@0500,1300,2100 12/16/19 [History] Glucerna Shake 1 can PO TID@0700,1200,1600 12/16/19 [History] Acetaminophen [Tylenol] 650 mg PO Q6H PRN 05/09/20 [History] Aspirin [Children's Aspirin] 81 mg PO DAILY 05/09/20 [History] Atorvastatin Calcium [Lipitor] 10 mg PO HS 05/09/20 [History] Bismuth Subsalicylate [Pepto-Bismol] 524 mg PO DAILY PRN 05/09/20 [History] Enoxaparin Sodium 40 mg SQ HS 05/09/20 [History] Lansoprazole 15 mg PO DAILY 05/09/20 [History] Loperamide HCl [Imodium A-D] 2 mg PO DIRECTED PRN 05/09/20 [History] Magnesium Hydroxide [Milk of Magnesia] 2,400 mg PO DAILY PRN 05/09/20 [History] Cholestyramine (with Sugar) [Questran Packet] 4 gm PO TID BETWEEN MEALS PRN packet 05/15/20 [Rx] Collagenase [Santyl] 1 applic TOPICAL DAILY@1999 applic 05/15/20 [Rx] Dexamethasone [Decadron] 0.5 mg PO DAILY #60 tablet 05/15/20 [Rx] INSULIN ASPART (NovoLOG) [NovoLOG (formulary)] 0 unit SQ ACHS vial 05/15/20 [Rx] Sertraline [Zoloft] 75 mg PO DAILY tab 05/15/20 [Rx] Follow up Appointment(s)/Referral(s): Jung Levine MD [Primary Care Provider] - 1-2 Days Discharge Disposition: TRANSFER TO SNF/ECF
--- NOTE | 2020-05-20 14:43 | IR ---
EXAMINATION TYPE: IR cvc insert >=5 years DATE OF EXAM: 05/20/2020 COMPARISON: NONE CLINICAL HISTORY: Infection Needs long-term intravenous access for therapy. PROCEDURE: Hand hygiene obtained with soap and water and alcohol-based hand rub. After informed consent, the skin overlying the right brachial vein was localized with ultrasound and noted to be compressible and patent. An ultrasound image was obtained and submitted on the patient's chart. The overlying skin was prepped and draped and Lidocaine was used for local anesthesia. A sk in mack was made with a scalpel. Access was gained to the vein under ultrasound guidance with a 21 g auge needle and a 0.018 inch wire was advanced. Access site was dilated with Peel-Away sheath and ca theter tailored to the appropriate length and advanced. Portable chest x-ray performed, initial image shows folded catheter, line was manipulated and follow-up image shows the catheter tip overlying the superior vena cava. Catheter was fixed to the skin and a sterile dressing was placed following hemo stasis. Catheter was aspirated and flushed with saline. Patient remained without immediate complica tion. Maximal barrier technique is utilized. Ultrasound image is documented on the chart. Ultrasound used with sterile technique. IMPRESSION: STATUS POST ULTRASOUND GUIDED PICC LINE PLACEMENT, READY FOR USE. THIS PROCEDURE WAS PER FORMED BY THE UNDERSIGNED.
== END 2020-05-16 10:06 | DRG 871 ==
LOC: EC 01:52 → 3SCARD 05:17
PROVIDERS: ADMIT Hospitalist; ATTEND Hospitalist
PROC: 5A0955A Assistance with Respiratory Ventilation, Greater than 96 Consecutive Hours, High Flow/Velocity Cannula (ICD-10-PCS; principal; 2020-05-09)
PROC: 02HV33Z Insertion of Infusion Device into Superior Vena Cava, Percutaneous Approach (ICD-10-PCS; 2020-05-15)
DX: A41.02 Sepsis due to Methicillin resistant Staphylococcus aureus (principal); J96.01 Acute respiratory failure with hypoxia; J69.0 Pneumonitis due to inhalation of food and vomit; U07.1 COVID-19; G93.41 Metabolic encephalopathy; J15.212 Pneumonia due to Methicillin resistant Staphylococcus aureus; E87.0 Hyperosmolality and hypernatremia; J44.0 Chronic obstructive pulmonary disease with (acute) lower respiratory infection; R65.20 Severe sepsis without septic shock; L89.622 Pressure ulcer of left heel, stage 2; L89.612 Pressure ulcer of right heel, stage 2; E11.22 Type 2 diabetes mellitus with diabetic chronic kidney disease; E11.42 Type 2 diabetes mellitus with diabetic polyneuropathy; G30.9 Alzheimer's disease, unspecified; F02.80 Dementia in other diseases classified elsewhere, unspecified severity, without behavioral disturbance, psychotic disturbance, mood disturbance, and anxiety; E11.621 Type 2 diabetes mellitus with foot ulcer; E11.51 Type 2 diabetes mellitus with diabetic peripheral angiopathy without gangrene; N18.30 Chronic kidney disease, stage 3 unspecified; Z89.411 Acquired absence of right great toe; Z89.421 Acquired absence of other right toe(s); K56.41 Fecal impaction; Z66 Do not resuscitate; K22.2 Esophageal obstruction; E87.8 Other disorders of electrolyte and fluid balance, not elsewhere classified; I12.9 Hypertensive chronic kidney disease with stage 1 through stage 4 chronic kidney disease, or unspecified chronic kidney disease; E86.1 Hypovolemia; F32.9 Major depressive disorder, single episode, unspecified; I25.10 Atherosclerotic heart disease of native coronary artery without angina pectoris; K21.9 Gastro-esophageal reflux disease without esophagitis; E78.5 Hyperlipidemia, unspecified; G47.30 Sleep apnea, unspecified; F41.9 Anxiety disorder, unspecified; I25.2 Old myocardial infarction; N42.9 Disorder of prostate, unspecified; R13.10 Dysphagia, unspecified; R53.81 Other malaise; Z79.84 Long term (current) use of oral hypoglycemic drugs; Z79.82 Long term (current) use of aspirin; Z79.899 Other long term (current) drug therapy; Z86.73 Personal history of transient ischemic attack (TIA), and cerebral infarction without residual deficits; Z86.19 Personal history of other infectious and parasitic diseases; Z86.14 Personal history of Methicillin resistant Staphylococcus aureus infection; Z95.810 Presence of automatic (implantable) cardiac defibrillator; Z95.5 Presence of coronary angioplasty implant and graft; Z96.642 Presence of left artificial hip joint; Z98.42 Cataract extraction status, left eye; Z98.41 Cataract extraction status, right eye; Z87.891 Personal history of nicotine dependence; Z95.820 Peripheral vascular angioplasty status with implants and grafts; Z98.890 Other specified postprocedural states; Z82.3 Family history of stroke
CPT/HCPCS: 36415; 36573; 71045; 71275; 74177; 80048; 80053; 80202; 82565; 83605; 83615; 83735; 83880; 84132; 84145; 84484; 85025; 85027; 85379; 85610; 85652; 85730; 86140; 87040; 87077; 87186; 87324; 93005; 93306; 94760; 96365; 96366; 99285